=== PATIENT | male | born 1945 | race Caucasian/White ===

== ENCOUNTER 2018-10-08 15:21 | Inpatient (IN) | payer OTHER ==
[~2018-10-08] VITALS: Ht 188 cm; Wt 81.7 kg
[~2018-10-08 15:21] MED LIST: ASPIR 8181 MG; FERROUS GLUCON324 M1 PO; GLIPIZIDE-METF1 EAC2 PO; KAYEXALATE453.6 GM PO; LANTUS 3ML100 UNITS/ SQ; LISINOPRIL10 MG PO; PRAVASTATIN SOD20 MG PO; SULFAMETHOXAZO1 EAC1 PO
[2018-10-08] MEDS ORDERED: HYDROCODONE/APAP 5MG-325MG TAB PO ONE (16:15)
--- NOTE | 2018-10-08 17:26 | Diagnostic Imaging Report ---
Hip complete Indication: Fall, right hip pain ^R HIP Technique: AP and lateral views of right hip obtained. Comparison: None Findings: Fracture of the proximal neck of the right femur without significant displacement of fracture fragments. The femoral head remains articulated with the acetabulum. The acetabulum appears intact. The adjacent pubic rami appear intact. The left hip is intact and normally situated. No diastases the pubic symphysis or sacroiliac joints. There are degenerative changes of the visualized lumbar spine. IMPRESSION: Fracture of the proximal neck of the right femur without dislocation of the femoral head. Signed by: Dr. Pily Navarro MD on 10/08/2018 5:23 PM
[2018-10-08 18:28] LABS: BASOPHILS % 0.3 % (0.0-1.0); EOSINOPHILS # (AUTO) 0.1 (0.0-0.4); EOSINOPHILS % 0.9 % (0.0-6.0); HEMATOCRIT 32.5 % (38.2-49.6); HEMOGLOBIN 10.9 g/dL (14.0-18.0); LYMPHOCYTES # (AUTO) 0.5 (1.0-3.2); LYMPHOCYTES % 4.9 % (18.0-39.1); MEAN CORPUSCULAR HEMOGLOBIN 31.1 pg (28-32); MEAN CORPUSCULAR HGB CONC 33.5 g/dL (31-35); MEAN CORPUSCULAR VOLUME 92.6 fL (81-99); MONOCYTES # (AUTO) 0.9 (0.2-0.8); NEUTROPHILS # (AUTO) 8.8 (2.1-6.9); NEUTROPHILS % 84.4 % (38.7-80.0); PLATELET COUNT 266 x10e3/uL (140-360); RED BLOOD COUNT 3.51 x10e6/uL (4.3-5.7); RED CELL DISTRIBUTION WIDTH 15.3 % (11.7-14.4)
[2018-10-08] MEDS ORDERED: NIFEDIPINE 10 MG CAP PO ONE (18:30)
[2018-10-08] MEDS ORDERED: MORPHINE SULFATE 5 MG/ML VIAL IV ONE (18:30)
[2018-10-08] MEDS ORDERED: MORPHINE SULFATE INJ 4 MG/ML INJ 1ML IV ONE (18:30)
[2018-10-08 18:37] LABS: INR 0.84
[2018-10-08 18:38] LABS: PARTIAL THROMBOPLASTIN TIME 29.2 seconds (23.8-35.5)
[2018-10-08 18:41] LABS: ANION GAP 14.5 mmol/L (8-16); CALCIUM 8.3 mg/dL (8.4-10.2); CREATININE, SERUM 2.03 mg/dL (0.72-1.25); POTASSIUM 5.5 mmol/L (3.5-5.1)
[2018-10-08] MEDS ORDERED: MORPHINE SULFATE 2 MG/ML SYR 1ML IV PRN (18:45)
[2018-10-08] MEDS ORDERED: DEXTROSE 50% SYRINGE 50 ML IV PRN (18:45)
[2018-10-08] MEDS ORDERED: ONDANSETRON HCL INJ 2MG/ML 2ML 2 MG/ML VIAL IV PRN (18:45)
--- NOTE | 2018-10-08 18:52 | NUR ---
DR. TAPIA AND YEVGENIY RN NOTIFIED AND AWARE OF CRITICAL LAB VALUE; GLUCOSE 660.
[2018-10-08] MEDS ORDERED: INSULIN REGULAR, HUMAN 100 UNIT/1 ML 3ML VIAL IV ONE (19:00)
[2018-10-08] MEDS ORDERED: SODIUM CHLORIDE 0.9% 1000ML 1,000 ML IV ONE (19:00)
[2018-10-08] MEDS ORDERED: MORPHINE SULFATE INJ 4 MG/ML INJ 1ML IV PRN (19:00)
--- OUTSIDE RECORDS SUMMARY | 2018-10-08 19:05 | XMS REPORT ---
Author Author [facility] Address Unknown Phone Unavailable Care Team Providers Care Vocational Placement Specialist Name Role Phone Ade TAPIA Unavailable Unavailable Problems This patient has no known problems. Allergies, Adverse Reactions, Alerts This patient has no known allergies or adverse reactions. Medications This patient has no known medications. Results Test Description Test Time Test Comments Text Results Atomic Results Result Comments HIP RIGHT 2-3 VW (+/- PELVIS) 2018-10-08 17:19:00 [place] [address] Patient Name: ROSY WEBB JR, V MR #: [id number] : 1945 Age/Sex: 73/M Req #: [id number] Adm Physician: Ordered by: TEDDY TAPIA MD Report #: [id number] Location: ER Room/Bed: Procedure: [id number] DX/HIP RIGHT 2-3 VW (+/- PELVIS) Exam Date: Exam Time: REPORT STATUS: Signed Hip complete Indication: Fall, right hip pain R HIP Technique: AP and lateral views of right hip obtained. Comparison: None Findings: Fracture of the proximal neck of the right femur without significant displacement of fracture fragments. The femoral head remains articulated with the acetabulum. The acetabulum appears intact. The adjacent pubic rami appear intact. The left hip is intact and normally situated. N o diastases the pubic symphysis or sacroiliac joints. There are degenerative changes of the visualized lumbar spine. IMPRESSION: Fracture of the proximal neck of the right femur without dislocation of the femoral head. Signed by: Dr. Lionel Navarro MD on 10/08/2018 5:23 PM Dictated By: LIONEL NAVARRO MD 22 Transcribed By: AUBREY on 10/08/181722 COPY TO: TEDDY TAPIA MD
--- NOTE | 2018-10-08 19:32 | Diagnostic Imaging Report ---
EXAMINATION: CHEST SINGLE (PORTABLE) COMPARISON: None INDICATION: ^pre op ^[id number] ^1830 DISCUSSION: Frontal view of the chest obtained at 1853 hours. HEART AND MEDIASTINUM: The heart is normal in size. The aorta is tortuous LINES: None. LUNGS: The lungs are well inflated and clear. No pneumonia or pulmonary edema. PLEURA: No pleural effusion or pneumothorax. BONES AND SOFT TISSUES: No focal osseous lesion. The soft tissues are normal. IMPRESSION: No acute cardiopulmonary disease. Signed by: Dr. Pily Navarro MD on 10/08/2018 7:29 PM
--- NOTE | 2018-10-08 19:55 | NUR ---
Report received from Aleksey. Patient will be on Guzman's traction of 5 lbs. Patient will be on ADA diet no need for NPO after midnight. No plans for surgery yet. Plans to have consultation for senior production supervisor tomorrow no orders yet per Paola SHINE.
[2018-10-08] MEDS: LABETALOL HCL 5 MG/ML 20ML VIAL IV PRN (19:57)
[2018-10-08 20:05] VITALS: BP 190/84
--- NOTE | 2018-10-08 20:05 | NUR ---
Received patient from E.R. via stretcher. Patient is alert and responsive. Assisted to bed . Oriented to room. Call light within reached. Guzman's traction, Amando hose and foot pumps applied as ordered.
[2018-10-08] MEDS: INSULIN REGULAR, HUMAN 100 UNIT/1 ML 3ML VIAL SQ SCH (21:39)
[2018-10-08 22:02] VITALS: BP 190/84
--- NOTE | 2018-10-08 22:15 | NUR ---
Blood Pressure improving 170/73 mmhg. Asymptomatic.
[2018-10-08 22:50] VITALS: BP 190/84
[2018-10-09] VITALS (7 sets, daily range): BP systolic 121–190; BP diastolic 61–77
[2018-10-09] MEDS ORDERED: INSULIN GLARGINE 100 UNITS/ML VIAL SQ ONE (00:45)
[2018-10-09] MEDS ORDERED: SODIUM CHLORIDE 0.9% 1000ML 1,000 ML IV ONE (00:45)
[2018-10-09] MEDS ORDERED: ACETAMINOPHEN 325 MG TAB PO PRN (00:45)
--- NOTE | 2018-10-09 00:58 | NUR ---
History and Physical dictated [id number] Patient being optimized for surgery. He may pursue surgery when the glucose, creatinine, and potassium demonstrate better normalization/stability. No high indication for further cardiac specific workup at this time. There is inherent risk of pursuing a cardiac workup in the setting of his CKD and his baseline cardiac risk does not support this workup. His hip surgery would be unnecessarily delayed. Based on his baseline status, he may pursue surgery from a cardiac point of view withOUT a high risk. Routine perioperative care is recommended to minimize complication risks.
--- NOTE | 2018-10-09 01:00 | NUR ---
Called family and s/w . states she will come up to hospital to asst with her . Called MD and received pain meds and order for PRN sitter.
--- NOTE | 2018-10-09 02:03 | History and Physical ---
PRIMARY CARE DOCTOR: Dr. Maverick Parada. [facility] PHYSICIAN: Dr. Boston Gonzales [facility]. CHIEF COMPLAINT: Fall. HISTORY OF PRESENT ILLNESS: Mr. Verduzco is a 73-year-old gentleman with a fall. The patient in usual state of health when he was at the [employer]. The patient states he tripped over a rolled carpet. He landed on his right hip. The patient sustained pain immediately. The pain was at least moderate in intensity. The patient hard time walking, so he came to the emergency room. The patient came to emergency room where imaging was performed that demonstrated a fracture of the proximal neck of the right femur without dislocation of the femoral head. He was admitted for rapid workup and evaluation. The patient has never had any other surgeries in his life. He did not have any cardiac workup in the past. Exercise tolerance he gets is about 6 to 7 blocks assistance. The patient's EKG with normal sinus rhythm at 76 beats per minute, only nonspecific ST and T changes, but was near normal. PAST MEDICAL HISTORY: Hypertension, diabetes, anemia, and hyperlipidemia. MEDICATIONS: Medication list reviewed per the chart record. ALLERGIES: NO KNOWN DRUG ALLERGIES. SOCIAL HISTORY: No alcohol. No drugs. He smoked from 13 to active, two packs per day. 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 FAMILY HISTORY: Noncontributory to this condition. REVIEW OF SYSTEMS: GENERAL: No weight changes. OPHTHALMOLOGIC: No double vision. ENT: No mouth ulcers. ENDOCRINE: No thyroid disease. PULMONARY: No asthma. ALLERGY/IMMUNOLOGY: No chronic allergies. CARDIAC: No heart attack known. GI: No constipation. : No blood in urine. DERMATOLOGIC: No rash. MUSCULOSKELETAL: Mild arthritis. NEUROLOGIC: No seizures. PHYSICAL EXAMINATION: VITAL SIGNS: Afebrile, vital signs noted reviewed per the chart record. Blood pressure 190/84 and 75 heart rate. HEENT: Normocephalic and atraumatic. NECK: Supple. Throat midline. LUNGS: Bilateral air entry, reasonable, mostly clear. CARDIOVASCULAR: S1 and S2. No murmurs, rubs, or gallops. ABDOMEN: Soft and nontender. EXTREMITIES: No clubbing, no cyanosis, no edema. INTEGUMENT: No rash. No purpura. LABORATORY DATA: 133 sodium, 5.5 potassium, 20 bicarbonate, 39 BUN, and creatinine 2.03. MCV is 93, RDW is 15.3. Coagulation time is unremarkable. Chemistry with glucose 660, but it came down to 297. In June 2016, his creatinine was 1.5. Chest x-ray with clear lungs. IMPRESSION AND PLAN: 1. Acute right hip fracture. 2. Hyperkalemia, mild. 3. Hyponatremia, mild. 4. Chronic kidney disease, acute kidney injury. 5. Diabetes, uncontrolled. 6. Hypertension. 7. Hyperlipidemia. 8. Mild anemia. 9. Chronic smoker. Repeat blood work in the morning and distinctly more normalize before he goes for surgery. More consideration would be helpful in the long run. Repeat electrolytes in the morning and ensure stability. Control blood pressure slowly. Treat for hypertensive urgency. Hold metformin in preoperative manner. Thank you very much, Dr. Parada for allowing me the chance to participate in the care of Mr. Verduzco. Do not hesitate to call for questions. MD ORLANDO Dozier/ABBY /[id number] MTDLuis
[2018-10-09] MEDS: LABETALOL HCL 5 MG/ML 20ML VIAL IV PRN (05:03)
[2018-10-09 06:00] LABS: BASOPHILS % 0.4 % (0.0-1.0); EOSINOPHILS # (AUTO) 0.2 (0.0-0.4); HEMATOCRIT 31.8 % (38.2-49.6); HEMOGLOBIN 10.2 g/dL (14.0-18.0); LYMPHOCYTES # (AUTO) 1.3 (1.0-3.2); LYMPHOCYTES % 14.1 % (18.0-39.1); MEAN CORPUSCULAR HEMOGLOBIN 30.1 pg (28-32); MEAN CORPUSCULAR HGB CONC 32.1 g/dL (31-35); MEAN CORPUSCULAR VOLUME 93.8 fL (81-99); MONOCYTES # (AUTO) 1.1 (0.2-0.8); MONOCYTES % 11.7 % (4.4-11.3); NEUTROPHILS # (AUTO) 6.6 (2.1-6.9); NEUTROPHILS % 71.4 % (38.7-80.0); PLATELET COUNT 238 x10e3/uL (140-360); RED BLOOD COUNT 3.39 x10e6/uL (4.3-5.7); RED CELL DISTRIBUTION WIDTH 15.5 % (11.7-14.4)
[2018-10-09 06:12] LABS: ALBUMIN 2.8 g/dL (3.5-5.0); ANION GAP 13.4 mmol/L (8-16); CALCIUM 8.4 mg/dL (8.4-10.2); CREATININE, SERUM 1.52 mg/dL (0.72-1.25); MAGNESIUM 1.8 MG/DL (1.3-2.1); PHOSPHORUS 3.1 MG/DL (2.3-4.7); POTASSIUM 4.4 mmol/L (3.5-5.1)
--- NOTE | 2018-10-09 06:19 | NUR ---
Message left for Dr. Steiner regarding this consultation.
--- NOTE | 2018-10-09 07:00 | NUR ---
BEDSIDE SHIFT REPORT FROM MARIAM SHINE. PT DENIES NEEDS AT THIS TIME.
[2018-10-09] MEDS: INSULIN REGULAR, HUMAN 100 UNIT/1 ML 3ML VIAL SQ SCH ×4 (07:30→21:00)
--- NOTE | 2018-10-09 08:15 | Diagnostic Imaging Report ---
EXAMINATION: CHEST SINGLE (PORTABLE) INDICATION: Chronic kidney disease COMPARISON: None FINDINGS: AP view TUBES and LINES: None. LUNGS: Lungs are well inflated. Lungs are clear. There is mild prominence of the central pulmonary vasculature, consistent with pulmonary venous congestion. PLEURA: No pleural effusion or pneumothorax. HEART AND MEDIASTINUM: The cardiomediastinal silhouette is unremarkable. Aortic arch calcifications. BONES AND SOFT TISSUES: No acute osseous lesion. Soft tissues are unremarkable. UPPER ABDOMEN: No free air under the diaphragm. IMPRESSION: Central pulmonary vascular congestion. Signed by: Aashish Santoro DO on 10/09/2018 8:11 AM
[2018-10-09] MEDS: METOPROLOL TARTRATE 50 MG TAB PO SCH ×2 (08:26→17:58)
[2018-10-09] MEDS: HEPARIN SOD (PORCINE) 5,000 UNIT/ML VIAL SC SCH ×2 (08:27→21:00)
[2018-10-09] MEDS ORDERED: CEFAZOLIN SOD 1 GM VIAL IV ONE (18:30)
--- NOTE | 2018-10-09 19:56 | NUR ---
Received change of shift report from AM nurse. Walking rounds completed.
--- NOTE | 2018-10-09 20:39 | NUR ---
MEDICINE Coverage for Dr Gonzales Date of encounter: 10/09/18 SUBJECTIVE: pain ok RA fio2 creatinine better, k better bp mildly high earlier REVIEW OF SYSTEMS: no bleeding, no rash PHYSICAL EXAMINATION: VITAL SIGNS: vital signs noted reviewed per the chart record. HEENT: Normocephalic and atraumatic. NECK: Supple. Throat midline. LUNGS: Bilateral air entry, clear. CARDIOVASCULAR: S1 and S2. No murmurs, rubs, or gallops. ABDOMEN: Soft and nontender. EXTREMITIES: No clubbing, no cyanosis, no edema. INTEGUMENT: No rash. No purpura. LABORATORY DATA: 4.4 k, 24 hco3, bun 32, cr 1.52. 9.2 wbc, 32 hct, 238 plt. Chest x-ray with possible mild congestion IMPRESSION AND PLAN: 1. Acute right hip fracture. 2. Hyperkalemia, mild. 3. Hyponatremia, mild. 4. Chronic kidney disease, acute kidney injury. 5. Diabetes, uncontrolled. 6. Hypertension. 7. Hyperlipidemia. 8. Mild anemia. 9. Chronic smoker. Repeat AM labs d/c IVF follow glucose Hold blood thinners control bp Hold metformin in preoperative manner. No high indication for further cardiac specific workup at this time. There is inherent risk of pursuing a cardiac workup in the setting of his CKD and his baseline cardiac risk does not support this workup. His hip surgery would be unnecessarily delayed. Based on his baseline status, he may pursue surgery from a cardiac point of view withOUT a high risk. Routine perioperative care is recommended to minimize complication risks. Beta blockers Thank you very much, Dr. Parada for allowing me the chance to participate in the care of Mr. Verduzco. Do not hesitate to call for questions.
[2018-10-09] MEDS ORDERED: AMLODIPINE BESYLATE 5 MG TAB PO NR (20:45)
[2018-10-09] MEDS: INSULIN GLARGINE 100 UNITS/ML VIAL SQ SCH (21:00)
[2018-10-09] MEDS: PRAVASTATIN 20 MG TAB PO SCH (21:00)
[2018-10-09] MEDS ORDERED: INSULIN GLARGINE 100 UNITS/ML VIAL SQ SCH (21:00)
--- NOTE | 2018-10-09 22:00 | NUR ---
Patient confused and attemping to get out of bed. Pt removing bucks traction and at risk of falling. Bed alarm on and SR up x2-3. But patient continue to climb through bed SR. Continue monitor. IV intact Replaced mota traction. Offered patient to void.
[2018-10-10] VITALS: BP 176/73
--- NOTE | 2018-10-10 | NUR ---
Patient near fall. Informed house sup. Shantal Delarosa and charge nurse JUDE. Patient given tylenol.
[2018-10-10] MEDS ORDERED: SODIUM CHLORIDE 0.9% 1000ML 1,000 ML IV SCH ×2 (00:05→13:00)
[2018-10-10] MEDS ORDERED: ACETAMINOPHEN/CODEINE 300MG - 30MG TAB PO PRN (01:00)
--- NOTE | 2018-10-10 02:00 | NUR ---
arrived to hospital. Patient in bed resting quitly at this time. Continue monitor.
[2018-10-10 04:00] VITALS: BP 170/77
--- NOTE | 2018-10-10 04:00 | NUR ---
Patient BP at 170/77. PRN labatolol given. Continue monitor. Recheck BP.
[2018-10-10] MEDS: LABETALOL HCL 5 MG/ML 20ML VIAL IV PRN ×3 (04:47→15:59)
--- NOTE | 2018-10-10 05:58 | NUR ---
Patient continue to rest quitly with at bedside.
[2018-10-10 06:40] LABS: ANION GAP 10.2 mmol/L (8-16); CALCIUM 8.2 mg/dL (8.4-10.2); CREATININE, SERUM 1.42 mg/dL (0.72-1.25); POTASSIUM 4.2 mmol/L (3.5-5.1)
[2018-10-10] MEDS ORDERED: CEFAZOLIN SOD 2 GM/D5W 50ML 50 ML IV ONE (07:00)
--- NOTE | 2018-10-10 07:07 | NUR ---
pt alert resp even and unlabored this time, no s/s of distress noted at this time, pt able to make needs known, pt at bedside, pt call light in reach.
[2018-10-10] MEDS: INSULIN REGULAR, HUMAN 100 UNIT/1 ML 3ML VIAL SQ SCH ×4 (07:30→20:27)
[2018-10-10 08:16] VITALS: BP 198/91
[2018-10-10 08:22] VITALS: BP 198/91
[2018-10-10] MEDS: METOPROLOL TARTRATE 50 MG TAB PO SCH ×2 (09:00→17:26)
[2018-10-10] MEDS ORDERED: AMLODIPINE BESYLATE 5 MG TAB PO SCH (09:00)
[2018-10-10] MEDS ORDERED: CEFAZOLIN SOD 1 GM/NS 50ML 100 ML IV ONE (11:41)
--- NOTE | 2018-10-10 11:46 | NUR ---
MEDICINE Coverage for Dr Gonzales Date of encounter: 10/10/18 SUBJECTIVE: RA fio2 calm some confusion after morphine last night REVIEW OF SYSTEMS: no bleeding, no rash PHYSICAL EXAMINATION: VITAL SIGNS: vital signs noted reviewed per the chart record. HEENT: Normocephalic and atraumatic. NECK: Supple. Throat midline. LUNGS: Bilateral air entry, clear. CARDIOVASCULAR: S1 and S2. No murmurs, rubs, or gallops. ABDOMEN: Soft and nontender. EXTREMITIES: No clubbing, no cyanosis, no edema. INTEGUMENT: No rash. No purpura. LABORATORY DATA: k 4.2, cr 1.42. 9.2 wbc, 32 hct, plt 238 IMPRESSION AND PLAN: 1. Acute right hip fracture. 2. Chronic kidney disease stage III?, acute kidney injury better. 5. Diabetes, uncontrolled. 6. Hypertension. 7. Hyperlipidemia. 8. Mild anemia. 9. Chronic smoker. Light insulin, coverage of glucose Repeat AM labs IVF pre-op Surgery of hip today Hold blood thinners control bp Thank you very much, Dr. Parada for allowing me the chance to participate in the care of Mr. Verduzco. Do not hesitate to call for questions.
[2018-10-10] MEDS ORDERED: ACETAMINOPHEN 1000 MG/100 ML IV PRN (13:00)
[2018-10-10] MEDS ORDERED: NALOXONE HCL INJ 0.4 MG/ML AMP IV PRN (13:00)
[2018-10-10] MEDS ORDERED: FENTANYL CITRATE/PF 100MCG/2 ML INJ ONE ×2 (13:45→19:31)
[2018-10-10] MEDS ORDERED: HYDRALAZINE HCL 20 MG/ML VIAL ONE (13:56)
[2018-10-10] MEDS ORDERED: HYDROMORPHONE 0.2MG/ML-SOD CHL 30ML PCA SYRINGE IV ONE (14:17)
[2018-10-10] MEDS: HYDROMORPHONE 0.2MG/ML-SOD CHL 30ML PCA SYRINGE IV PRN ×3 (14:17→20:13)
--- NOTE | 2018-10-10 14:20 | NUR ---
pt arrived to room resp even and unlabored , pt has Jorgensen to gravity clear yell ow urine inside , pt states pain at 8/10 when asked pt was instructed to pump button on his CONSULTANT NURSE Dilaudid, call light in reach, family members at bedside.
[2018-10-10 15:50] VITALS: BP 183/76
--- NOTE | 2018-10-10 16:25 | Diagnostic Imaging Report ---
Exam: Right hip 2 views Clinical history: Status post right hip pinning Comparison: Right hip series, October 08, 2018 Findings: The patient is status post ORIF of right neck fracture. The fracture fragments are fixated with 3 lag screws inserted through the right greater trochanter. The overall alignment appears anatomical. Soft tissue is unremarkable. Impression: 1. Status post right proximal hip ORIF with postoperative changes. Signed by: Dr. Joseph Larson MD on 10/10/2018 4:22 PM
[2018-10-10] MEDS ORDERED: MAGNESIUM SULFATE 2GM/50ML 50 ML IV ONE (16:30)
[2018-10-10] MEDS: NIFEDIPINE CR 30 MG TAB PO SCH (16:53)
--- NOTE | 2018-10-10 19:00 | NUR ---
Received change of shift report from AM nurse. Walking rounds completed.
[2018-10-10] MEDS ORDERED: MIDAZOLAM HCL 2 MG/2 ML VIAL ONE (19:31)
[2018-10-10 20:00] VITALS: BP 156/69
[2018-10-10] MEDS: CEFAZOLIN SOD 1 GM/NS 50ML 50 ML IV SCH (20:00)
[2018-10-10] MEDS: PRAVASTATIN 20 MG TAB PO SCH (20:27)
[2018-10-10] MEDS: INSULIN GLARGINE 100 UNITS/ML VIAL SQ SCH (20:28)
--- NOTE | 2018-10-10 22:53 | Consultation ---
DATE OF CONSULTATION: 10/09/2018 Consultation Note HISTORY OF PRESENT ILLNESS: Mr. Guur Verduzco is known to our Nephrology Service, 73-year-old gentleman, underlying history of hypertension, type 2 diabetes with diabetic nephropathy, chronic kidney disease stage 3, history of hyperlipidemia, status post ORIF of right hip, renal consult for management of kidney failure. He is currently resting, by bedside. No apparent distress. ALLERGIES: NO APPARENT DRUG ALLERGIES. SOCIAL HISTORY: The patient continues to smoke. Does not drink. , good family support. CURRENT MEDICATIONS: On IV normal saline at 100 mL an hour. He is on hydromorphone, metoprolol 50 mg p.o. b.i.d., insulin q.a.c. and h.s., pravastatin 20 mg at bedtime, Xarelto 10 mg daily, Zofran p.r.n., received a dose of Ancef x3 perioperatively. PHYSICAL EXAMINATION: GENERAL: Awake, alert, oriented, lying supine, in no apparent distress VITAL SIGNS: With a blood pressure of 166/73, pulse rate 56, afebrile. HEAD AND NECK: Cornea clear. Mucosa moist. LUNGS: Relatively clear. Poor gas exchange, lower zones. HEART: S1, S2 audible. ABDOMEN: Otherwise soft, nontender. EXTREMITIES: Lower extremity examination, no edema or traction noted. IMPRESSION AND PLAN: 1. Bleul-ar-yzbibup kidney failure. 2. Underlying hypertension. 3. Type 2 diabetes. 4. End-organ damage. 5. Chronic kidney disease 3. LABORATORY DATA: Lab test shows sodium 136, potassium 4.4, bicarbonate 24, creatinine 1.5 with a magnesium level of 1.8 and phosphorus 3.1. IMPRESSION: Underlying mild hypomagnesemia, we will replace magnesium, titrate blood pressure medications. Heart rate noted. We will resume Lasix tomorrow. Serum creatinine appears at baseline. MD LOULOU Hercules/ABBY /[id number]
[2018-10-11] VITALS (9 sets, daily range): BP systolic 118–184; BP diastolic 53–82
--- NOTE | 2018-10-11 00:59 | NUR ---
Patient in bed becoming slightly confused. Pt removing tele. Encouraged patient to not remove tele. Patient verbalized understanding.
[2018-10-11] MEDS: HYDROMORPHONE 0.2MG/ML-SOD CHL 30ML PCA SYRINGE IV PRN (02:25)
--- NOTE | 2018-10-11 02:39 | NUR ---
Patient resting quitly with no c/o at this time. Continue monitor.
[2018-10-11] MEDS: CEFAZOLIN SOD 1 GM/NS 50ML 50 ML IV SCH ×2 (03:44→11:14)
--- NOTE | 2018-10-11 05:50 | NUR ---
Patient resting quitly with no c/o at this time. Continue monitor.
[2018-10-11 06:14] LABS: BASOPHILS % 0.3 % (0.0-1.0); EOSINOPHILS # (AUTO) 0.1 (0.0-0.4); EOSINOPHILS % 0.7 % (0.0-6.0); HEMATOCRIT 32.2 % (38.2-49.6); HEMOGLOBIN 10.5 g/dL (14.0-18.0); LYMPHOCYTES # (AUTO) 0.9 (1.0-3.2); LYMPHOCYTES % 9.1 % (18.0-39.1); MEAN CORPUSCULAR HEMOGLOBIN 30.6 pg (28-32); MEAN CORPUSCULAR HGB CONC 32.6 g/dL (31-35); MEAN CORPUSCULAR VOLUME 93.9 fL (81-99); MONOCYTES # (AUTO) 1.2 (0.2-0.8); MONOCYTES % 12.7 % (4.4-11.3); NEUTROPHILS # (AUTO) 7.3 (2.1-6.9); NEUTROPHILS % 76.8 % (38.7-80.0); PLATELET COUNT 241 x10e3/uL (140-360); RED BLOOD COUNT 3.43 x10e6/uL (4.3-5.7); RED CELL DISTRIBUTION WIDTH 15.5 % (11.7-14.4)
[2018-10-11 06:35] LABS: ALBUMIN 2.6 g/dL (3.5-5.0); ALBUMIN/GLOBULIN RATIO 0.8 (0.8-2.0); ANION GAP 13.6 mmol/L (8-16); CALCIUM 8.2 mg/dL (8.4-10.2); CREATININE, SERUM 1.59 mg/dL (0.72-1.25); MAGNESIUM 2.3 MG/DL (1.3-2.1); PHOSPHORUS 3.9 MG/DL (2.3-4.7); POTASSIUM 4.6 mmol/L (3.5-5.1)
--- NOTE | 2018-10-11 07:00 | NUR ---
BEDSIDE SHIFT REPORT FROM PRINCE SHINE. PT DENIES NEEDS AT THIS TIME.
[2018-10-11] MEDS: ONDANSETRON HCL INJ 2MG/ML 2ML 2 MG/ML VIAL IV PRN ×2 (07:11→13:58)
[2018-10-11] MEDS: INSULIN REGULAR, HUMAN 100 UNIT/1 ML 3ML VIAL SQ SCH ×4 (07:30→20:45)
--- NOTE | 2018-10-11 07:30 | Diagnostic Imaging Report ---
EXAMINATION: CHEST SINGLE (PORTABLE) INDICATION: Congestive heart failure COMPARISON: Chest radiograph 10/09/2018 FINDINGS: AP view TUBES and LINES: None. LUNGS: Lungs are well inflated. Lungs are clear. There is mild prominence of the central pulmonary vasculature, consistent with pulmonary venous congestion. PLEURA: No pleural effusion or pneumothorax. HEART AND MEDIASTINUM: The cardiomediastinal silhouette is unremarkable. BONES AND SOFT TISSUES: No acute osseous lesion. Soft tissues are unremarkable. UPPER ABDOMEN: No free air under the diaphragm. IMPRESSION: Central pulmonary vascular congestion. Signed by: Aashish Santoro DO on 10/11/2018 7:27 AM
[2018-10-11] MEDS: RIVAROXABAN 10 MG TABLET PO SCH (08:31)
[2018-10-11] MEDS: FUROSEMIDE 40 MG TAB PO SCH (08:31)
[2018-10-11] MEDS: NIFEDIPINE CR 30 MG TAB PO SCH (08:32)
[2018-10-11] MEDS: METOPROLOL TARTRATE 50 MG TAB PO SCH ×2 (08:32→17:09)
--- NOTE | 2018-10-11 12:45 | NUR ---
EDUCATED ABOUT IMM, SIGNED, FILED IN CHART, WITH COPY LEFT WITH FAMILY AT BEDSIDE. GOT CHOICE FOR [facility] AND FAXED CLINICALS. RTF COMPLETED AND PUT WITH PACKET AT NURSES STATIONS.
[2018-10-11] MEDS ORDERED: HYDROCODONE/APAP 10MG-325MG TAB PO PRN (16:45)
[2018-10-11] MEDS ORDERED: HYDROCODONE/APAP 5MG-325MG TAB PO PRN (16:45)
--- NOTE | 2018-10-11 18:32 | NUR ---
GROVES REMOVED AT THIS TIME. PT TOLERATED.
--- NOTE | 2018-10-11 19:10 | NUR ---
report received. patient in stable condition. aaox3, sitting in bed. right hip dressing c/d/i. foot pumps bilaterally, erik hose to left leg. no needs voiced at this time. patient dtv- instructed to use urinal and call once void. bed locked and in lowest position, call light within easy reach. bed alarm on.
[2018-10-11] MEDS: PRAVASTATIN 20 MG TAB PO SCH (20:45)
[2018-10-11] MEDS: INSULIN GLARGINE 100 UNITS/ML VIAL SQ SCH (20:45)
--- NOTE | 2018-10-11 23:23 | NUR ---
MEDICINE Coverage for Dr Gonzales Date of encounter: 10/11/18 SUBJECTIVE: Less confusion today he was having emesis bouts family delivered lots of outside food and smokeless tobacco for the patient RA fio2 REVIEW OF SYSTEMS: no bleeding, no rash PHYSICAL EXAMINATION: VITAL SIGNS: vital signs noted reviewed per the chart record. HEENT: Normocephalic and atraumatic. NECK: Supple. Throat midline. LUNGS: Bilateral air entry, clear. CARDIOVASCULAR: S1 and S2. No murmurs, rubs, or gallops. ABDOMEN: Soft and nontender. EXTREMITIES: No clubbing, no cyanosis, no edema. INTEGUMENT: No rash. No purpura. LABORATORY DATA: hct 32, 9.5 wbc, plt 241 k 4.6, cr 1.59 IMPRESSION AND PLAN: 1. Acute right hip fracture. 2. Chronic kidney disease stage III?, acute kidney injury better. 5. Diabetes, uncontrolled. 6. Hypertension. 7. Hyperlipidemia. 8. Mild anemia. 9. Chronic smoker. d/c SPLITTER OPERATOR d/c parrish after SPLITTER OPERATOR off Light insulin coverage for glycemia follow emesis, supportive care. once functional, decide on disposition DVT ppx - rivaroxaban was started control bp slowly Thank you very much, Dr. Parada for allowing me the chance to participate in the care of Mr. Verduzco. Do not hesitate to call for questions.
[2018-10-12 04:39] VITALS: BP 136/63
[2018-10-12 05:42] LABS: HEMATOCRIT 28.3 % (38.2-49.6); HEMOGLOBIN 9.4 g/dL (14.0-18.0)
--- NOTE | 2018-10-12 06:44 | Diagnostic Imaging Report ---
EXAMINATION: CHEST SINGLE (PORTABLE) INDICATION: Congestive heart failure COMPARISON: Chest radiograph 10/11/2018 FINDINGS: AP view TUBES and LINES: None. LUNGS: Lungs are well inflated. Subtle hazy opacity in the right apex. There is mild prominence of the central pulmonary vasculature, consistent with pulmonary venous congestion. PLEURA: No pleural effusion or pneumothorax. HEART AND MEDIASTINUM: The cardiomediastinal silhouette is unremarkable. BONES AND SOFT TISSUES: No acute osseous lesion. Soft tissues are unremarkable. UPPER ABDOMEN: No free air under the diaphragm. IMPRESSION: Pulmonary vascular congestion. Subtle hazy opacity in the right lung apex may represent trace pleural fluid Signed by: Aashish Santoro DO on 10/12/2018 6:41 AM
--- NOTE | 2018-10-12 07:00 | NUR ---
BEDSIDE SHIFT REPORT FROM WALLPAPERER HELPER RN. PT DENIES NEEDS AT THIS TIME.
[2018-10-12] MEDS: INSULIN REGULAR, HUMAN 100 UNIT/1 ML 3ML VIAL SQ SCH ×4 (07:30→20:13)
[2018-10-12 07:51] VITALS: BP 191/77
[2018-10-12] MEDS: METOPROLOL TARTRATE 50 MG TAB PO SCH ×2 (07:53→16:39)
[2018-10-12] MEDS: FUROSEMIDE 40 MG TAB PO SCH (07:53)
[2018-10-12] MEDS: RIVAROXABAN 10 MG TABLET PO SCH (07:53)
[2018-10-12] MEDS: NIFEDIPINE CR 30 MG TAB PO SCH (07:54)
[2018-10-12 08:00] VITALS: BP 191/77
[2018-10-12 11:51] VITALS: BP 108/49
--- NOTE | 2018-10-12 15:17 | NUR ---
pt refusing this pm due to pain level i9s high from the walk this am... Addendum: 10/12/18 at 1518 by Corey Ross PTA Amended: Links added.
[2018-10-12 15:27] VITALS: BP 164/71
[2018-10-12 19:33] VITALS: BP 159/69
[2018-10-12] MEDS: INSULIN GLARGINE 100 UNITS/ML VIAL SQ SCH (20:14)
[2018-10-12] MEDS: PRAVASTATIN 20 MG TAB PO SCH (20:52)
--- NOTE | 2018-10-12 23:13 | Progress Note ---
DATE: ADMITTING PHYSICIAN: Mariela Gonzales MD. CHIEF COMPLAINT: Right hip pain post surgery. SUBJECTIVE: No complaints. OBJECTIVE: VITAL SIGNS: Temperature 96.7, pulse 62, BP 108/49, respiratory rate is 18 and SpO2 is 99%. MEDICATIONS: See MAR. REVIEW OF SYSTEMS: Normal. ENT: No mouth ulcers. CARDIOLOGY: No chest pains. GI: No constipation. No nausea, vomiting. LUNGS: No shortness of breath or cough. PHYSICAL EXAMINATION: VITAL SIGNS: See above. LABORATORY DATA: Please see labs. ASSESSMENT/PLAN: 1. Acute right hip fracture, status post surgery ORIF. 2. Hypertension. Continue current medications. 3. Diabetes. 4. Chronic kidney disease. 5. Dyslipidemia. PLAN: The patient is taking medications, no acute distress, pain controlled with current medications, participating with PT. Case management has been consulted, pending SNF placement. Dictated by PAOLA Jimenez Mariela Gonzales MD MY/MODL /[id number]
[2018-10-12] MEDS: LABETALOL HCL 5 MG/ML 20ML VIAL IV PRN (23:22)
[2018-10-13] VITALS (7 sets, daily range): BP systolic 142–188; BP diastolic 50–84
[2018-10-13] MEDS: LABETALOL HCL 5 MG/ML 20ML VIAL IV PRN (05:30)
--- NOTE | 2018-10-13 07:00 | NUR ---
BEDSIDE SHIFT REPORT FROM CAR TRACER RN. PT DENIES NEEDS AT THIS TIME.
[2018-10-13] MEDS: RIVAROXABAN 10 MG TABLET PO SCH (07:58)
[2018-10-13] MEDS: INSULIN REGULAR, HUMAN 100 UNIT/1 ML 3ML VIAL SQ SCH ×4 (08:01→20:41)
[2018-10-13] MEDS: FUROSEMIDE 40 MG TAB PO SCH (08:05)
[2018-10-13] MEDS: METOPROLOL TARTRATE 50 MG TAB PO SCH ×2 (08:05→17:06)
[2018-10-13] MEDS: NIFEDIPINE CR 30 MG TAB PO SCH (08:06)
--- NOTE | 2018-10-13 15:15 | Progress Note ---
DATE: CHIEF COMPLAINT: Right hip pain s/p ORIF of Right femur neck. REVIEW OF SYSTEMS: GENERAL: No distress LUNGS: No shortness of breath or cough. CARDIOVASCULAR: No chest pain or palpitations. ABDOMEN: No Nausea/ vomitting or change in bowel habits. EXTREMITIES: Decreased ROM of RLE, uses walker for ambulation. PHYSICAL EXAMINATION: VITAL SIGNS: Temperature 96.6, pulse 57, BP 142/69, respirations 20, and O2 saturations 99%. GENERAL: Awake, alert, and oriented x3. LUNGS: Clear to auscultation. No acute distress noted, CARDIOVASCULAR: Normal rate and rhythm ABDOMEN: Soft, nontender, nondistended. EXTREMITIES: Right extremity pain with range of motion. No edema LABORATORY DATA: Please see lab results. MEDICATIONS: Please see MAR. ASSESSMENT: 1. Uncontrolled hypertension: continue current pt medicatons, iv labetalol as needed. 2. Diabetes type 2: We will check bs ac and hs with a sliding scale coverage. 3. Right femur fracture, status post surgery, pain management and physical therapy. 4. Anemia of chronic disease. We will continue to monitor. PLAN: The patient is pending SNF placement, however, the patient is stating that he would like to go back home with home health for physical therapy. we will reconsult cm for discharge needs. PAOLA Jimenez/ABBY /[id number] KATHLEEN
[2018-10-13] MEDS: PRAVASTATIN 20 MG TAB PO SCH (20:40)
[2018-10-13] MEDS: INSULIN GLARGINE 100 UNITS/ML VIAL SQ SCH (20:41)
[2018-10-14] VITALS (8 sets, daily range): BP systolic 128–191; BP diastolic 59–80
--- NOTE | 2018-10-14 03:33 | NUR ---
CALLED DR. BOB AT THIS TIME. LEFT A VOICEMAIL REGARDING PATIENT'S BP AND HR. AWAITING CALL BACK.
--- NOTE | 2018-10-14 03:42 | NUR ---
SPOKE TO DR. BOB AT THIS TIME. NEW ORDER RCV FOR PRN HYDRALAZINE IV.
[2018-10-14] MEDS ORDERED: HYDRALAZINE HCL 20 MG/ML VIAL IV PRN (03:45)
--- NOTE | 2018-10-14 07:01 | NUR ---
received bedside report from night assistant RN. pt resting in bed, call light within reach, in stable condition. will continue to assess.
[2018-10-14] MEDS: INSULIN REGULAR, HUMAN 100 UNIT/1 ML 3ML VIAL SQ SCH ×2 (07:30→12:05)
[2018-10-14] MEDS: RIVAROXABAN 10 MG TABLET PO SCH (08:20)
[2018-10-14] MEDS: FUROSEMIDE 40 MG TAB PO SCH (08:20)
[2018-10-14] MEDS: NIFEDIPINE CR 30 MG TAB PO SCH (08:20)
[2018-10-14] MEDS: METOPROLOL TARTRATE 50 MG TAB PO SCH (08:23)
--- NOTE | 2018-10-14 09:36 | NUR ---
EDUCATED ABOUT IMM, SIGNED, FILED IN CHART, WITH COPY LEFT WITH FAMILY AT BEDSIDE.
--- NOTE | 2018-10-14 10:20 | NUR ---
CM RECEIVED ORDERS FOR HOME HEALTH SERVICES. HÉCTOR LIMON TO BEDSIDE TO SPEAK WITH PATIENT - PATIENT REQUESTED DC POC DISCUSSION WITH HIS . CM PLACED CALL TO TAMAR/PATIENT'S ([phone]) TO DISCUSS PATIENT CHOICE FOR HH SERVICES. SHE HAS REQUESTED [facility] VIA TELEPHONE. CM FAXED REFERRAL PACKET TO [facility] (F:[phone], O:[phone]).
--- NOTE | 2018-10-14 12:25 | NUR ---
[facility] state have not received clinical information. CM emailed referral packet to [email or web address]. They state they have received packet. However, they need a MD signed order. CM placed call to Dr. Gonzales requesting signature. BETTINA also notified DEREK Jameson/Dr. Gonzales HAND BLOCKER for signature request from . CM awaiting callback from .
--- NOTE | 2018-10-14 12:53 | NUR ---
CM RECEIVED CALL FROM [facility] LIASON STATING PATIENT WILL BE ACCEPTED FOR SERVICES. CM NOTIFIED BEDSIDE NURSE. DR. BOB HH ORDER SIGNED AND SENT TO [employer]. HOME HEALTH DISCHARGE NOTE PATIENT ADDRESS WHERE SERVICE WILL BE RECEIVED: [address] [place] [address] PATIENT CONTACT NUMBER: [phone] NAME OF [facility] COMPANY: [employer] [facility] TELEPHONE/FAX NUMBER OF COMPANY: P; [phone]; F: [phone] SERVICES TO RECEIVE: NURSING EVAL, THERAPIES, INDUSTRIAL DESIGN ENGINEER ANTICIPATED DATE SERVICES WILL BEGIN: 10/15/18 CM REQUESTED PATIENT/FAMILY Please call the company above if you have not received a call to schedule a home visit within 24 hours of discharge.
[2018-10-14] MEDS ORDERED: NIFEDIPINE ER30 M1 PO (13:27)
[2018-10-14] MEDS ORDERED: TYLENOL # 31 EA PO (13:27)
[2018-10-14] MEDS ORDERED: XARELTO10 MG PO (13:32)
[2018-10-14] MEDS ORDERED: ONDANSETRON HCL 4 MG ORAL DISINTEGRATING TAB PO PRN (14:15)
--- NOTE | 2018-10-14 19:46 | Discharge Summary ---
PRIMARY CARE PHYSICIAN: Dr. Maverick Parada at [facility]. FINAL DISCHARGE DIAGNOSES: 1. Status post right femur fracture open reduction and internal fixation. 2. Hypertension. 3. Diabetes type 2. 4. Chronic kidney disease, stage 3. CONSULTANTS: 1. Dr. Lewis Carrillo, Orthopedics. 2. Dr. Mart for CKD. PROCEDURES DURING THE STAY: He had ORIF of the right fracture of femoral neck. HISTORY: Per HPI. HOSPITAL COURSE: The patient was admitted on October 08, 2018, after an accidental fall. Imaging showed that he had right femoral neck fracture. Orthopedics was consulted and he underwent ORIF of the right hip. He was continued on pain management, weightbearing as tolerated to the right lower extremity. Physical therapy was consulted, evaluated the patient, and was working with the patient. Initially, the patient was planning to go to a halfway facility, but he felt like he progressed well and changed his mind and wanted to go home with home health for PT and halfway. During his stay, he had an episode of elevated blood pressures, especially during the night, nifedipine and metoprolol were added to his home medication regimen. At home, he takes lisinopril 40 mg p.o. daily and family feels like his blood pressure has been controlled, do not want any further changes in his medication, and wanted to follow up with Dr. Parada in 1-2 weeks. PHYSICAL EXAMINATION: VITAL SIGNS: blood pressure 128/59, temperature 97.8, pulse 54, respirations 20, oxygen saturation 96% on room air. GENERAL: Alert, awake, and oriented x3. Appears to be in no acute distress. HEENT: No sores in the mouth. LUNGS: Clear to auscultation. CARDIOVASCULAR: Normal sinus rhythm. ABDOMEN: Soft and nontender. NEUROLOGIC: Alert and oriented x3. MUSCULOSKELETAL: Right lower extremity pain with ambulation. LABORATORY DATA: Please see labs. CONDITION AT DISCHARGE: Improved. DISCHARGE MEDICATIONS: see medication reconciliation. FOLLOWUP: 1. With Dr. Maverick Parada in 1-2 weeks. 2. Follow up with Dr. Lewis Carrillo in 7-10 days. PAOLA Jimenez MY/MODL /[id number] MTDD
[2018-10-15] MEDS ORDERED: DEXAMETHASONE SOD PHOS INJ 4 MG/ML VIAL ONE (19:41)
[2018-10-15] MEDS ORDERED: ONDANSETRON HCL INJ 2MG/ML 2ML 2 MG/ML VIAL ONE (19:41)
[2018-10-15] MEDS ORDERED: PROPOFOL IV EMULSION 10 MG/ML 20 ML VIAL ONE (19:41)
[2018-10-15] MEDS ORDERED: SEVOFLURANE INHAL SOLN 250 ML PEN BTL ONE (19:41)
[2018-10-15] MEDS ORDERED: LIDOCAINE HCL 2% LOCAL INJ 5 ML SDV VIAL INJ ONE (19:41)
--- NOTE | 2018-10-17 11:59 | Operative Report ---
DATE OF PROCEDURE: 10/10/2018 SURGEON: Lewis Carrillo MD PREOPERATIVE DIAGNOSIS: Nondisplaced right femoral neck fracture. POSTOPERATIVE DIAGNOSIS: Nondisplaced right femoral neck fracture. OPERATION AND PROCEDURE PERFORMED: The patient underwent a closed reduction and percutaneous pin fixation of the right femoral neck fracture. CHIEF RECORDIST: Lin Wooten. ANESTHESIA: General endotracheal intubation anesthesia. IV FLUIDS: Per the anesthesia record. BRIEF DESCRIPTION OF THE PATIENT'S OPERATIVE PROCEDURE: Mr. Verduzco was taken to the operating room, placed in supine position on the fracture table. Following induction of general anesthesia as well as endotracheal intubation, the patient's right lower extremity was placed in a well-padded longitudinal traction. The left lower extremity was placed in a well-padded lithotomy position. Fluoroscopic evaluation of the right hip joint demonstrated a minimally displaced right femoral neck fracture. The leg was manipulated under anesthesia and this resulted in anatomic realignment of the patient's femoral neck fracture. The patient's thigh and flank were then prepped and draped in standard surgical fashion. The case was created over the lateral aspect of the hip and this incision was carried through the skin only. Blunt dissection was used to deepen the incision to the level of the tensor fascia anand and gluteus henna fascia. This was divided in line with the skin incision. A guide was placed against the lateral aspect of the femur. Three pins from the 7.3 cannulated screw system were advanced from lateral to medial across the neck into the head of the femur. The position of these pins were checked in both the AP and lateral planes. Screws were then advanced across the fracture site. Compression was placed across the fracture. The hip was then visualized again and in the AP and lateral plane and found to have acceptable reduction of the patient's injury with retained hardware. This wound was copiously irrigated and then closed in a multilayer fashion. Sterile dressings were applied. The patient was then awakened and taken to postanesthesia care unit in stable condition. Lin Wooten acted as sales and marketing assistant for this case and was necessary for the prepping and draping the patient as well as retraction of soft tissues and closure of the wounds that allowed this case to be successful. Lewis Carrillo MD EBR/MODTanna /[id number]
== END 2018-10-14 15:24 | disposition home health service (06) | DRG 481 ==
LOC: ER 15:21 → ERHOLD 18:39 → MED/SURG 20:05
PROVIDERS: ADMIT Internal Medicine; ATTEND Internal Medicine
PROC: 0QH834Z Insertion of Internal Fixation Device into Right Femoral Shaft, Percutaneous Approach (ICD-10-PCS; principal; 2018-10-08)
DX: S72.91XA Unspecified fracture of right femur, initial encounter for closed fracture (principal); N17.9 Acute kidney failure, unspecified; E87.1 Hypo-osmolality and hyponatremia; T14.8XXA Other injury of unspecified body region, initial encounter; W18.30XA Fall on same level, unspecified, initial encounter; W19.XXXA Unspecified fall, initial encounter; E87.5 Hyperkalemia; E11.65 Type 2 diabetes mellitus with hyperglycemia; E11.22 Type 2 diabetes mellitus with diabetic chronic kidney disease; D64.9 Anemia, unspecified; I12.9 Hypertensive chronic kidney disease with stage 1 through stage 4 chronic kidney disease, or unspecified chronic kidney disease; N18.3 Chronic kidney disease, stage 3 (moderate)
CPT/HCPCS: 36415; 71045; 76000; 80048; 80053; 82948; 83036; 83735; 84100; 85014; 85018; 85025; 85610; 85730; 86850; 86900; 93005; 96372; 97139; 99284; C1713; J0360; J0690; J1644; J1815; J1817; J2250; J2270; J2405; J3010; J3475; J7030

== ENCOUNTER 2019-05-07 16:44 | Emergency (ER) | payer OTHER ==
[~2019-05-07] VITALS: Ht 193 cm; Wt 81.6 kg
[~2019-05-07 16:44] MED LIST changes: +NIFEDIPINE ER30 M1 PO; +TYLENOL # 31 EA PO; +XARELTO10 MG PO
[2019-05-07] MEDS ORDERED: CLONIDINE HCL 0.1 MG TAB ONE (18:55)
[2019-05-07] MEDS ORDERED: CLONIDINE HCL 0.2 MG TAB PO ONE (19:00)
[2019-05-07 19:43] VITALS: BP 221/88
== END 2019-05-07 19:25 | disposition home or self-care (01) ==
LOC: FSED 16:44
DX: H93.13 Tinnitus, bilateral (principal); H61.21 Impacted cerumen, right ear; J30.1 Allergic rhinitis due to pollen; I10 Essential (primary) hypertension; E11.9 Type 2 diabetes mellitus without complications; E78.5 Hyperlipidemia, unspecified
CPT/HCPCS: 36415; 82948; 99283

== ENCOUNTER 2019-11-10 13:16 | Inpatient (IN) | payer OTHER ==
[~2019-11-10] VITALS: Ht 193 cm; Wt 81.6 kg
[2019-11-10] MEDS ORDERED: ONDANSETRON HCL INJ 2MG/ML 2ML 2 MG/ML VIAL IV STA (13:34)
[2019-11-10] MEDS ORDERED: MORPHINE SULFATE INJ 4 MG/ML INJ 1ML IV STA (13:34)
[2019-11-10] MEDS ORDERED: SODIUM CHLORIDE 0.9% 1000ML 1,000 ML IV STA (13:34)
[2019-11-10 14:17] LABS: BASOPHILS # (AUTO) 0.1 (0.0-0.1); BASOPHILS % 0.9 % (0.0-1.0); EOSINOPHILS # (AUTO) 0.2 (0.0-0.4); EOSINOPHILS % 2.9 % (0.0-6.0); HEMATOCRIT 35.2 % (38.2-49.6); HEMOGLOBIN 11.4 g/dL (14.0-18.0); LYMPHOCYTES # (AUTO) 1.1 (1.0-3.2); LYMPHOCYTES % 15.5 % (18.0-39.1); MEAN CORPUSCULAR HEMOGLOBIN 30.2 pg (28-32); MEAN CORPUSCULAR HGB CONC 32.4 g/dL (31-35); MEAN CORPUSCULAR VOLUME 93.4 fL (81-99); MONOCYTES # (AUTO) 0.5 (0.2-0.8); MONOCYTES % 7.4 % (4.4-11.3); NEUTROPHILS # (AUTO) 5.1 (2.1-6.9); NEUTROPHILS % 72.9 % (38.7-80.0); PLATELET COUNT 227 x10e3/uL (140-360); RED BLOOD COUNT 3.77 x10e6/uL (4.3-5.7); RED CELL DISTRIBUTION WIDTH 13.9 % (11.7-14.4)
[2019-11-10 14:32] LABS: INR 0.93; PROTHROMBIN TIME 12.9 seconds (11.9-14.5)
[2019-11-10 14:33] LABS: PARTIAL THROMBOPLASTIN TIME 31.2 seconds (23.8-35.5)
[2019-11-10 14:39] LABS: ALBUMIN 3.7 g/dL (3.5-5.0); ALBUMIN/GLOBULIN RATIO 1.5 (0.8-2.0); ANION GAP 13.8 mmol/L (8-16); CALCIUM 7.7 mg/dL (8.4-10.2); CREATININE, SERUM 2.49 mg/dL (0.72-1.25)
[2019-11-10 14:44] LABS: POTASSIUM 5.8 mmol/L (3.5-5.1)
[2019-11-10 14:46] LABS: CREATINE KINASE MB 3.4 ng/mL (0-5.0)
--- NOTE | 2019-11-10 14:47 | Diagnostic Imaging Report ---
EXAMINATION: Head and cervical spine CT without contrast. HISTORY: 74-year-old male, post fall, trauma, head and neck pain COMPARISON: None. TECHNIQUE: Multidetector axial images were obtained without contrast from the foramen magnum to the vertex and through the cervical spine. Dose modulation, iterative reconstruction, and/or weight based adjustment of the mA/kV was utilized to reduce the radiation dose to as low as reasonably achievable. HEAD CT FINDINGS: Skull/scalp: No lytic or blastic lesions. No fractures. Parenchyma: Few scattered white matter hypodensities, most likely nonspecific chronic microvascular ischemic changes. No mass, hemorrhage or CT evidence of acute vascular insult. Brain volume: Disproportionate dilatation of the right temporal horn, which may be compensatory to right temporal lobe atrophy, perhaps the sequela from prior insult such as trauma, ischemia or infection versus related to Alzheimer's disease in the appropriate clinical setting. Ventricles: No hydrocephalus or displacement. Arteries: No density suggestive of thrombus. Dural sinuses: No abnormal density. Extra-axial spaces: No abnormal density. Foramen magnum: No mass, Chiari malformation, or basilar invagination. Sella: No obvious mass. Paranasal/mastoid sinuses: Imaged portions unremarkable. CERVICAL SPINE CT FINDINGS: Alignment:Normal alignment and lordosis. Soft tissues: Normal. Vertebrae: Normal height and density. No acute fracture, infection or neoplasm. Degenerative changes: C1-C2: Degenerative changes without stenosis. C2-C3: Uncovertebral and facet arthrosis without stenosis. C3-C4: Disc osteophyte compresses formation, uncovertebral and facet arthrosis. Moderate right foraminal stenosis. Mild canal narrowing. C4-C5: Disc osteophyte complex formation, uncovertebral and facet necrosis on the left. Moderate left neural foraminal stenosis. C5-C6: Uncovertebral arthrosis on the left, mild foraminal narrowing. C6-C7: Uncovertebral and facet arthrosis on the left without canal or foraminal stenosis. C7-T1: Normal IMPRESSION: Head CT: 1. No acute postraumatic intracranial hemorrhage. 2. Mild chronic microvascular ischemic changes. 3. Disproportionate prominence of the right temporal horn from atrophy as described. Cervical spine CT: 1. No acute fractures or dislocations. 2. Chronic degenerative changes as detail above. Note: Acute post traumatic spinal cord, vascular or ligamentous injury cannot adequately be assessed with CT. Signed by: Dr. Caridad Hong M.D. on 11/10/2019 2:44 PM
--- NOTE | 2019-11-10 15:15 | Diagnostic Imaging Report ---
TECHNIQUE: 2-3 views of the left hip. Minimum 2 views of the left femur. 3 views of the left knee INDICATION: ^FALL ^[id number] ^[id number]. COMPARISON: None. FINDINGS: LEFT HIP Acute, intertrochanteric left femoral fracture with mild, 1.1 cm distraction. There are intramedullary nails in the right proximal femur. Moderate degenerative changes at L4-L5. Calcification of the arteries of the left leg. LEFT FEMUR No acute fractures or dislocations. Joint spaces are within normal limits. Soft tissues are grossly unremarkable. LEFT KNEE No acute fractures or dislocations. Joint spaces are within normal limits. Soft tissues are grossly unremarkable. IMPRESSION: Acute, intertrochanteric left femoral fracture. Signed by: Luis F Duncan JR, MD on 11/10/2019 3:11 PM
--- NOTE | 2019-11-10 15:17 | Diagnostic Imaging Report ---
TECHNIQUE: Frontal view of the chest. INDICATION: ^FALL ^[id number] ^[id number]. COMPARISON: None. FINDINGS: LINES/TUBES: None. LUNGS: There is some questionable streaky and patchy opacity in the left base. PLEURA: No pneumothorax or significant pleural effusion. HEART AND MEDIASTINUM: The cardiomediastinal silhouette is within normal limits. SOFT TISSUES AND BONES: Unremarkable. IMPRESSION: There is some questionable streaky and patchy opacity in the left base which could be due to atelectasis but is indeterminate. Consider further evaluation with PA and lateral chest radiographs. Signed by: Luis F Duncan JR, MD on 11/10/2019 3:14 PM
[2019-11-10] MEDS ORDERED: SODIUM CHLORIDE 0.9% 1000ML 1,000 ML ONE (15:49)
--- NOTE | 2019-11-10 15:52 | NUR ---
pt given urinal to void and then will do a bladder scan per md to see if parrish needed.
[2019-11-10] MEDS ORDERED: MORPHINE SULFATE 2 MG/ML SYR 1ML IV PRN (16:00)
[2019-11-10] MEDS ORDERED: SODIUM CHLORIDE 0.9% 1000ML 1,000 ML IV SCH (16:00)
--- NOTE | 2019-11-10 16:02 | Emergency Department Note ---
History of Present Illnes History of Present Illness Chief Complaint: Extremity Trauma/Pain History of Present Illness This is a 74 year old male trip and fall. no loc, did not hit head. pt aaox4. pain to left knee and left hip. +dp. pt states broke right hip in past. leg shorten and rotated outward. 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 Any updates have been documented here. Past Medical History Recent Fever: No Clinical Suspicion of Infectio: No New/Unexplained Change in Ment: No Past Medical History: Hypertension, Diabetes, Hyperlipedemia Other Medical History: ANEMIA HIGH CHOLESTEROL Past Surgical History: Hip Replacement Other Surgery: eye surgery Social History Smoking Cessation: Former smoker Counseling Performed: No Alcohol Use: Social Any Illegal Drug Use: No TB Exposure/Symptoms: No Physically hurt or threatened: No Family History Family history of heart diseas: No Other Last Tetanus: UTD Any Pre-Existing Lines (PICC,: No Review of Systems Review of Systems Constitutional: Reports no symptoms EENTM: Reports no symptoms Cardiovascular: Reports no symptoms Respiratory: Reports no symptoms Gastrointestinal: Reports no symptoms Genitourinary: Reports no symptoms Musculoskeletal: Reports as per HPI Integumentary: Reports no symptoms Neurological: Reports no symptoms Psychological: Reports no symptoms Endocrine: Reports no symptoms Hematological/Lymphatic: Reports no symptoms Physical Exam Related Data Allergies: Coded Allergies: No Known Allergies (Unverified , 07/10/16) Triage Vital Signs Vital Signs Date Time Temp Pulse Resp B/P (MAP) Pulse Ox O2 Delivery O2 Flow Rate FiO2 11/10/19 13:37 98.4 84 16 195/78 100 Room Air Physical Exam CONSTITUTIONAL Constitutional: Present well-developed, Present well-nourished HENT HENT: Present normocephalic, Present atraumatic, Present oropharynx clear/moist, Present nose normal HENT L/R: Present left ext ear normal, Present right ext ear normal EYES Eyes: Reports PERRL, Reports conjunctivae normal NECK Neck: Present ROM normal PULMONARY Pulmonary: Present effort normal, Present breath sounds normal CARDIOVASCULAR Cardiovascular: Present regular rhythm, Present heart sounds normal, Present capillary refill normal, Present normal rate GASTROINTESTINAL Abdominal: Present soft, Present nontender, Present bowel sounds normal GENITOURINARY Genitourinary: Present exam deferred SKIN Skin: Present warm, Present dry MUSCULOSKELETAL Musculoskeletal: Present other (TENDER AT LEFT HIP, PELVIS STABLE, LEFT LEG SHORTENED AND EXT ROTATED) NEUROLOGICAL Neurological: Present alert, Present oriented x 3, Present no gross motor or sensory deficits PSYCHOLOGICAL Psychological: Present mood/affect normal, Present judgement normal Results Laboratory Result Diagram: 11/10/19 1330 11/10/19 1330 Laboratory Laboratory Tests Test 11/10/19 13:30 White Blood Count 6.98 x10e3/uL (4.8-10.8) Red Blood Count 3.77 x10e6/uL (4.3-5.7) Hemoglobin 11.4 g/dL (14.0-18.0) Hematocrit 35.2 % (38.2-49.6) Mean Corpuscular Volume 93.4 fL (81-99) Mean Corpuscular Hemoglobin 30.2 pg (28-32) Mean Corpuscular Hemoglobin Concent 32.4 g/dL (31-35) Red Cell Distribution Width 13.9 % (11.7-14.4) Platelet Count 227 x10e3/uL (140-360) Neutrophils (%) (Auto) 72.9 % (38.7-80.0) Lymphocytes (%) (Auto) 15.5 % (18.0-39.1) Monocytes (%) (Auto) 7.4 % (4.4-11.3) Eosinophils (%) (Auto) 2.9 % (0.0-6.0) Basophils (%) (Auto) 0.9 % (0.0-1.0) Neutrophils # (Auto) 5.1 (2.1-6.9) Lymphocytes # (Auto) 1.1 (1.0-3.2) Monocytes # (Auto) 0.5 (0.2-0.8) Eosinophils # (Auto) 0.2 (0.0-0.4) Basophils # (Auto) 0.1 (0.0-0.1) Absolute Immature Granulocyte (auto 0.03 x10e3/uL (0-0.1) Prothrombin Time 12.9 seconds (11.9-14.5) Prothromb Time International Ratio 0.93 Activated Partial Thromboplast Time 31.2 seconds (23.8-35.5) Sodium Level 135 mmol/L (136-145) Potassium Level 5.8 mmol/L (3.5-5.1) Chloride Level 108 mmol/L (98-107) Carbon Dioxide Level 19 mmol/L (22-29) Anion Gap 13.8 mmol/L (8-16) Blood Urea Nitrogen 44 mg/dL (7-26) Creatinine 2.49 mg/dL (0.72-1.25) Estimat Glomerular Filtration Rate 25 ML/MIN (60-) BUN/Creatinine Ratio 18 (6-25) Glucose Level 232 mg/dL (74-118) Calcium Level 7.7 mg/dL (8.4-10.2) Total Bilirubin 0.4 mg/dL (0.2-1.2) Aspartate Amino Transf (AST/SGOT) 11 IU/L (5-34) Alanine Aminotransferase (ALT/SGPT) 12 IU/L (0-55) Alkaline Phosphatase 107 IU/L (40-150) Creatine Kinase 56 IU/L (30-200) Creatine Kinase MB 3.40 ng/mL (0-5.0) Troponin I 0.014 ng/mL (0-0.300) Total Protein 6.2 g/dL (6.5-8.1) Albumin 3.7 g/dL (3.5-5.0) Globulin 2.5 g/dL (2.3-3.5) Albumin/Globulin Ratio 1.5 (0.8-2.0) Lab results reviewed: Yes Imaging Imaging results reviewed: Yes Procedures 12 Lead ECG Interpretation ECG Interpretation : ECG: ECG 1 Business Law Professor: Interpreted by ED physician Date: Nov 10, 2019 Time: 13:25 Rhythm: sinus rhythm Rate: normal BPM: 73 QRS axis: normal ST segments normal: Yes T waves normal: Yes Clinical Impression: normal ECG Assessment & Plan Medical Decision Making MDM LIKELY LEFT HIP FX S/P FALL, ALSO C/O KNEE/FEMUR PAIN - CBC, CHEM, PT/PTT, ECG, CXR, CT BRAIN/C-SPINE, XRAYS OF HIP/FEMUR/KNEE ON LEFT - EVAL FOR HIP/PELVIS FX, KNEE/FEMUR FX, CEREBRAL BLEED, CERV FX, ANEMIA, RENAL INSUFF, ELECTROLYTE ABNL Reassessment Reassessment ADMIT TO DR BOB, ALSO SPOKE WITH DR ANDRADE WHO FIX RIGHT HIP ~1 YR AGO Assessment & Plan Final Impression: (1) Intertrochanteric fracture of left femur (2) Acute renal insufficiency Depart Disposition: ADMITTED Last Vital Signs Date Time Temp Pulse Resp B/P (MAP) Pulse Ox O2 Delivery O2 Flow Rate FiO2 11/10/19 13:37 98.4 84 16 195/78 100 Room Air Home Meds Active Scripts Nifedipine (NIFEDIPINE ER) 30 Mg Tab.er.24, 30 MG PO DAILY for 30 Days, #30 Prov:HERBERT PÉREZ PEOPLESOFT DEVELOPER 10/14/18 Acetaminophen/Codeine* (TYLENOL # 3*) 1 Ea Tab, 1 EA PO Q6H PRN for MODERATE PAIN (4-6) for 10 Days, #20 TAB Prov:HERBERT PÉREZ [employer]OPLESOFT DEVELOPER 10/14/18 Reported Medications Sodium Polystyrene Sulfonate (KAYEXALATE) 453.6 Gm Powder, PO 07/11/16 Insulin Glargine (LANTUS 3ML PEN) 100 Units/1 Ml Inj, 26 SQ HS 07/11/16 Pravastatin Sodium (PRAVASTATIN SODIUM) 20 Mg Tablet, 1 PO HS 07/11/16 Lisinopril (LISINOPRIL) 10 Mg Tablet, 40 MG PO DAILY, #30 TAB 07/11/16 Glipizide/Metformin Hcl (GLIPIZIDE-METFORMIN 5-500 MG) 1 Each Tablet, PO BIDAC 07/11/16 Aspirin (ASPIR 81) 81 Mg Tablet., DAILY 07/11/16 Medications in the ED Morphine Sulfate 4 mg ONCE STAT IV Last administered on 11/10/19at 14:35; Admin Dose 4 MG; Start 11/10/19 at 13:34; Stop 11/10/19 at 13:46; Status DC Ondansetron HCl 4 mg ONCE STAT IV Last administered on 11/10/19at 14:35; Admin Dose 4 MG; Start 11/10/19 at 13:34; Stop 11/10/19 at 13:47; Status DC Sodium Chloride 1,000 ml @ 0 mls/hr Q0M STAT IV ; Start 11/10/19 at 13:34; Stop 11/10/19 at 13:42; Status DC Sodium Chloride 1,000 ml @ STK-MED ONCE .ROUTE ; Start 11/10/19 at 15:49; Stop 11/10/19 at 15:42; Status DC Ondansetron HCl 4 mg Q4H PRN IV NAUSEA AND VOMITING; Start 11/10/19 at 16:00; Stop 12/10/19 at 15:59; Status UNV Sodium Chloride 1,000 ml @ 100 mls/hr Q10H IV ; Start 11/10/19 at 16:00; Stop 11/11/19 at 11:59; Status UNV Morphine Sulfate 4 mg Q4H PRN IV SEVERE PAIN (7-10); Start 11/10/19 at 16:00; Stop 11/17/19 at 15:59; Status UNV JANAY CARD MD Nov 10, 2019 16:01
[2019-11-10] MEDS ORDERED: HYDROMORPHONE 1MG/1ML INJ IV STA (16:13)
[2019-11-10] MEDS ORDERED: HYDROMORPHONE 1MG/1ML INJ ONE (16:22)
[2019-11-10 16:33] LABS: BILIRUBIN,URINE NEGATIVE (NEGATIVE); CLARITY,URINE HAZY (CLEAR); COLOR,URINE YELLOW (YELLOW); KETONES,URINE TRACE (NEGATIVE); LEUKOCYTE ESTERASE ,URINE NEGATIVE (NEGATIVE); NITRITE,URINE NEGATIVE (NEGATIVE); PROTEIN,URINE DIPSTICK >=300 (NEGATIVE); URINE UROBILINOGEN 0.2 mg/dL (0.2 - 1)
[2019-11-10 16:47] LABS: AMORPHOUS SEDIMENT,URINE MANY (FEW); BACTERIA,URINE MODERATE /HPF; RBC,URINE 0-5 /HPF (0-5)
[2019-11-10 20:00] VITALS: BP 134/110
[2019-11-10] MEDS: MORPHINE SULFATE INJ 4 MG/ML INJ 1ML IV PRN (20:05)
[2019-11-10] MEDS: ONDANSETRON HCL INJ 2MG/ML 2ML 2 MG/ML VIAL IV PRN (20:05)
--- NOTE | 2019-11-10 20:05 | NUR ---
Pt alert, awake, and oriented x 3. Complaints of left hip pain at a level of 8/10. Morphine given as ordered for pain. Home medications verified with pt's , Rony. Thomas's traction and AJ orozco initiated per MD orders. No other needs at this time. Will continue to monitor pt.
[2019-11-10] MEDS ORDERED: SOD POLYSTYRENE SULFONATE SUSP 15 GM/60 ML BTL PO ONE ×2 (20:30→23:00)
[2019-11-10] MEDS ORDERED: HYDRALAZINE HCL 20 MG/ML VIAL IV PRN (20:30)
[2019-11-10 20:52] VITALS: BP 134/110
[2019-11-10] MEDS ORDERED: CRESTOR10 MG PO (20:57)
[2019-11-10] MEDS ORDERED: NOVOLOG100 UNIT/1 SC (20:57)
[2019-11-10] MEDS ORDERED: GLIPIZIDE5 MG PO (20:57)
[2019-11-10] MEDS ORDERED: BASAGLAR K100 UNIT/1 (20:57)
[2019-11-10] MEDS ORDERED: PRAVASTATIN 20 MG TAB PO SCH (21:00)
[2019-11-10] MEDS: INSULIN LISPRO 100 UNIT/1 ML 3ML VIAL SQ SCH (21:44)
--- NOTE | 2019-11-10 22:15 | NUR ---
Pt transferred to surgical unit room 104. Pt alert and awake. Report given to RL Hughes prior to the transfer. Care transferred.
--- NOTE | 2019-11-10 22:46 | NUR ---
Notified Dr. Gonzales of patient critical K+ 6.2. New orders received to give Kayexalate 30g now and redraw BMP at 3am. Medication given to patient po. Will cont to monitor.
--- NOTE | 2019-11-10 23:15 | History and Physical ---
PRIMARY CARE DOCTOR: Dr. Maverick Parada. CHIEF COMPLAINT: Fall. HISTORY OF PRESENT ILLNESS: This is a 74-year-old male, who tripped over a shoe and fell onto his left side. The patient presented with left hip pain. Unfortunately, in the emergency room, the patient was found to have a left hip fracture. The patient was in his usual state of health until he fell. Denies any syncope. No chest pain. No shortness of breath. No nausea or vomiting. Interestingly, around the same time, not sure if the patient suffered a right hip fracture from that mechanical fall. PAST MEDICAL AND SURGICAL HISTORY: 1. Stage 3 chronic kidney disease. 2. Hypertension. 3. Diabetes. 4. Hyperlipidemia. 5. Previous right hip surgery. MEDICATIONS: Please see medication reconciliation form. ALLERGIES: NONE. SOCIAL HISTORY: Still smoking since age 13. FAMILY HISTORY: High blood pressure. REVIEW OF SYSTEMS: A 10-point review of systems obtained, nothing else is significant other than what is stated in HPI. PHYSICAL EXAMINATION: VITAL SIGNS: Temperature 98.4, pulse 72, respiratory rate 16, and blood pressure 116/84. GENERAL: No acute distress. SKIN: No rash. HEENT: Anicteric. Oropharynx is clear. LUNGS: Clear. HEART: Regular rate and rhythm. Normal S1 and S2. GI: Abdomen is soft and nondistended. MUSCULOSKELETAL: Decreased range of motion of the left hip. NEUROLOGIC: Alert and oriented x3. Cranial nerves 2 through 12 grossly intact. PSYCHIATRIC: No hallucination. LABORATORY DATA: White count 7, hemoglobin 11, and platelet count 227. Potassium 5.8, creatinine 2.5, and sugar 233. ASSESSMENT AND PLAN: 1. Left hip fracture. Orthopedics has been consulted. He will likely need another open reduction and internal fixation. For now, IV morphine p.r.n. for pain control. 2. Mild hyperkalemia. We will give a dose of Kayexalate. We will repeat his potassium later tonight. 3. Diabetes with hyperglycemia. We will monitor. We will start him on a sliding scale for now. 4. Stage 3 chronic kidney disease, potentially a mild component of acute renal failure. We will start gentle IV hydration and then, we will repeat his creatinine. 5. Possible abnormal chest x-ray. We will repeat. 6. Hypertension crisis, likely partially due to pain from the fracture. We will use IV hydralazine as needed. Also, restart his home nifedipine. 7. Gastrointestinal and deep venous thrombosis prophylaxis. No chemical deep venous thrombosis prophylaxis due to likely of surgery. MD JOSEP Bernard/ABBY /[id number] cc: [facility]
[2019-11-11] VITALS (8 sets, daily range): BP systolic 112–188; BP diastolic 48–104
[2019-11-11] MEDS ORDERED: SODIUM CHLORIDE 0.45% 1,000 ML IV SCH
[2019-11-11 03:27] LABS: ANION GAP 14.6 mmol/L (8-16); CALCIUM 7.6 mg/dL (8.4-10.2); CREATININE, SERUM 2.44 mg/dL (0.72-1.25); POTASSIUM 5.6 mmol/L (3.5-5.1)
[2019-11-11 05:05] LABS: BASOPHILS % 0.5 % (0.0-1.0); EOSINOPHILS # (AUTO) 0.1 (0.0-0.4); EOSINOPHILS % 1.5 % (0.0-6.0); HEMATOCRIT 30.3 % (38.2-49.6); HEMOGLOBIN 9.9 g/dL (14.0-18.0); LYMPHOCYTES # (AUTO) 0.7 (1.0-3.2); LYMPHOCYTES % 9.3 % (18.0-39.1); MEAN CORPUSCULAR HEMOGLOBIN 31.3 pg (28-32); MEAN CORPUSCULAR HGB CONC 32.7 g/dL (31-35); MEAN CORPUSCULAR VOLUME 95.9 fL (81-99); MONOCYTES % 13.2 % (4.4-11.3); NEUTROPHILS # (AUTO) 5.9 (2.1-6.9); NEUTROPHILS % 75.1 % (38.7-80.0); PLATELET COUNT 170 x10e3/uL (140-360); RED BLOOD COUNT 3.16 x10e6/uL (4.3-5.7); RED CELL DISTRIBUTION WIDTH 13.9 % (11.7-14.4)
[2019-11-11 05:22] LABS: ALBUMIN 3.3 g/dL (3.5-5.0); ALBUMIN/GLOBULIN RATIO 1.6 (0.8-2.0); ANION GAP 15.3 mmol/L (8-16); CALCIUM 7.5 mg/dL (8.4-10.2); CREATININE, SERUM 2.36 mg/dL (0.72-1.25); POTASSIUM 5.3 mmol/L (3.5-5.1)
[2019-11-11] MEDS: ONDANSETRON HCL INJ 2MG/ML 2ML 2 MG/ML VIAL IV PRN (05:46)
[2019-11-11] MEDS: MORPHINE SULFATE INJ 4 MG/ML INJ 1ML IV PRN ×3 (05:46→20:16)
[2019-11-11] MEDS: INSULIN LISPRO 100 UNIT/1 ML 3ML VIAL SQ SCH ×4 (07:30→20:17)
[2019-11-11] MEDS ORDERED: SODIUM BICARBONATE 8.4% 75 ML in SODIUM CHLORIDE 0.45% 1,000 ML IV ONE (07:45)
[2019-11-11] MEDS ORDERED: DEXTROSE 50% SYRINGE 50 ML IV ONE ×2 (08:22→15:29)
[2019-11-11] MEDS ORDERED: INSULIN REGULAR, HUMAN 100 UNIT/1 ML 3ML VIAL SQ ONE (08:30)
[2019-11-11] MEDS ORDERED: NIFEDIPINE CR 30 MG TAB PO SCH (09:00)
--- NOTE | 2019-11-11 09:30 | Diagnostic Imaging Report ---
EXAM: Renal Ultrasound INDICATION: Acute renal failure. ^arf ^[id number] ^[id number] COMPARISON: None TECHNIQUE: Transverse and longitudinal images of the kidneys and bladder were obtained. FINDINGS: Right Kidney: Length: 10.7 x 5.1 x 4.8 cm Appearance: Normal echogenicity. Collecting system: No hydronephrosis Stones: None Cyst/Mass: None Left Kidney: Length: 9.8 x 5.1 x 5.2 cm Appearance: Normal echogenicity. Collecting system: No hydronephrosis Stones: None Cyst/Mass: None Bladder: Jorgensen catheter IMPRESSION: Normal renal ultrasound exam. Signed by: Dr. Sundar Plascencia M.D. on 11/11/2019 9:27 AM
--- NOTE | 2019-11-11 09:41 | Diagnostic Imaging Report ---
EXAMINATION: CHEST SINGLE (PORTABLE) INDICATION: Abnormal prior chest x-ray COMPARISON: Chest radiograph 11/10/2019 FINDINGS: LINES/TUBES:EKG leads overlie the chest. LUNGS:The lungs are well-inflated. Left lower lung subsegmental atelectasis. No focal consolidation or airspace edema. PLEURA:No pleural effusion or pneumothorax. MEDIASTINUM:The cardiomediastinal silhouette appears unchanged in size and shape. BONES/SOFT TISSUES:No acute osseous injury. ABDOMEN:No free air under the diaphragm. IMPRESSION: Left lower lung subsegmental atelectasis. No focal pneumonia or pulmonary edema. Signed by: Ashlee Lewis MD on 11/11/2019 9:37 AM
[2019-11-11] MEDS ORDERED: RIVAROXABAN 10 MG TABLET PO ONE (10:00)
[2019-11-11] MEDS: SODIUM BICARBONATE 650 MG TAB PO SCH ×2 (11:06→16:47)
[2019-11-11] MEDS: ERGOCALCIFEROL 50,000 UNIT CAP PO SCH (11:06)
[2019-11-11] MEDS: CEFTRIAXONE SOD 1 GM/NS 50 ML 50 ML IV SCH (11:06)
--- NOTE | 2019-11-11 13:39 | Consultation ---
DATE OF CONSULTATION: 11/11/2019 REQUESTING PHYSICIAN: Dr. Gonzales. REASON FOR CONSULTATION: Acute kidney injury. Thank you for allowing us to participate in Mr. Verduzco's care. HISTORY OF PRESENT ILLNESS: This is a 74-year-old male came with left intertrochanteric fracture. Baseline creatinine around 1.5 _. He has a history of diabetes, which in the past has been difficult to control. Also maintained on lisinopril appropriately, however, when he came here it was found that his serum creatinine was up to 2.5. 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 He did have some moderate bacteria and a urine culture is pending. He is awaiting surgery for his left hip. His potassium is coming down. PAST MEDICAL HISTORY: 1. CKD stage 3. 2. 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 3. Chronic BRENDAN inhibitor use, which was appropriate in the situation. 4. Not clear if he has any benign prostatic hyperplasia. FAMILY HISTORY: Hypertension. SOCIAL HISTORY: History of smoking. REVIEW OF SYSTEMS: CONSTITUTIONAL: No fever or chills. : He denies any trouble urinating or nocturia. CARDIAC: Denying angina or syncope. MUSCULOSKELETAL: Left hip pain. NEUROLOGIC: Denying headaches or seizures. Rest of review is negative. PHYSICAL EXAMINATION: GENERAL: Lying in bed, in no distress. VITAL SIGNS: Temperature is 98.4, pulse is 95, breath sounds regular, blood pressure 121/69. HEENT: Grossly atraumatic. NECK: Unable to see any distended neck veins. CHEST: Clear. Bilateral breath sounds equal. CARDIAC: Normal heart tones, it sounds regular at this time. EXTREMITIES: No definite edema. ABDOMEN: Benign. I am unable to feel the bladder. : Jorgensen catheter in place. LABORATORY DATA: Labs are reviewed above. UA showing proteinuria and few ketones. Sugars were 232 at admission, creatinine is down to 2.36, BUN is 43, serum CO2 of 17, potassium of 5.3, calcium is somewhat low at 7.5, albumin is 3.3 which is not unreasonable. ASSESSMENT: 1. Acute kidney injury partly from hemodynamics. His hemoglobin is actually down 9.9 suggesting that he may have been hemoconcentrated earlier with some blood loss from the fracture, although that needs to be confirmed, decreased volume status which is now improving on IV fluids, side effects of BRENDAN inhibitors, which do tend to drop the GFR more so than normal particularly in this situation where he may have been angiotensin dependent. consider atn, no clear cut obstruction on u/s 2. Metabolic acidosis as noted above. 3. Hyperkalemia from decreased renal tubular flow as well as BRENDAN inhibitor use. 4. Hypertension, which is now more reasonable although earlier had been quite high. 5. Proteinuria from chronic diabetic end-organ damage. PLAN: 1. Change IV fluids to half NS with bicarbonate. 2. Give one dose of insulin dextrose IV. 3. Avoid succinylcholine and other preparations during anesthesia, which might cause hyperkalemia. 4. Avoid NSAIDs. 5. Keep Jorgensen in place. 6. Recheck potassium. 7. Add sodium bicarbonate 1300mg b.i.d. 8. Agree with stopping his lisinopril for the time being. 9. We will follow along with you. MD AMRITA ElizondoK/JOSUEL /[id number]
[2019-11-11] MEDS ORDERED: DEXTROSE 50% SYRINGE 50 ML IV STA (15:29)
--- NOTE | 2019-11-11 15:29 | NUR ---
Notified Dr. Gonzales of patient confusion and low blood sugar level of 39. Dr. Gonzales ordered one amp of Dextrose 50%. Patient blood sugar at 189. Patient arousable. Will closely monitor and recheck blood sugar level.
[2019-11-11] MEDS: TAMSULOSIN HCL 0.4 MG CAP PO SCH (21:00)
[2019-11-11] MEDS: CRESTOR 10MG PO SCH (21:00)
--- NOTE | 2019-11-11 22:07 | Progress Note ---
DATE: 11/11/2019 SUBJECTIVE: Left hip pain. OBJECTIVE: VITAL SIGNS: Temperature 98.4, pulse 81, respiratory rate 20, and blood pressure 118/48. GENERAL: No acute distress. SKIN: No rash. LUNGS: Clear. HEART: Regular and rhythm. Normal S1 and S2. GI: Abdomen is soft and nondistended. NEUROLOGIC: Alert and oriented x3. PSYCHIATRIC: No hallucination. LABORATORY DATA: White count 7.8, hemoglobin 10, and platelet count 170. Potassium 5.3, repeat is 4.5, and creatinine is 2.36. COVID-19 is negative. ASSESSMENT AND PLAN: 1. Left hip fracture. I have discussed this case with Dr. Carrillo, Orthopedic. Given bacteria and the urine and hyperkalemia, we will plan for surgery on Sunday. 2. Mild hyperkalemia, resolved. 3. Stage 3 chronic kidney disease. Plan per Nephrology. 4. Diabetes. We will continue sliding scale. 5. Bacteriuria. We will start IV Rocephin and wait for urine culture. 6. Hypertension. Blood pressure is better. We will continue IV hydralazine as needed. 7. Gastrointestinal and deep venous thrombosis prophylaxis, Xarelto x2 doses per Orthopedic. Rebeccaching MD JOSEP Osman/ABBY /[id number]
[2019-11-12] VITALS (9 sets, daily range): BP systolic 115–152; BP diastolic 52–88
[2019-11-12 04:55] LABS: BASOPHILS % 0.2 % (0.0-1.0); EOSINOPHILS # (AUTO) 0.1 (0.0-0.4); EOSINOPHILS % 1.1 % (0.0-6.0); HEMATOCRIT 29.3 % (38.2-49.6); HEMOGLOBIN 9.3 g/dL (14.0-18.0); LYMPHOCYTES # (AUTO) 0.7 (1.0-3.2); LYMPHOCYTES % 6.8 % (18.0-39.1); MEAN CORPUSCULAR HGB CONC 31.7 g/dL (31-35); MEAN CORPUSCULAR VOLUME 94.5 fL (81-99); MONOCYTES # (AUTO) 1.2 (0.2-0.8); MONOCYTES % 12.8 % (4.4-11.3); NEUTROPHILS # (AUTO) 7.5 (2.1-6.9); NEUTROPHILS % 78.5 % (38.7-80.0); PLATELET COUNT 163 x10e3/uL (140-360)
[2019-11-12 05:29] LABS: ANION GAP 13.8 mmol/L (8-16); CALCIUM 7.4 mg/dL (8.4-10.2); CREATININE, SERUM 2.72 mg/dL (0.72-1.25); MAGNESIUM 1.9 MG/DL (1.3-2.1); PHOSPHORUS 3.8 MG/DL (2.3-4.7); POTASSIUM 4.8 mmol/L (3.5-5.1)
[2019-11-12 05:30] LABS: FERRITIN 101.99 ng/mL (21.81-274.66)
[2019-11-12] MEDS: INSULIN LISPRO 100 UNIT/1 ML 3ML VIAL SQ SCH ×4 (07:30→21:00)
--- NOTE | 2019-11-12 07:45 | NUR ---
patient endorsed to next shift for continuity of care. patient had intermittent confusions, patient removed iv, and was placed back, patient reoriented to his environment and he is stable at this time
[2019-11-12] MEDS: CEFTRIAXONE SOD 1 GM/NS 50 ML 50 ML IV SCH (09:27)
[2019-11-12] MEDS: SODIUM BICARBONATE 650 MG TAB PO SCH ×2 (09:57→17:10)
[2019-11-12] MEDS ORDERED: RIVAROXABAN 10 MG TABLET PO ONE (10:00)
[2019-11-12] MEDS: IRON SUCROSE 100 MG in SODIUM CHLORIDE 0.9% 100 ML 100 ML IV SCH (12:32)
[2019-11-12] MEDS ORDERED: SODIUM CHLORIDE 0.9% 250ML 250 ML ONE (15:22)
--- NOTE | 2019-11-12 15:22 | NUR ---
Nutrition Screen Note RD Recommendation for Physician: -Continue ADA diet -If PO intake is <50% of meals offer Glucerna nutrition supplement Plan of Care: RD following, monitoring for tolerance and adequacy Nutrition reason for involvement: Nutrition Risk Trigger Primary Diagnose(s): acute renal insufficiency, intertrochanteric fracture of left femur PMH: Stage 3 chronic kidney disease, Hypertension, Diabetes, Hyperlipidemia, Previous right hip surgery. Ht: 76 in Wt: 180 lb BMI: 21.9 kg/m2 IBW:[address] Assessment: (11/11) Chart reviewed. Labs and meds reviewed. Pt is a 74 year old male admitted with acute renal insufficiency and intertrochanteric fracture of left femur. Attempted to call pt over the phone, but pt did not answer. Per nursing note this morning, pt has intermittent confusion. There are no reports of decreased appetite prior to admission, but pt reported unsure weight loss. Pt was previously NPO and was started on an ADA diet this morning. Per weight history, pt weighed 180-192 lbs in 2018 and currently weighs 180 lbs; therefore, no significant weight loss appears evident. Will continue to monitor Current Diet: 1800 ADA Malnutrition Evaluation (11/12/19) The patient does not meet criteria for a specified degree of malnutrition at this time. Will re-evaluate at follow-up as appropriate. Diet Education Needs Assessment: RD is available for diet education as needed Nutrition Care Level: low Signed: Stephanie Mendes, RD, LD
--- NOTE | 2019-11-12 19:24 | Progress Note ---
DATE: 11/12/2019 SUBJECTIVE: Still with left hip pain. OBJECTIVE: GENERAL: Temperature 98.7, pulse 88, respiratory rate 18, and blood pressure 143/88. GENERAL: No acute distress. SKIN: No rash. LUNGS: Clear. HEART: Regular rate and rhythm. Normal S1 and S2. GI: Abdomen is soft and nondistended. NEUROLOGIC: Alert and oriented x3. PSYCHIATRIC: No hallucination. LABORATORY DATA: White count 9.5, hemoglobin 9.3, and platelet count 163. Creatinine is 2.72. Iron saturation is 9%. ASSESSMENT AND PLAN: 1. Left hip fracture. Plan for open reduction and internal fixation tomorrow. 2. Acute kidney injury on top of stage 3 chronic kidney disease. Plan per Nephrology. 3. Hyponatremia, resolved. 4. Iron deficiency anemia. We will start iron infusion. 5. Diabetes. We will continue sliding scale. 6. Urine culture negative bacteriuria. We will continue IV Rocephin. 7. Hypertension. We will continue IV hydralazine as needed. 8. Gastrointestinal and deep venous thrombosis prophylaxis. The patient received 2 doses of Xarelto. Currently, no more chemical deep venous thrombosis prophylaxis in preparation for surgery tomorrow. We will continue to monitor his hemoglobin. MD JOSEP Bernard/ABBY /[id number]
[2019-11-12] MEDS ORDERED: TEMAZEPAM 7.5 MG CAP PO ONE (21:50)
[2019-11-12] MEDS: TAMSULOSIN HCL 0.4 MG CAP PO SCH (21:52)
[2019-11-12] MEDS: CRESTOR 10MG PO SCH (21:52)
[2019-11-13] VITALS (8 sets, daily range): BP systolic 148–186; BP diastolic 57–70
[2019-11-13] MEDS: SODIUM CHLORIDE 0.45% 1,000 ML IV SCH ×2 (02:12→11:20)
[2019-11-13 05:11] LABS: BASOPHILS % 0.5 % (0.0-1.0); EOSINOPHILS # (AUTO) 0.2 (0.0-0.4); HEMATOCRIT 27.5 % (38.2-49.6); HEMOGLOBIN 8.8 g/dL (14.0-18.0); LYMPHOCYTES # (AUTO) 0.6 (1.0-3.2); MEAN CORPUSCULAR HEMOGLOBIN 30.7 pg (28-32); MEAN CORPUSCULAR VOLUME 95.8 fL (81-99); MONOCYTES % 12.3 % (4.4-11.3); NEUTROPHILS # (AUTO) 6.1 (2.1-6.9); NEUTROPHILS % 76.7 % (38.7-80.0); PLATELET COUNT 154 x10e3/uL (140-360); RED BLOOD COUNT 2.87 x10e6/uL (4.3-5.7); RED CELL DISTRIBUTION WIDTH 13.4 % (11.7-14.4)
[2019-11-13 05:37] LABS: ANION GAP 17.5 mmol/L (8-16); CALCIUM 7.4 mg/dL (8.4-10.2); CREATININE, SERUM 2.67 mg/dL (0.72-1.25); POTASSIUM 4.5 mmol/L (3.5-5.1)
--- NOTE | 2019-11-13 07:21 | NUR ---
patient endorsed to next shift for continuity of care.
[2019-11-13] MEDS: INSULIN LISPRO 100 UNIT/1 ML 3ML VIAL SQ SCH ×4 (07:30→21:00)
[2019-11-13] MEDS: SODIUM BICARBONATE 650 MG TAB PO SCH ×2 (07:56→17:25)
[2019-11-13] MEDS ORDERED: CEFAZOLIN SOD 1 GM VIAL IV SCH (09:00)
[2019-11-13] MEDS: CEFTRIAXONE SOD 1 GM/NS 50 ML 50 ML IV SCH (09:09)
[2019-11-13] MEDS: IRON SUCROSE 100 MG in SODIUM CHLORIDE 0.9% 100 ML 100 ML IV SCH (11:20)
[2019-11-13] MEDS ORDERED: NALOXONE HCL INJ 0.4 MG/ML AMP IV PRN (13:30)
[2019-11-13] MEDS ORDERED: HYDROMORPHONE 0.2MG/ML-SOD CHL 30ML PCA SYRINGE IV PRN (13:30)
[2019-11-13] MEDS ORDERED: ACETAMINOPHEN 1000 MG/100 ML IV PRN (13:30)
[2019-11-13] MEDS ORDERED: ONDANSETRON HCL INJ 2MG/ML 2ML 2 MG/ML VIAL IV PRN (13:30)
[2019-11-13] MEDS ORDERED: MIDAZOLAM HCL 2 MG/2 ML VIAL ONE (13:38)
[2019-11-13] MEDS ORDERED: FENTANYL CITRATE/PF 100MCG/2 ML INJ ONE (13:38)
[2019-11-13] MEDS ORDERED: HYDROMORPHONE 0.2MG/ML-SOD CHL 30ML PCA SYRINGE IV ONE (14:09)
--- NOTE | 2019-11-13 14:30 | Diagnostic Imaging Report ---
Left hip, 2 views INDICATION: ^POST OP ^Y Comparison: 11/10/2019. Discussion: Postoperative changes from open reduction and internal fixation of the left femoral neck and proximal femoral shaft are noted with a short intramedullary femoral fixation lucas and a femoral neck fixation partially threaded screw. Transverse fixation screw is identified within the proximal third of the femoral shaft. Hardware appears to be in proper alignment and intact. There are stable postsurgical changes of the right femoral neck with 3 partially threaded fixation screws. Pubic symphysis is not widened. Sacrum is obscured by overlying bowel gas. IMPRESSION: Postoperative changes from left hip open reduction and internal fixation. There appears to be anatomic alignment without evidence of hardware malfunction. Signed by: Abbe Montiel MD on 11/13/2019 2:27 PM
[2019-11-13] MEDS: SODIUM CHLORIDE 0.9% 1000ML 1,000 ML IV SCH (14:57)
[2019-11-13] MEDS: CEFAZOLIN SOD 1 GM/NS 50ML 50 ML IV SCH ×2 (15:19→22:00)
[2019-11-13] MEDS ORDERED: EPHEDRINE SULFATE INJ 50 MG/ML VIAL ONE (17:48)
[2019-11-13] MEDS ORDERED: LIDOCAINE HCL 2% LOCAL INJ 5 ML SDV VIAL INJ ONE (17:48)
[2019-11-13] MEDS ORDERED: ONDANSETRON HCL INJ 2MG/ML 2ML 2 MG/ML VIAL ONE (17:48)
[2019-11-13] MEDS ORDERED: SEVOFLURANE INHAL SOLN 250 ML PEN BTL ONE (17:48)
[2019-11-13] MEDS ORDERED: PROPOFOL IV EMULSION 10 MG/ML 20 ML VIAL ONE (17:48)
[2019-11-13] MEDS ORDERED: DEXAMETHASONE SOD PHOS INJ 4 MG/ML VIAL ONE (17:48)
--- NOTE | 2019-11-13 20:03 | Progress Note ---
DATE: 11/13/2019 SUBJECTIVE: Seen in the recovery room. No hip pain. OBJECTIVE: VITAL SIGNS: Temperature 97.7, pulse 84, respiratory rate 16, and blood pressure 159/57. GENERAL: No acute distress. SKIN: No rash. LUNGS: Clear. HEART: Regular rate and rhythm. Normal S1, S2. GI: Abdomen is soft, nondistended. NEUROLOGIC: Alert and oriented x3. PSYCHIATRIC: No hallucination. LABORATORY DATA: White count 8, hemoglobin 8.8, and platelet count 154. Creatinine 2.67. ASSESSMENT AND PLAN: 1. Left hip fracture. Postoperative day #0, open reduction and internal fixation. We will monitor his hemoglobin. We will start physical therapy evaluation in the morning. 2. Mild acute kidney injury on top of stage 2 chronic kidney disease. Plan per Nephrology. 3. Hyponatremia, resolved. 4. Iron deficiency. We will continue iron infusion. 5. Diabetes. We will continue sliding scale. 6. Hypertension. He will likely need an oral agent. We will discuss with Nephrology. For now, continue IV hydralazine as needed. 7. Gastrointestinal and deep venous thrombosis prophylaxis. Chemical deep venous thrombosis prophylaxis per orthopedics. Yiching MD JOSEP Osman/ABBY /[id number]
[2019-11-13] MEDS: TAMSULOSIN HCL 0.4 MG CAP PO SCH (20:42)
[2019-11-13] MEDS: CRESTOR 10MG PO SCH (20:42)
[2019-11-14] VITALS (8 sets, daily range): BP systolic 131–197; BP diastolic 51–76
[2019-11-14] MEDS: SODIUM CHLORIDE 0.9% 1000ML 1,000 ML IV SCH ×2 (03:21→16:21)
[2019-11-14 05:07] LABS: HEMATOCRIT 24.7 % (38.2-49.6); HEMOGLOBIN 8.2 g/dL (14.0-18.0)
[2019-11-14] MEDS: CEFAZOLIN SOD 1 GM/NS 50ML 50 ML IV SCH (05:55)
[2019-11-14] MEDS: INSULIN LISPRO 100 UNIT/1 ML 3ML VIAL SQ SCH ×4 (09:00→21:00)
[2019-11-14] MEDS: RIVAROXABAN 10 MG TABLET PO SCH (10:00)
[2019-11-14] MEDS: SODIUM BICARBONATE 650 MG TAB PO SCH ×2 (10:00→16:21)
[2019-11-14] MEDS: NIFEDIPINE CR 30 MG TAB PO SCH (10:05)
[2019-11-14] MEDS: CEFTRIAXONE SOD 1 GM/NS 50 ML 50 ML IV SCH (10:07)
--- NOTE | 2019-11-14 14:31 | NUR ---
ORDERS FOR SNF TANIYAAL SPOKE WITH PT AND REGARDING CHOICE ANTHONY [facility]BBER SHIRASUMA IS NOT IN NETWORK WITH [facility] SECOND CHOICE IS [facility] SHARON DONNELLY SPOKE WITH PAOLA AT [facility] WHO STATES THEY CANNOT ACCEPT ANYMORE ADMISSIONS DUE TO A COVID BREAKOUT IN THEIR FACILITY PER ADMINISTRATION EXPLAINED TO PT AND AND THEY CHOSE RAKEL SHIRASUMA TASHA DUNBAR CALLED AND SPOKE WITH [facility] [phone]; CLINICALS FAXED TO [phone], CONFIRMATION REC'D CONFIRMED THAT SHE REC'D CLINICALS WILL TRANSFER WHEN AUTH REC'D
[2019-11-14] MEDS: IRON SUCROSE 100 MG in SODIUM CHLORIDE 0.9% 100 ML 100 ML IV SCH (14:44)
[2019-11-14] MEDS: CRESTOR 10MG PO SCH (21:25)
[2019-11-14] MEDS: TAMSULOSIN HCL 0.4 MG CAP PO SCH (21:25)
--- NOTE | 2019-11-14 22:31 | Progress Note ---
DATE: 11/14/2019 SUBJECTIVE: Able to ambulate to the hallway earlier with the physical therapist. Denies any dizziness nor lightheadedness. OBJECTIVE: VITAL SIGNS: Temperature 98.0, pulse 81, respiratory rate 20, blood pressure 144/51. GENERAL: No acute distress. SKIN: No rash. LUNGS: Clear. HEART: Regular rate and rhythm. Normal S1 and S2. GI: Abdomen is soft, nondistended. NEUROLOGIC: Alert and oriented x3. PSYCHIATRIC: No hallucinations. LABORATORY DATA: Hemoglobin 8.2. ASSESSMENT AND PLAN: 1. Left hip fracture, postop day #1 open reduction and internal fixation. We will continue to monitor his hemoglobin, which dropped a little bit. We will continue physical therapy. We will also discontinue his Dilaudid DEVELOPMENT INTERN pump. 2. Mild acute kidney injury on top of stage 2 chronic kidney disease per Nephrology. 3. Iron-deficiency anemia. We will continue iron infusion. 4. Uncontrolled hypertension. We will start nifedipine. 5. Diabetes. We will continue sliding scale. 6. Gastrointestinal/deep venous thrombosis prophylaxis, Xarelto. MD JOSEP Bernard/ABBY /[id number]
[2019-11-15] VITALS (8 sets, daily range): BP systolic 141–166; BP diastolic 56–81
[2019-11-15 05:55] LABS: BASOPHILS % 0.3 % (0.0-1.0); EOSINOPHILS # (AUTO) 0.2 (0.0-0.4); EOSINOPHILS % 3.3 % (0.0-6.0); HEMATOCRIT 23.7 % (38.2-49.6); HEMOGLOBIN 7.6 g/dL (14.0-18.0); LYMPHOCYTES # (AUTO) 0.6 (1.0-3.2); LYMPHOCYTES % 9.2 % (18.0-39.1); MEAN CORPUSCULAR HEMOGLOBIN 29.7 pg (28-32); MEAN CORPUSCULAR HGB CONC 32.1 g/dL (31-35); MEAN CORPUSCULAR VOLUME 92.6 fL (81-99); MONOCYTES # (AUTO) 0.7 (0.2-0.8); MONOCYTES % 10.6 % (4.4-11.3); NEUTROPHILS # (AUTO) 4.8 (2.1-6.9); PLATELET COUNT 195 x10e3/uL (140-360); RED BLOOD COUNT 2.56 x10e6/uL (4.3-5.7); RED CELL DISTRIBUTION WIDTH 13.4 % (11.7-14.4)
[2019-11-15] MEDS: SODIUM CHLORIDE 0.9% 1000ML 1,000 ML IV SCH (06:06)
[2019-11-15 06:20] LABS: ANION GAP 16.1 mmol/L (8-16); CALCIUM 7.4 mg/dL (8.4-10.2); CREATININE, SERUM 2.46 mg/dL (0.72-1.25); POTASSIUM 4.1 mmol/L (3.5-5.1)
[2019-11-15] MEDS: NIFEDIPINE CR 30 MG TAB PO SCH ×2 (08:31→20:48)
[2019-11-15] MEDS: SODIUM BICARBONATE 650 MG TAB PO SCH ×3 (08:32→20:48)
[2019-11-15] MEDS: RIVAROXABAN 10 MG TABLET PO SCH (08:32)
[2019-11-15] MEDS: CEFTRIAXONE SOD 1 GM/NS 50 ML 50 ML IV SCH (08:35)
[2019-11-15] MEDS: INSULIN LISPRO 100 UNIT/1 ML 3ML VIAL SQ SCH ×4 (10:33→20:49)
[2019-11-15] MEDS ORDERED: SODIUM CHLORIDE 0.9% 250ML 250 ML IV ONE (11:15)
[2019-11-15] MEDS ORDERED: HYDROCODONE/APAP 5MG-325MG TAB PO PRN (11:15)
--- NOTE | 2019-11-15 12:23 | Progress Note ---
DATE: 11/15/2019 SUBJECTIVE: Still in some pain, trying to move. He was sitting up earlier. No swelling on the right, some edema on the left where he had his left hip fracture. PHYSICAL EXAMINATION: GENERAL: Sitting up, appears to be in some pain. VITAL SIGNS: Blood pressure 163/65, pulse 89, temperature 98.3. CHEST: Clear. EXTREMITIES: Trace edema on the left, none on the right. LABORATORY DATA: Hemoglobin is 7.6. Iron stores were low. He has gotten IV iron. K is 4.1, serum CO2 19, creatinine 2.4 with it has been stable. BUN of 60. Last phosphorus was 3.8, vitamin D levels are pending. Calcium is 7.4. ASSESSMENT: 1. Acute kidney injury, question tubular necrosis. 2. Metabolic acidosis. 3. Underlying chronic kidney disease, stage 3. Presumed diabetic end-organ damage. 4. Initial hyperkalemia is better. 5. Hypertension. PLAN: 1. Increase sodium bicarbonate to 1300 mg t.i.d., add beta-sarah at low dose. 2. Discontinue IV fluids. 3. A.m. labs. We will follow along. MD ASHLEY Elizondo/JOSUEL /[id number]
--- NOTE | 2019-11-15 19:20 | NUR ---
PATIENT'S BP NOTED TO BE 202/150, PATIENT COMPLAINED OF PAIN TO UPPER ARM DURING BP READ. MOVED TO FOREARM, BP NOTED TO BE 190/82. WAITED A FEW MINUTES TO RETAKE, BP ABOUT THE SAME. PATIENT COMPLAINING OF MILD ITCHING WHICH STARTED AN HOUR AGO, AROUND THE SAME TIME THE BLOOD STARTED. STOPPED BLOOD TRANSFUSION AND CALLED MD BOB IMMEDIATELY. INFORMED OF ELEVATED BP AND ITCHING. MD BOB STATED THAT BECAUSE HE ALREADY HAD ONE UNIT OF BLOOD, AND HIS HGB WAS 7.6, IT WAS OKAY TO STOP THE SECOND UNIT. STATED HE DID NOT BELIEVE IT WAS A TRANSFUSION REACTION, AND TO JUST STOP TRANSFUSION AT THIS TIME. MONITOR BP AND ITCHING. RECHECK HGB AND HCT IN AM. CHANGE BP MEDS TO BID. INFORM MD ANDRADE OF STOPPING SECOND UNIT, D/T HIM BEING THE ORDERING MD. 100ML OF BLOOD FROM SECOND UNIT GIVEN. WILL CONTINUE TO MONITOR.
--- NOTE | 2019-11-15 19:50 | NUR ---
SPOKE TO MD ANDRADE TO INFORM HIM OF STOPPING SECOND UNIT. STATED OKAY.
--- NOTE | 2019-11-15 20:20 | NUR ---
PATIENT'S VITAL SIGNS STABLE AT THIS TIME. BP 159/68. PATIENT REPORTS THE ITCHING STOPPED. WILL CONTINUE TO MONITOR.
[2019-11-15] MEDS: CRESTOR 10MG PO SCH (20:48)
[2019-11-15] MEDS: TAMSULOSIN HCL 0.4 MG CAP PO SCH (20:48)
--- NOTE | 2019-11-15 21:56 | Progress Note ---
DATE: 11/15/2019 SUBJECTIVE: Left leg pain. OBJECTIVE: VITAL SIGNS: Temperature 98.0, pulse 89, respiratory rate 20, and blood pressure 166/65. GENERAL: No acute distress. SKIN: No rash. LUNGS: Clear. HEART: Regular rate and rhythm. Normal S1 and S2. GI: Abdomen soft and nondistended. NEUROLOGIC: Alert and oriented x3. PSYCHIATRIC: No hallucination. MUSCULOSKELETAL: Decreased range of motion of the left hip. LABORATORY DATA: White count 6.3, hemoglobin 7.6, and platelet count 195. Creatinine 2.46. ASSESSMENT AND PLAN: 1. Left hip fracture. Postop day #2 ORIF with acute blood loss anemia. The patient will get transfusion per Dr. Carrillo, Orthopedic. We will continue physical therapy. 2. Mild CRISTINE, a little better on top of stage 3 chronic kidney disease. We will increase bicarb pills and DC IV fluids per Nephrology. 3. Iron deficiency anemia. We will continue iron infusion. 4. Uncontrolled hypertension. We will increase nifedipine, low-dose beta-sarah has been added as well. 5. Diabetes. We will continue sliding scale. 6. Gastrointestinal and deep vein thrombosis prophylaxis. We will continue Xarelto. Rebeccaching MD JOSEP Osman/ABBY /[id number]
[2019-11-16] VITALS (8 sets, daily range): BP systolic 139–169; BP diastolic 56–73
[2019-11-16] MEDS: HYDROCODONE/APAP 5MG-325MG TAB PO PRN ×4 (05:05→17:50)
[2019-11-16 05:55] LABS: HEMATOCRIT 26.2 % (38.2-49.6); HEMOGLOBIN 8.6 g/dL (14.0-18.0)
[2019-11-16 06:27] LABS: ANION GAP 16.2 mmol/L (8-16); CALCIUM 7.4 mg/dL (8.4-10.2); CREATININE, SERUM 2.32 mg/dL (0.72-1.25); POTASSIUM 4.2 mmol/L (3.5-5.1)
[2019-11-16] MEDS: INSULIN LISPRO 100 UNIT/1 ML 3ML VIAL SQ SCH ×4 (07:30→21:14)
[2019-11-16] MEDS: SODIUM BICARBONATE 650 MG TAB PO SCH ×3 (09:29→21:14)
[2019-11-16] MEDS: RIVAROXABAN 10 MG TABLET PO SCH (09:29)
[2019-11-16] MEDS: CEFTRIAXONE SOD 1 GM/NS 50 ML 50 ML IV SCH (09:30)
[2019-11-16] MEDS: NIFEDIPINE CR 30 MG TAB PO SCH ×2 (09:30→17:49)
[2019-11-16] MEDS: CARVEDILOL 3.125 MG TAB PO SCH ×2 (12:00→17:49)
--- OUTSIDE RECORDS SUMMARY | 2019-11-16 14:47 | XMS REPORT | Continuity of Care Document ---
Author Author [facility] t Organization [facility] Address [address] [place] [address] Phone Unavailable Care Team Providers Care Doctor Of Nurse Anesthesia Name Role Phone CLAUDY MCCALL PCP Unavailable Sachi BOB Attphys Unavailable TEChloe Attphys Unavailable Sachi BOB YITAY Admphys Unavailable TEChloe QUINONEZ Admphys Unavailable Payers Payer Name Policy Type Policy Number Effective Date Expiration Date Jeanine Morrissey [id number] 2018 00:00:00 [facility] Problems Condition Name Condition Details Condition Category Status Onset Date Resolution Date Last Treatment Date Treating Clinician Comments Source Acute posterior epistaxis Acute posterior epistaxis Problem Active [facility] Anemia Anemia Problem Active [facility] Fracture of neck of right femur Fracture of femoral neck, right Pro blem Active [facility] Hyperkalemia Hyperkalemia Problem Active [facility] Hypertension Hypertension Problem Active [facility] Poorly controlled diabetes mellitus Poorly controlled diabetes m ellitus Problem Active [facility] Renal insufficiency Renal insufficiency Problem Active [facility] Allergies, Adverse Reactions, Alerts This patient has no known allergies or adverse reactions. Medications Ordered Medication Name Filled Medication Name Start Date Stop Da te Current Medication? Ordering Clinician Indication Dosage Frequency Signature (SIG) Comments Components Source Acetaminophen/Codeine Phosphate (Tylenol # 3*) 1 Ea Ta b Acetaminophen/Codeine Phosphate (Tylenol # 3*) 1 Ea Tab 2018-10-14 00:00:00 Yes Fermín Garrison [employer]ing [employer] 1 Every 6 Hours as needed for Moderate Pain (4-6) [facility] Nifedipine (Nifedipine Er) 30 Mg Tab.er.24 Nifedipine (Nifedipine Er) 30 Mg Tab.er.24 2018-10-14 00:00:00 Yes Gisell Garrison [employer]ing [employer] 30 Da angel [facility] Aspirin (Aspir 81) 81 Mg Tablet. Aspirin (Aspir 81) 81 Mg Tablet. Yes Daily [facility] Glipizide/Metformin Hcl (Glipizide-Metformin 5-500 Mg) 1 Each Tablet Glipizide/Metformin Hcl (Glipizide-Metformin 5-500 Mg) 1 Each Tablet Yes Twice Daily Before Meals [facility] Insulin Glargine (Lantus 3ML Pen) 100 Units/1 Ml Inj I nsulin Glargine (Lantus 3ML Pen) 100 Units/1 Ml Inj Yes 26 Bedtime [facility] Lisinopril 10 Mg Tablet Lisinopril 10 Mg Tablet Yes 40 Daily [facility] Pravastatin Sodium 20 Mg Tablet Pravastatin Sodium 20 Mg Tablet Yes 1 Bedtime [facility] Sodium Polystyrene Sulfonate (Kayexalate) 453.6 Gm Pow nathalia Sodium Polystyrene Sulfonate (Kayexalate) 453.6 Gm Powder Yes [facility] Ferrous Gluconate 324 Mg Tablet, Oral Ferrous Gluconate 32 4 Mg Tablet, Oral 2018-10-08 00:00:00 No Twice Daily With Chloe mataed [facility] Sulfamethoxazole/Trimethoprim (Sulfameth oxazole-Tmp Ds Tablet) 1 Each Tablet, Oral Sulfamethoxazole/Trimethoprim (Sulfameth oxazole-Tmp Ds Tablet) 1 Each Tablet, Oral 2016-07-11 00:00:00 No Twice A D sarai [facility] Procedures Procedure Date / Time Performed Performing Clinician [facility] e INSERTION OF INT FIX INTO R FEMUR SHAFT, PERC APPROACH 10-08 00:00:00 KARYN ANDRADE [facility] Encounters Start Date/Time End Date/Time Encounter Type Admission Type Attendi [facility] Facility Care Department Encounter ID Source 2019-05-07 16:44:00 2019-05-07 19:25:00 Departed Emergency Room [facility] [id number] [facility] 2018-10-08 18:39:00 2018-10-14 15:24:00 Discharged Inpatient 1 AVTAR TIWARI [facility] [id number] [facility] Results Test Description Test Time Test Comments Results Result Comments Source HIP LEFT 2-3 VW (+/- PELVIS) 2019-11-13 14:25:00 [place] [address] Patient Name: ROSY WEBB JR, V MR #: [id number] : 1945 Age/Sex: 74/M Req #: [id number] Adm Physician: TRUDY BOB MD Ordered by: KARYN ANDRADE MD Report #: [id number] Location: MED/SURG Room/Bed: [facility] Procedure: [id number] DX/HIP LEFT 2-3 VW (+/- PELVIS) Exam Date: Exam Time: REPORT STATUS: Signed Left hip, 2 views INDICATION: POST OP Y Comparison: 11/10/2019. Discussion: Postoperative changes from open reduction and internal fixation of the left femoral neck and proximal femoral shaft are noted with a short intramedullary femoral fixation lucas and a femoral neck fixation partially threaded screw. Transverse fixation screw is identified within the proximal third of the femoral shaft. Hardware appears to be in proper alignment and intact. There are stable postsurgical changes of the right femoral neck with 3 partially threaded fixation screws. Pubic symphysis is not widened. Sacrum is obscured by overlying bowel gas. IMPRESSION: Postoperative changes from left hip open reduction and internal fixation. There appears to be anatomic alignment without evidence of hardware malfunction. Signed by: Loi Montiel MD on 11/13/2019 2:27 PM Dictated By: LOI MONTIEL MD 26 Transcribed By: AUBREY on 11/13/191426 COPY TO: KARYN ANDRADE MD CHEST SINGLE (PORTABLE) 2019-11-11 09:36:00 [place] [address] Patient Name: ROSY WEBB JR, V MR #: [id number] : 1945 Age/Sex: 74/M Req #: [id number] Adm Physician: TRUDY BOB MD Ordered by: TRUDY BOB MD Report #: [id number] Location: MED/SURG Room/Bed: [facility] Procedure: [id number] DX/CHEST SINGLE (PORTABLE) Exam Date: 11/11/19 Exam Time: 0525 REPORT STATUS: Signed EXAMINATION: CHEST SINGLE (PORTABLE) INDICATION: Abnormal prior chest x-ray COMPARISON: Chest radiograph 11/10/2019 FINDINGS: LINES/TUBES:EKG leads overlie the chest. LUNGS:The lungs are well-inflated. Left lower lung subsegmental atelectasis. No focal consolidation or airspace edema. PLEURA:No pleural effusion or pneumothorax. MEDIASTINUM:The cardiomediastinal silhouette appears unchanged in size and shape. BONES/SOFT TISSUES:No acute osseous injury. ABDOMEN:No free air under the diaphragm. IMPRESSION: Left lower lung subsegmental atelectasis. No focal pneumonia or pulmonary edema. Signed by: Belle Tucker MD on 11/11/2019 9:37 AM Dictated By: BELLE TUCKER MD 6 Transcribed By: AUBREY on 11/11/19936 COPY TO: TRUDY BOB MD RENAL RETROPERITONEAL COMP 2019-11-11 09:25:00 [place] [id number] [place] [address] Patient Name: ROSY WEBB JR, V MR #: [id number] : 1945 Age/Sex: 74/M Req #: [id number] Adm Physician: TRUDY BOB MD Ordered by: BARBER BENJAMIN MD Report #: [id number] Location: MED/SURG Room/Bed: [facility] Procedure: [id number] US/US RENAL RETROPERITONEAL COMP Exam Date: 11/11/19 Exam Time: 830 REPORT STATUS: Signed EXAM: Renal Ultrasound INDICATION: Acute renal failure. arf [id number] COMPARISON: None TECHNIQUE: Transverse and longitudinal images of the kidneys and bladder were obtained. FINDINGS: Right Kidney: Length: 10.7 x 5.1 x 4.8 cm Appearance: Normal echogenicity. Collecting system: No hydronephrosis Stones: None Cyst/Mass: None Left Kidney: Length: 9.8 x 5.1 x 5.2 cm Appearance: Normal echogenicity. Collecting system: No hydronephrosis Stones: None Cyst/Mass: None Bladder: Jorgensen catheter IMPRESSION: Normal renal ultrasound exam. Signed by: Dr. Smiley Plascencia M.D. on 11/11/2019 9:27 AM Dictated By: SMILEY PLASCENCIA MD, MD 6 Transcribed By: AUBREY on 11/11/19926 COPY TO: BARBER BENJAMIN MD [facility] (PORTABLE) 2019-11-10 15:12:00 [place] [address] Patient Name: ROSY WEBB JR, V MR #: [id number] : 1945 Age/Sex: 74/M Req #: [id number] Adm Physician: Ordered by: JANAY CARD MD Report #: [id number] Location: ER Room/Bed: Procedure: [id number] DX/CHEST SINGLE (PORTABLE) Exam Date: 11/10/19 Exam Time: 1441 REPORT STATUS: Signed TECHNIQUE: Frontal view of the chest. INDICATION: [id number]. COMPARISON: None. FINDINGS: LINES/TUBES: None. LUNGS: There is some questionable streaky and patchy opacity in the left base. PLEURA: No pneumothorax or significant pleural effusion. HEART AND MEDIASTINUM: The cardiomediastinal silhouette is within normal limits. SOFT TISSUES AND BONES: Unremarkable. IMPRESSION: There is some questionable streaky and patchy opacity in the left base which could be due to atelectasis but is indeterminate. Consider further evaluation with PA and lateral chest radiographs. Signed by: Luis F Duncan JR, MD on 11/10/2019 3:14 PM Dictated By: LUIS F DUNCAN MD 13 Transcribed By: AUBREY on 11/10/191513 COPY TO: JANAY ACRD MD FEMUR 2 VIEWS MINIMUM LEFT 2019-11-10 15:04:00 [place] [address] Patient Name: ROSY WEBB JR, V MR #: [id number] : 1945 Age/Sex: 74/M Req #: [id number] Adm Physician: Ordered by: JANAY CARD MD Report #: [id number] Location: ER Room/Bed: Procedure: [id number] DX/FEMUR 2 VIEWS MINIMUM LEFT Exam Date: Exam Time: REPORT STATUS: Signed TECHNIQUE: 2-3 views of the left hip. Minimum 2 views of the left femur. 3 views of the left knee INDICATION: FALL 20191110. COMPARISON: None. FINDINGS: LEFT HIP Acute, intertrochanteric left femoral fracture with mild, 1.1 cm distraction. There are intramedullary nails in the right proximal femur. Moderate degenerative changes at L4-L5. Calcification of the arteries of the left leg. LEFT FEMUR No acute fractures or dislocations. Joint spaces are within normal limits. Soft tissues are grossly unremarkable. LEFT KNEE No acute fractures or dislocations. Joint spaces are within normal limits. Soft tissues are grossly unremarkable. IMPRESSION: Acute, intertrochanteric left femoral fracture. Signed by: Luis F Duncan JR, MD on 11/10/2019 3:11 PM Dictated By: LUIS F DUNCAN MD 10 Transcribed By: AUBREY on 11/10/191510 COPY TO: JANAY CARD MD HIP LEFT 2-3 VW (+/- PELVIS) 2019-11-10 15:04:00 [place] [address] Patient Name: ROSY WEBB JR, V MR #: [id number] : 1945 Age/Sex: 74/M Req #: [id number] Adm Physician: Ordered by: JANAY CARD MD Report #: [id number] Location: ER Room/Bed: Procedure: DX/HIP LEFT 2-3 VW (+/- PELVIS) Exam Date: Exam Time: REPORT STATUS: Signed TECHNIQUE: 2-3 views of the left hip. Minimum 2 views of the left femur. 3 views of the left knee INDICATION: FALL 20191110. COMPARISON: None. FINDINGS: LEFT HIP Acute, intertrochanteric left femoral fracture with mild, 1.1 cm distraction. There are intramedullary nails in the right proximal femur. Moderate degenerative changes at L4-L5. Calcification of the arteries of the left leg. LEFT FEMUR No acute fractures or dislocations. Joint spaces are within normal limits. Soft tissues are grossly unremarkable. LEFT KNEE No acute fractures or dislocations. Joint spaces are within normal limits. Soft tissues are grossly unremarkable. IMPRESSION: Acute, intertrochanteric left femoral fracture. Signed by: Luis F Duncan JR, MD on 11/10/2019 3:11 PM Dictated By: LUIS F DUNCAN MD 10 Transcribed By: AUBREY on 11/10/191510 COPY TO: JANAY CARD MD KNEE LEFT THREE VIEWS 2019-11-10 15:04:00 [place] [address] Patient Name: ROSY WEBB JR, V MR #: [id number] : 1945 Age/Sex: 74/M Req #: [id number] Adm Physician: Ordered by: JANAY CARD MD Report #: [id number] Location: ER Room/Bed: Procedure: DX/KNEE LEFT THREE VIEWS Exam Date: 11/10/19 Exam Time: 1442 REPORT STATUS: Signed TECHNIQUE: 2-3 views of the left hip. Minimum 2 views of the left femur. 3 views of the left knee INDICATION: FALL 20191110. COMPARISON: None. FINDINGS: LEFT HIP Acute, intertrochanteric left femoral fracture with mild, 1.1 cm distraction. There are intramedullary nails in the right proximal femur. Moderate degenerative changes at L4-L5. Calcification of the arteries of the left leg. LEFT FEMUR No acute fractures or dislocations. Joint spaces are within normal limits. Soft tissues are grossly unremarkable. LEFT KNEE No acute fractures or dislocations. Joint spaces are within normal limits. Soft tissues are grossly unremarkable. IMPRESSION: Acute, intertrochanteric left femoral fracture. Signed by: Luis F Duncan JR, MD on 11/10/2019 3:11 PM Dictated By: LUIS F DUNCAN MD 10 Transcribed By: AUBREY on 11/10/191510 COPY TO: JANAY CARD MD CT CERVICAL SPINE WO 2019-11-10 14:35:00 [place] [address] Patient Name: ROSY WEBB JR, V MR #: [id number] : 1945 Age/Sex: 74/M Req #: [id number] Adm Physician: Ordered by: JANAY CARD MD Report #: [id number] Location: ER Room/Bed: Procedure: CT/CT CERVICAL SPINE WO Exam Date: 11/10/19 Exam Time: 1410 REPORT STATUS: Signed EXAMINATION: Head and cervical spine CT without contrast. HISTORY: 74-year-old male, post fall, trauma, head and neck pain COMPARISON: None. TECHNIQUE: Multidetector axial images were obtained without contrast from the foramen magnum to the vertex and through the cervical spine. Dose modulation, iterative reconstruction, and/or weight based adjustment of the mA/kV was utilized to reduce the radiation dose to as low as reasonably achievable. HEAD CT FINDINGS: Skull/scalp: No lytic or blastic lesions. No fractures. Parenchyma: Few scattered white matter hypodensities, most likely nonspecific chronic microvascular ischemic changes. No mass, hemorrhage or CT evidence of acute vascular insult. Brain volume: Disproportionate dilatation of the right temporal horn, which may be compensatory to right temporal lobe atrophy, perhaps the sequela from prior insult such as trauma, ischemia or infection versus related to Alzheimer's disease in the appropriate clinical setting. Ventricles: No hydrocephalus or displacement. Arteries: No density suggestive of thrombus. Dural sinuses: No abnormal density. Extra-axial spaces: No abnormal density. Foramen magnum: No mass, Chiari ma lformation, or basilar invagination. Sella: No obvious mass. Paranasal/mastoid sinuses: Imaged portions unremarkable. CERVICAL SPINE CT FINDINGS: Alignment:Normal alignment and lordosis. Soft tissues: Normal. Vertebrae: Normal height and density. No acute fracture, infection or neoplasm. Degenerative changes: C1-C2: Degenerative changes without stenosis. C2-C3: Uncovertebral and facet arthrosis without stenosis. C3-C4: Disc osteophyte compresses formation, uncovertebral and facet arthrosis. Moderate right foraminal stenosis. Mild canal narrowing. C4-C5: Disc osteophyte complex formation, uncovertebral and facet necrosis on the left. Moderate left neural foraminal stenosis. C5-C6: Uncovertebral arthrosis on the left, mild foraminal narrowing. C6-C7: Uncovertebral and facet arthrosis on the left without canal or foraminal stenosis. C7-T1: Normal IMPRESSION: Head CT: 1. No acute postraumatic intracranial hemorrhage. 2. Mild chronic microvascular ischemic changes. 3. Disproportionate prominence of the right temporal horn from atrophy as described. Cervical spine CT: 1. No acute fractures or dislocations. 2. Chronic degenerative changes as detail above. Note: Acute post traumatic spinal cord, vascular or ligamentous injury cannot adequately be assessed with CT. Signed by: Dr. Christal Hong M.D. on 11/10/2019 2:44 PM Dictated By: CHRISTAL HONG MD 43 Transcribed By: AUBREY on 11/10/191443 COPY TO: JANAY CARD MD CT BRAIN WO 2019-11-10 14:35:00 [place] [address] Patient Name: ROSY WEBB JR, V MR #: [id number] : 1945 Age/Sex: 74/M Req #: [id number] Adm Physician: Ordered by: JANAY CARD MD Report #: [id number] Location: ER Room/Bed: Procedure: [id number] CT/CT BRAIN WO Exam Date: 11/10/19 Exam Time: 1410 REPORT STATUS: Signed EXAMINATION: Head and cervical spine CT without contrast. HISTORY: 74-year-old male, post fall, trauma, head and neck pain COMPARISON: None. TECHNIQUE: Multidetector axial images were obtained without contrast from the foramen magnum to the vertex and through the cervical spine. Dose modulation, iterative reconstruction, and/or weight based adjustment of the mA/kV was utilized to reduce the radiation dose to as low as reasonably achievable. HEAD CT FINDINGS: Skull/scalp: No lytic or blastic lesions. No fractures. Parenchyma: Few scattered white matter hypodensities, most likely nonspecific chronic microvascular ischemic changes. No mass, hemorrhage or CT evidence of acute vascular insult. Brain volume: Disproportionate dilatation of the right temporal horn, which may be compensatory to right temporal lobe atrophy, perhaps the sequela from prior insult such as trauma, ischemia or infection versus related to Alzheimer's disease in the appropriate clinical setting. Ventricles: No hydrocephalus or displacement. Arteries: No density suggestive of thrombus. Dural sinuses: No abnormal density. Extra-axial spaces: No abnormal density. Foramen magnum: No mass, Chiari malformation, or basilar invagination. Sella: No obvious mass. Paranasal/mastoid sinuses: Imaged portions unremarkable. CERVICAL SPINE CT FINDINGS: Alignment:Normal alignment and lordosis. Soft tissues: Normal. Vertebrae: Normal height and density. No acute fracture, infection or neoplasm. Degenerative changes: C1-C2: Degenerative changes without stenosis. C2-C3: Uncovertebral and facet arthrosis without stenosis. C3-C4: Disc osteophyte compresses formation, uncovertebral and facet arthrosis. Moderate right foraminal stenosis. Mild canal narrowing. C4-C5: Disc osteophyte complex formation, uncovertebral and facet necrosis on the left. Moderate left neural foraminal stenosis. C5-C6: Uncovertebral arthrosis on the left, mild foraminal narrowing. C6-C7: Uncovertebral and facet arthrosis on the left without canal or foraminal stenosis. C7-T1: Normal IMPRESSION: Head CT: 1. No acute postraumatic intracranial hemorrhage. 2. Mild chronic microvascular ischemic changes. 3. Disproportionate prominence of the right temporal horn from atrophy as described. Cervical spine CT: 1. No acute fractures or dislocations. 2. Chronic degenerative changes as detail above. Note: Acute post traumatic spinal cord, vascular or ligamentous injury cannot adequately be assessed with CT. Signed by: Dr. Christal Hong M.D. on 11/10/2019 2:44 PM Dictated By: CHRISTAL HONG MD 1444 Transcribed By: AUBREY on 11/10/19 1444 COPY TO: JANAY CARD MD Bedside Glucose 2019-05-07 19:13:00 Test Item Bedside Glucose (test code = 73204-4) 319 70-120 H Meter ID: [id number] [facility] 2018-10-13 19:37:00* Test Item Value Reference Range Interpretation Comments Bedside Glucose (test code = 34309-3) 172 70-120 H Meter ID: [id number] [facility] SINGLE (PORTABLE)2018-10-12 06:39:00 [place] [address] Patient Name: ROSY WEBB JR, V MR #: [id number] : 1945 Age/Sex: 73/M Req #: [id number] Adm Physician: AVTAR TIWARI MD, ABIM Ordered by: AVTAR TIWARI MD Report #: [id number] Location: MED/SURG Room/Bed: [facility] Procedure: [id number] DX/CHEST SINGLE (PORTABLE) Exam Date: 10/12/18 Exam Time: 524 REPORT STATUS: Signed EXAMINATION: CHEST SINGLE (PORTABLE) INDICATION: Congestive heart failure COMPARISON: Chest radiograph 10/11/2018 FINDINGS: AP view TUBES and LINES: None. LUNGS: Lungs are well inflated. Subtle hazy opacity in the right apex. There is mild prominence of the central pulmonary vasculature, consistent with pulmonary venous congestion. P LEURA: No pleural effusion or pneumothorax. HEART AND MEDIASTINUM: The ca rdiomediastinal silhouette is unremarkable. BONES AND SOFT TISSUES: No acute osseous lesion. Soft tissues are unremarkable. UPPER ABDOMEN: No free air under the diaphragm. IMPRESSION: Pulmonary vascular mer estion. Subtle hazy opacity in the right lung apex may represent trace pleural fluid Signed by: Aashish Salinas DO on 10/12/2018 6:41 AM Dictated By: AASHISH SALINAS DO 0 COPY TO: BE TIWARI MD, ABIM [id number] 05:47:00* Test Item Value Reference Range Interpretation Comments Hemoglobin (test code = 84591-5) 9.4 14.0-18.0 [facility] 05:47:00* Test Item Value Reference Range Interpretation Comments Hematocrit (test code = 4544-3) 28.3 38.2-49.6 L [facility]2019-08-24 05:47:00* Test Item Value Reference Range Interpretation Comments Hemoglobin (test code = 13953-5) 9.4 14.0-18.0 L [facility]2019-08-24 05:47:00* Test Item Value Reference Range Interpretation Comments Hematocrit (test code = 4544-3) 28.3 38.2-49.6 [facility]2018-10-11 07:26:00 [place] [address] Patient Name: ROSY WEBB JR, V MR #: [id number] : 1945 Age/Sex: 73/M Req #: [id number] Adm Physician: AVTAR TIWARI MD, [facility] Ordered by: AVTAR TIWARI MD Report #: [id number] Location: MED/SURG Room/Bed: [facility] Procedure: [id number] DX/CHEST SINGLE (PORTABLE) Exam Date: 10/11/18 Exam Time: 0540 REPORT STATUS: Signed EXAMINATION: CHEST SINGLE (PORTABLE) INDICATION: Congestive heart failure COMPARISON: Chest radiograph 10/09/2018 FINDI NGS: AP view TUBES and LINES: None. LUNGS: Lungs are well inflat ed. Lungs are clear. There is mild prominence of the central pulmonary vascul ature, consistent with pulmonary venous congestion. PLEURA: No pleural eff usion or pneumothorax. HEART AND MEDIASTINUM: The cardiomediastinal silhou ette is unremarkable. BONES AND SOFT TISSUES: No acute osseous lesion. Soft tissues are unremarkable. UPPER ABDOMEN: No free air under the yola phragm. IMPRESSION: Central pulmonary vascular congestion. Signed by: aAshish Salinas DO on 10/11/2018 7:27 AM Dictated By: AASHISH SALINAS DO 6 Tr anscribed By: AUBREY on 10/11/18726 COPY TO: AVTAR TIWARI MD, ABIM White Blood [id number] 06:51:00* Test Item Value Reference Range Interpretation Comments White Blood Count (test code = 6690-2) 9.46 4.8-10.8 [facility] [id number] 06:51:00* Test Item Value Reference Range Interpretation Comments Red Blood Count (test code = 789-8) 3.43 4.3-5.7 L [facility] Corpuscular [id number] 06:51:00* Test Item Value Reference Range Interpretation Comments Mean Corpuscular Volume (test code = 787-2) 93.9 81-99 [facility] Corpuscular Bpvfqhwyhv3836-69-49 06:51:00* Test Item Value Reference Range Interpretation Comments Mean Corpuscular Hemoglobin (test code = 785-6) 30.6 28-32 [facility] Hemoglobin Concent 2018-10-11 06:51:00* Test Item Value Reference Range Interpretation Comments Mean Corpuscular Hemoglobin Concent (test code = 786-4) 32.6 31-35 [facility] Distribution [id number] 06:51:00* Test Item Value Reference Range Interpretation Comments Red Cell Distribution Width (test code = 20199-1) 15.5 11.7 -14.4 H [facility]Platelet [id number] 06:51:00* Test Item Value Reference Range Interpretation Comments Platelet Count (test code = 777-3) 241 140-360 [facility] (%) (Auto)2018-10-11 06:51:00 * Test Item Value Reference Range Interpretation Comments Neutrophils (%) (Auto) (test code = 60864-9) 76.8 38.7-80.0 [facility]ymph[facility] (%) (Auto)2018-10-11 06:51:00 * Test Item Value Reference Range Interpretation Comments Lymphocytes (%) (Auto) (test code = 736-9) 9.1 18.0-39.1 L [facility] (%) (Auto)2018-10-11 06:51:00* Test Item Value Reference Range Interpretation Comments Monocytes (%) (Auto) (test code = 5905-5) 12.7 4.4-11.3 [facility] (%) (Auto)2018-10-11 06:51:00 * Test Item Value Reference Range Interpretation Comments Eosinophils (%) (Auto) (test code = 713-8) 0.7 0.0-6.0 [facility] (%) (Auto)2018-10-11 06:51:00* Test Item Value Reference Range Interpretation Comments Basophils (%) (Auto) (test code = 706-2) 0.3 0.0-1.0 [facility] %2018-10-11 06:51:00* Test Item Value Reference Range Interpretation Comments IM GRANULOCYTES % (test code = IM GRANULOCYTES %) 0.4 0.0- 1.0 [facility]ils # (Auto)2018-10-11 06:51:00* Test Item Value Reference Range Interpretation Comments Neutrophils # (Auto) (test code = 751-8) 7.3 2.1-6.9 H [facility]Lymphocytes # (Auto)2018-10-11 06:51:00* Test Item Value Reference Range Interpretation Comments Lymphocytes # (Auto) (test code = 16554-9) 0.9 1.0-3.2 L [facility]ocytes # (Auto)2018-10-11 06:51:00* Test Item Value Reference Range Interpretation Comments Monocytes # (Auto) (test code = 742-7) 1.2 0.2-0.8 [facility] # (Auto)2018-10-11 06:51:00* Test Item Value Reference Range Interpretation Comments Eosinophils # (Auto) (test code = 711-2) 0.1 0.0-0.4 [facility] # (Auto)2018-10-11 06:51:00* Test Item Value Reference Range Interpretation Comments Basophils # (Auto) (test code = 704-7) 0.0 0.0-0.1 [facility] AllenAbsolute Immature Granulocyte (auto 2018-10-11 06:51:00* Test Item Value Reference Range Interpretation Comments Absolute Immature Granulocyte (auto (emile t code = Absolute Immature Granulocyte (auto) 0.04 0-0.1 [facility] AllenWhite Blood Alptj5267-70-97 06:51:00* Test Item Value Reference Range Interpretation Comments White Blood Count (test code = 6690-2) 9.46 4.8-10.8 [facility] AllenRed Blood Agupa0842-13-55 06:51:00* Test Item Value Reference Range Interpretation Comments Red Blood Count (test code = 789-8) 3.43 4.3-5.7 L [facility] AllenMean Corpuscular Kgkvpf8176-24-98 06:51:00* Test Item Value Reference Range Interpretation Comments Mean Corpuscular Volume (test code = 787-2) 93.9 81-99 [facility] AllenMean Corpuscular Izlrizbzyn6713-84-69 06:51:00* Test Item Value Reference Range Interpretation Comments Mean Corpuscular Hemoglobin (test code = 785-6) 30.6 28-32 [facility] AllenMean Corpuscular Hemoglobin Concent 2018-10-11 06:51:00* Test Item Value Reference Range Interpretation Comments Mean Corpuscular Hemoglobin Concent (test code = 786-4) 32.6 31-35 [facility] AllenRed Cell Distribution Xgyul5059-78-00 06:51:00* Test Item Value Reference Range Interpretation Comments Red Cell Distribution Width (test code = 36311-2) 15.5 11.7 -14.4 H [facility] AllenPlatelet Tyhwy2046-14-91 06:51:00* Test Item Value Reference Range Interpretation Comments Platelet Count (test code = 777-3) 241 140-360 [facility] AllenNeutrophils (%) (Auto)2018-10-11 06:51:00 * Test Item Value Reference Range Interpretation Comments Neutrophils (%) (Auto) (test code = 83194-7) 76.8 38.7-80.0 [facility] AllenLymphocytes (%) (Auto)2018-10-11 06:51:00 * Test Item Value Reference Range Interpretation Comments Lymphocytes (%) (Auto) (test code = 736-9) 9.1 18.0-39.1 L [facility]Monocytes (%) (Auto)2018-10-11 06:51:00* Test Item Value Reference Range Interpretation Comments Monocytes (%) (Auto) (test code = 5905-5) 12.7 4.4-11.3 [facility]Eosinophils (%) (Auto)2018-10-11 06:51:00 * Test Item Value Reference Range Interpretation Comments Eosinophils (%) (Auto) (test code = 713-8) 0.7 0.0-6.0 [facility]Basophils (%) (Auto)2018-10-11 06:51:00* Test Item Value Reference Range Interpretation Comments Basophils (%) (Auto) (test code = 706-2) 0.3 0.0-1.0 [facility] AllenIM GRANULOCYTES %2018-10-11 06:51:00* Test Item Value Reference Range Interpretation Comments IM GRANULOCYTES % (test code = IM GRANULOCYTES %) 0.4 0.0- 1.0 [facility]Neutrophils # (Auto)2018-10-11 06:51:00* Test Item Value Reference Range Interpretation Comments Neutrophils # (Auto) (test code = 751-8) 7.3 2.1-6.9 [facility] AllenLymphocytes # (Auto)2018-10-11 06:51:00* Test Item Value Reference Range Interpretation Comments Lymphocytes # (Auto) (test code = 98874-6) 0.9 1.0-3.2 L [facility] AllenMonocytes # (Auto)2018-10-11 06:51:00* Test Item Value Reference Range Interpretation Comments Monocytes # (Auto) (test code = 742-7) 1.2 0.2-0.8 [facility]Eosinophils # (Auto)2018-10-11 06:51:00* Test Item Value Reference Range Interpretation Comments Eosinophils # (Auto) (test code = 711-2) 0.1 0.0-0.4 [facility]Basophils # (Auto)2018-10-11 06:51:00* Test Item Value Reference Range Interpretation Comments Basophils # (Auto) (test code = 704-7) 0.0 0.0-0.1 [facility] AllenAbsolute Immature Granulocyte (auto 2018-10-11 06:51:00* Test Item Value Reference Range Interpretation Comments Absolute Immature Granulocyte (auto (emile t code = Absolute Immature Granulocyte (auto) 0.04 0-0.1 [facility] Yhdfl3851-45-92 06:35:00* Test Item Value Reference Range Interpretation Comments Sodium Level (test code = 2951-2) 137 136-145 [facility]Potassium Hckvo5198-98-04 06:35:00* Test Item Value Reference Range Interpretation Comments Potassium Level (test code = 2823-3) 4.6 3.5-5.1 [facility] AllenChloride Pulqw0634-69-43 06:35:00* Test Item Value Reference Range Interpretation Comments Chloride Level (test code = 2075-0) 105 98-107 [facility] AllenCarbon Dioxide Qgune3574-62-72 06:35:00* Test Item Value Reference Range Interpretation Comments Carbon Dioxide Level (test code = 2028-9) 23 22-29 [facility] AllenAnion Sbe5703-48-02 06:35:00* Test Item Value Reference Range Interpretation Comments Anion Gap (test code = 26666-6) 13.6 8-16 [facility] AllenBlood Urea Cdprrqib5934-33-94 06:35:00* Test Item Value Reference Range Interpretation Comments Blood Urea Nitrogen (test code = 3094-0) 36 7-26 [facility] AllenCreatinine2019-08-23 06:35:00* Test Item Value Reference Range Interpretation Comments Creatinine (test code = 2160-0) 1.59 0.72-1.25 [facility] AllenBUN/Creatinine Xzmqk3136-81-21 06:35:00* Test Item Value Reference Range Interpretation Comments BUN/Creatinine Ratio (test code = 3097-3) 23 6- [facility] AllenEstimat Glomerular Filtration Rate 2018-10-11 06:35:00* Test Item Value Reference Range Interpretation Comments Estimat Glomerular Filtration Rate (test code = 158567653) 43 >60 L Ranges were taken from the National Kidney Disease Education Program and the [facility] literature.Reference ranges:60 or greater: Ajghfm17-12 ( for 3 consecutive months): Chronic kidney disease 15 or less: Kidney failureTexas Health AllenGlucose Gczmq5111-95-56 06:35:00* Test Item Value Reference Range Interpretation Comments Glucose Level (test code = KSL2469) 243 74-118 [facility] AllenCalcium Spedl5153-73-35 06:35:00* Test Item Value Reference Range Interpretation Comments Calcium Level (test code = 73167-7) 8.2 8.4-10.2 L [facility] AllenPhosphorus Zwrue7653-90-02 06:35:00* Test Item Value Reference Range Interpretation Comments Phosphorus Level (test code = TFG4439) 3.9 2.3-4.7 [facility] AllenMagnesium Ugrtf8126-20-43 06:35:00* Test Item Value Reference Range Interpretation Comments Magnesium Level (test code = 40877-0) 2.3 1.3-2.1 H [facility] AllenTotal Blizdqmgv9174-26-61 06:35:00* Test Item Value Reference Range Interpretation Comments Total Bilirubin (test code = 1975-2) 0.3 0.2-1.2 [facility] AllenAspartate Amino Transf (AST/SGOT) 2018-10-11 06:35:00* Test Item Value Reference Range Interpretation Comments Aspartate Amino Transf (AST/SGOT) (test code = Aspartate Amino Transf (AST/SGOT)) 11 5-34 [facility] AllenAlanine Aminotransferase (ALT/SGPT) 2018-10-11 06:35:00* Test Item Value Reference Range Interpretation Comments Alanine Aminotransferase (ALT/SGPT) (test code = 1742-6) 7 0-55 [facility] AllenTotal Yutxmwz2095-34-73 06:35:00* Test Item Value Reference Range Interpretation Comments Total Protein (test code = 2885-2) 5.7 6.5-8.1 L [facility] AllenAlbumin2019-08-23 06:35:00* Test Item Value Reference Range Interpretation Comments Albumin (test code = 1751-7) 2.6 3.5-5.0 L [facility] AllenGlobulin2019-08-23 06:35:00* Test Item Value Reference Range Interpretation Comments Globulin (test code = 35051-4) 3.1 2.3-3.5 [facility] AllenAlbumin/Globulin Fiydy0659-07-12 06:35:00 * Test Item Value Reference Range Interpretation Comments Albumin/Globulin Ratio (test code = 1759-0) 0.8 0.8-2.0 [facility] AllenAlkaline Nfvkysjpsrj2541-09-69 06:35:00* Test Item Value Reference Range Interpretation Comments Alkaline Phosphatase (test code = 6768-6) 104 40-150 [facility] Csroc5953-12-69 06:35:00* Test Item Value Reference Range Interpretation Comments Sodium Level (test code = 2951-2) 137 136-145 [facility] AllenPotassium Iaxit2586-62-26 06:35:00* Test Item Value Reference Range Interpretation Comments Potassium Level (test code = 2823-3) 4.6 3.5-5.1 [facility] AllenChloride Wpiqt3225-99-13 06:35:00* Test Item Value Reference Range Interpretation Comments Chloride Level (test code = 2075-0) 105 98-107 [facility] AllenCarbon Dioxide Onycb3649-53-33 06:35:00* Test Item Value Reference Range Interpretation Comments Carbon Dioxide Level (test code = 2028-9) 23 22-29 [facility] AllenAnion Qam4197-34-93 06:35:00* Test Item Value Reference Range Interpretation Comments Anion Gap (test code = 23565-6) 13.6 8-16 [facility] AllenBlood Urea Yojrhona3464-32-08 06:35:00* Test Item Value Reference Range Interpretation Comments Blood Urea Nitrogen (test code = 3094-0) 36 7-26 H [facility] AllenCreatinine2019-08-23 06:35:00* Test Item Value Reference Range Interpretation Comments Creatinine (test code = 2160-0) 1.59 0.72-1.25 H [facility] AllenBUN/Creatinine Inejl7475-36-47 06:35:00* Test Item Value Reference Range Interpretation Comments BUN/Creatinine Ratio (test code = 3097-3) 23 6-25 [facility] AllenEstimat Glomerular Filtration Rate 2018-10-11 06:35:00* Test Item Value Reference Range Interpretation Comments Estimat Glomerular Filtration Rate (test code = 622337265) 43 >60 L Ranges were taken from the National Kidney Disease Education Program and the [facility] literature.Reference ranges:60 or greater: Nzddew31-92 ( for 3 consecutive months): Chronic kidney disease 15 or less: Kidney failureTexas Health AllenGlucose Ivlyh0437-66-67 06:35:00* Test Item Value Reference Range Interpretation Comments Glucose Level (test code = CHU9671) 243 74-118 H [facility] AllenCalcium Kgavu7629-43-45 06:35:00* Test Item Value Reference Range Interpretation Comments Calcium Level (test code = 57775-8) 8.2 8.4-10.2 L [facility] AllenPhosphorus Ongrg1651-52-40 06:35:00* Test Item Value Reference Range Interpretation Comments Phosphorus Level (test code = PJQ4625) 3.9 2.3-4.7 [facility] AllenMagnesium Pwcow8531-63-65 06:35:00* Test Item Value Reference Range Interpretation Comments Magnesium Level (test code = 30017-2) 2.3 1.3-2.1 H [facility] AllenTotal Mhngowiur4728-71-57 06:35:00* Test Item Value Reference Range Interpretation Comments Total Bilirubin (test code = 1975-2) 0.3 0.2-1.2 [facility] AllenAspartate Amino Transf (AST/SGOT) 2018-10-11 06:35:00* Test Item Value Reference Range Interpretation Comments Aspartate Amino Transf (AST/SGOT) (test code = Aspartate Amino Transf (AST/SGOT)) 11 5-34 [facility] AllenAlanine Aminotransferase (ALT/SGPT) 2018-10-11 06:35:00* Test Item Value Reference Range Interpretation Comments Alanine Aminotransferase (ALT/SGPT) (test code = 1742-6) 7 0-55 [facility] AllenTotal Ftnfoqu4849-70-42 06:35:00* Test Item Value Reference Range Interpretation Comments Total Protein (test code = 2885-2) 5.7 6.5-8.1 L [facility] AllenAlbumin2019-08-23 06:35:00* Test Item Value Reference Range Interpretation Comments Albumin (test code = 1751-7) 2.6 3.5-5.0 L [facility] AllenGlobulin2019-08-23 06:35:00* Test Item Value Reference Range Interpretation Comments Globulin (test code = 37050-7) 3.1 2.3-3.5 [facility] AllenAlbumin/Globulin Svort2868-22-44 06:35:00 * Test Item Value Reference Range Interpretation Comments Albumin/Globulin Ratio (test code = 1759-0) 0.8 0.8-2.0 [facility] AllenAlkaline Yewnsjawtfg0956-09-65 06:35:00* Test Item Value Reference Range Interpretation Comments Alkaline Phosphatase (test code = 6768-6) 104 40-150 [facility] AllenHIP RIGHT 2-3 VW (+/- PELVIS)2018-10-10 16:20:00 [facility] [address] [address] Patient Name: ROSY WEBB JR, V MR #: [id number] : 1945 Age/Sex: 73/M Req #: [id number] Adm Physician: AVTAR TIWARI MD, [facility] Ordered by: KARYN ANDRADE MD Report #: [id number] Location: MED/SURG Room/Bed: [facility] Procedure: [id number] DX/HIP RIGHT 2-3 VW (+/- PELVIS) Exam Date: Exam Time: REPORT STATUS: Signed Exam: Right hip 2 views Clinical history: Status post right hip pinning Comparison: Right hip series, October 08, 2018 Findings: The patient is status post ORIF of right neck fracture. The fracture fragments are fixated with 3 lag screws inserted through the right greater trochanter. The overall alignment appears anatomical. Soft tissue is unremarkable. Impression: 1. Status post right proximal hip ORIF with postoperative changes. Signed by: Dr. Joseph Larson MD on 10/10/2018 4:22 PM Dictated By: BRIAN LARSON MD 1622 Transcribed By : AUBREY on 10/10/18 1622 COPY TO: KARYN ANDRADE MD CHEST SINGLE (PORTABLE)2018-10-09 08:10:00 [address] [address] Patient Name: ROSY WEBB JR, V MR #: [id number] : 1945 Age/Sex: 73/M Req #: [id number] Adm Physician: AVTAR TIWARI MD, [facility] Ordered by: AVTAR TIWARI MD Report #: [id number] Location: MED/SURG Room/Bed: [facility] Procedure: [id number] DX/CHEST SINGLE (PORTABLE) Exam Date: 10/09/18 Exam Time: 0515 REPORT STATUS: Signed EXAMINATION: CHEST SINGLE (PORTABLE) INDICATION: Chronic ki dney disease COMPARISON: None FINDINGS: AP view TU BES and LINES: None. LUNGS: Lungs are well inflated. Lungs are clear. Th ere is mild prominence of the central pulmonary vasculature, consistent with p ulmonary venous congestion. PLEURA: No pleural effusion or pneumothorax. HEART AND MEDIASTINUM: The cardiomediastinal silhouette is unremarkable. Aortic arch calcifications. BONES AND SOFT TISSUES: No acute osseous l esion. Soft tissues are unremarkable. UPPER ABDOMEN: No free air under t he diaphragm. IMPRESSION: Central pulmonary vascular congestion. Signed by: Aashish Salinas DO on 10/09/2018 8:11 AM Dictated By: Naomi SALINAS DO 08 11 Transcribed By: AUBREY on 10/09/18 0811 COPY TO: AVTAR TIWARI MD , ABIM Hemoglobin A1c Dilrwxi2594-64-38 06:15:00* Test Item Value Reference Range Interpretation Comments Hemoglobin A1c Percent (test code = Hemoglobin A1c Percent) 10.8 4.0-7.0 [facility] AllenHemoglobin A1c Frrhocx0170-40-04 06:15:00 * Test Item Value Reference Range Interpretation Comments Hemoglobin A1c Percent (test code = Hemoglobin A1c Percent) 10.8 4.0-7.0 H [facility] AllenCHEST SINGLE (PORTABLE)2018-10-08 19:28:00 [facility] [address] [address] Patient Name: ROSY WEBB JR, V MR #: [id number] : 1945 Age/Sex: 73/M Req #: [id number] Adm Physician: CLARA YA MD Ordered by: ZAYDA MELGAR [employer] Report #: [id number] Location: [facility] Room/Bed: [address] [address] Procedure: [id number] DX/CHEST SINGLE (PORTABLE) Exam Date: 10/08/18 Exsachi Time: 1829 REPORT STATUS: Signed EXAMINATION: CHEST SINGLE (PORTABLE) COMPARISON: None INDICATI ON: pre op [id number] DISCUSSION: Frontal view of the est obtained at 1853 hours. HEART AND MEDIASTINUM: The heart is normal in size. The aorta is tortuous LINES: None. LUNGS: The lungs are well inflated and clear. No pneumonia or pulmonary edema. PLEURA: No pleural e ffusion or pneumothorax. BONES AND SOFT TISSUES: No focal osseous lesion. The soft tissues are normal. IMPRESSION: No acute cardiopulmonary dis ease. Signed by: Dr. Pily Land MD on 10/08/2018 7:29 PM Dict ated By: PILY LAND MD 28 Transcribed By: AUBREY on 10/08/181928 COPY TO: ZAYDA MELGAR [employer] Prothrombin Axvs2544-22-85 18:39:00* Test Item Value Reference Range Interpretation Comments Prothrombin Time (test code = 5902-2) 12.0 11.9-14.5 [facility] AllenProthromb Time International Ratio 2018-10-08 18:39:00* Test Item Value Reference Range Interpretation Comments Prothromb Time International Ratio (test code = 6301-6) 0.84 Oral Anticoagulant Therapy INR Values:1. Low Intensity Therapy 1.5 - 2.02 . Moderate Intensity Therapy 2.0 - 3.03. High Intensity Therapy(1) 2.5 - 3. 54. High Intensity Therapy(2) 3.0 - 4.05. Panic Value INR > 5.0 [facility] AllenActivated Partial Thromboplast Time 2018-10-08 18:39:00* Test Item Value Reference Range Interpretation Comments Activated Partial Thromboplast Time (test code = 24291-8) 29.2 23.8-35.5 [facility] AllenProthrombin Tjoi9149-56-32 18:39:00* Test Item Value Reference Range Interpretation Comments Prothrombin Time (test code = 5902-2) 12.0 11.9-14.5 [facility] AllenProthromb Time International Ratio 2018-10-08 18:39:00* Test Item Value Reference Range Interpretation Comments Prothromb Time International Ratio (test code = 6301-6) 0.84 Oral Anticoagulant Therapy INR Values:1. Low Intensity Therapy 1.5 - 2.02 . Moderate Intensity Therapy 2.0 - 3.03. High Intensity Therapy(1) 2.5 - 3. 54. High Intensity Therapy(2) 3.0 - 4.05. Panic Value INR > 5.0 [facility] AllenActivated Partial Thromboplast Time 2018-10-08 18:39:00* Test Item Value Reference Range Interpretation Comments Activated Partial Thromboplast Time (test code = 44976-6) 29.2 23.8-35.5 [facility] AllenHIP RIGHT 2-3 VW (+/- PELVIS)2018-10-08 17:19:00 [place] [address] Patient Name: ROSY WEBB JR, V MR #: [id number] : 1945 Age/Sex: 73/M Req #: [id number] Adm Physician: Ordered by: TEDDY TAPIA MD Report #: [id number] Location: ER Room/Bed: Procedure: 69 DX/HIP RIGHT 2-3 VW (+/- PELVIS) Exam Date: Exam Time: REPORT STATUS: Signed Hip complete Indication: Fall, right hip pain R HIP Technique: AP and lateral views of right hip obtained. Comparison: None Findings: Fracture of the proximal neck of the right femur without significant displace ment of fracture fragments. The femoral head remains articulated with the acet abulum. The acetabulum appears intact. The adjacent pubic rami appear intact. The left hip is intact and normally situated. No diastases the pubic symphy sis or sacroiliac joints. There are degenerative changes of the visualized lum bar spine. IMPRESSION: Fracture of the proximal neck of the right femur without dislocation of the femoral head. Signed by: Dr. Pily adorno MD on 10/08/2018 5:23 PM Dictated By: PILY LAND MD Electronica y Signed By: PILY LAND MD on 10/08/181722 Transcribed By: AUBREY on 10/08/181722 COPY TO: TEDDY TAPIA MD
--- OUTSIDE RECORDS SUMMARY | 2019-11-16 14:52 | XMS REPORT | Continuity of Care Document ---
Author Author [facility] t Organization [facility] Address [address] [place] [address] Phone Unavailable Care Team Providers Care Phys Assistant Name Role Phone CLAUDY MCCALL PCP Unavailable Sachi BOB Attphys Unavailable TEChloe Attphys Unavailable Sachi BOB YITAY Admphys Unavailable TEChloe QUINONEZ Admphys Unavailable Payers Payer Name Policy Type Policy Number Effective Date Expiration Date Jeanine Morrissey [id number] 2018 00:00:00 [facility] Problems Condition Name Condition Details Condition Category Status Onset Date Resolution Date Last Treatment Date Treating Clinician Comments Source Acute posterior epistaxis Acute posterior epistaxis Problem Active [facility] Anemia Anemia Problem Active [facility] Fracture of neck of right femur Fracture of femoral neck, right Pro blem Active [facility] Hyperkalemia Hyperkalemia Problem Active [facility] Hypertension Hypertension Problem Active [facility] Poorly controlled diabetes mellitus Poorly controlled diabetes m ellitus Problem Active [facility] Renal insufficiency Renal insufficiency Problem Active [facility] Allergies, Adverse Reactions, Alerts This patient has no known allergies or adverse reactions. Medications Ordered Medication Name Filled Medication Name Start Date Stop Da te Current Medication? Ordering Clinician Indication Dosage Frequency Signature (SIG) Comments Components Source Acetaminophen/Codeine Phosphate (Tylenol # 3*) 1 Ea Ta b Acetaminophen/Codeine Phosphate (Tylenol # 3*) 1 Ea Tab 2018-10-14 00:00:00 Yes Fermín Garrison Collection Agent 1 Every 6 Hours as needed for Moderate Pain (4-6) [facility] Nifedipine (Nifedipine Er) 30 Mg Tab.er.24 Nifedipine (Nifedipine Er) 30 Mg Tab.er.24 2018-10-14 00:00:00 Yes Gisell Garrison Collection Agent 30 Da angel [facility] Aspirin (Aspir 81) 81 Mg Tablet. Aspirin (Aspir 81) 81 Mg Tablet. Yes Daily [facility] Glipizide/Metformin Hcl (Glipizide-Metformin 5-500 Mg) 1 Each Tablet Glipizide/Metformin Hcl (Glipizide-Metformin 5-500 Mg) 1 Each Tablet Yes Twice Daily Before Meals [facility] Insulin Glargine (Lantus 3ML Pen) 100 Units/1 Ml Inj I nsulin Glargine (Lantus 3ML Pen) 100 Units/1 Ml Inj Yes 26 Bedtime [facility] Lisinopril 10 Mg Tablet Lisinopril 10 Mg Tablet Yes 40 Daily [facility] Pravastatin Sodium 20 Mg Tablet Pravastatin Sodium 20 Mg Tablet Yes 1 Bedtime [facility] Sodium Polystyrene Sulfonate (Kayexalate) 453.6 Gm Pow nathalia Sodium Polystyrene Sulfonate (Kayexalate) 453.6 Gm Powder Yes [facility] Ferrous Gluconate 324 Mg Tablet, Oral Ferrous Gluconate 32 4 Mg Tablet, Oral 2018-10-08 00:00:00 No Twice Daily With Chloe mataed [facility] Sulfamethoxazole/Trimethoprim (Sulfameth oxazole-Tmp Ds Tablet) 1 Each Tablet, Oral Sulfamethoxazole/Trimethoprim (Sulfameth oxazole-Tmp Ds Tablet) 1 Each Tablet, Oral 2016-07-11 00:00:00 No Twice A D sarai [facility] Procedures Procedure Date / Time Performed Performing Clinician [facility] e INSERTION OF INT FIX INTO R FEMUR SHAFT, PERC APPROACH 10-08 00:00:00 KARYN ANDRADE [facility] Encounters Start Date/Time End Date/Time Encounter Type Admission Type Attendi [facility] Facility Care Department Encounter ID Source 2019-05-07 16:44:00 2019-05-07 19:25:00 Departed Emergency Room [facility] [id number] [facility] 2018-10-08 18:39:00 2018-10-14 15:24:00 Discharged Inpatient 1 AVTAR TIWARI [facility] [id number] [facility] Results Test Description Test Time Test Comments Results Result Comments Source HIP LEFT 2-3 VW (+/- PELVIS) 2019-11-13 14:25:00 [place] [address] Patient Name: ROSY WEBB JR, V MR #: [id number] : 1945 Age/Sex: 74/M Req #: [id number] Adm Physician: TRUDY BOB MD Ordered by: KARYN ANDRADE MD Report #: [id number] Location: MED/SURG Room/Bed: [facility] Procedure: [id number] DX/HIP LEFT 2-3 VW (+/- PELVIS) Exam [...] ANDRADE MD CHEST SINGLE (PORTABLE) 2019-11-11 09:36:00 [place] [address] Patient Name: ROSY WEBB JR, V MR #: [id number] : 1945 Age/Sex: 74/M Req #: [id number] Adm Physician: TRUDY BOB MD Ordered by: TRUDY BOB MD Report #: [id number] Location: MED/SURG Room/Bed: [facility] Procedure: [id number] DX/CHEST SINGLE (PORTABLE) Exam Date: 11/11/19 Exam [...] BOB MD RENAL RETROPERITONEAL COMP 2019-11-11 09:25:00 [place] [id number] [place] [address] Patient Name: ROSY WEBB JR, V MR #: [id number] : 1945 Age/Sex: 74/M Req #: [id number] Adm Physician: TRUDY BOB MD Ordered by: BARBER BENJAMIN MD Report #: [id number] Location: MED/SURG Room/Bed: [facility] Procedure: [id number] US/US RENAL RETROPERITONEAL COMP Exam Date: 11/11/19 [...] on 11/11/19926 COPY TO: BARBER BENJAMIN MD [facility] (PORTABLE) 2019-11-10 15:12:00 [place] [address] Patient Name: ROSY WEBB JR, V MR #: [id number] : 1945 Age/Sex: 74/M Req #: [id number] Adm Physician: Ordered by: JANAY CARD MD Report #: [id number] Location: ER Room/Bed: Procedure: [id number] DX/CHEST SINGLE (PORTABLE) Exam Date: 11/10/19 Exam [...] By: AUBREY on 11/10/191513 COPY TO: JANAY CARD MD FEMUR 2 VIEWS MINIMUM LEFT 2019-11-10 15:04:00 [place] [address] Patient Name: ROSY WEBB JR, V MR #: [id number] : 1945 Age/Sex: 74/M Req #: [id number] Adm Physician: Ordered by: JANAY CARD MD Report #: [id number] Location: ER Room/Bed: Procedure: [id number] DX/FEMUR 2 VIEWS MINIMUM LEFT Exam Date: [...] LEFT 2-3 VW (+/- PELVIS) 2019-11-10 15:04:00 [place] [address] Patient Name: ROSY WEBB JR, V MR #: [id number] : 1945 Age/Sex: 74/M Req #: [id number] Adm Physician: Ordered by: JANAY CARD MD Report #: [id number] Location: ER Room/Bed: Procedure: DX/HIP LEFT 2-3 [...] MD KNEE LEFT THREE VIEWS 2019-11-10 15:04:00 [place] [address] Patient Name: ROSY WEBB JR, V MR #: [id number] : 1945 Age/Sex: 74/M Req #: [id number] Adm Physician: Ordered by: JANAY CARD MD Report #: [id number] Location: ER Room/Bed: Procedure: DX/KNEE LEFT THREE [...] LUIS F DUNCAN MD 10 Transcribed By: ABUREY on 11/10/191510 COPY TO: JANAY CARD MD CT CERVICAL SPINE WO 2019-11-10 14:35:00 [place] [address] Patient Name: ROSY WEBB JR, V MR #: [id number] : 1945 Age/Sex: 74/M Req #: [id number] Adm Physician: Ordered by: JANAY CARD MD Report #: [id number] Location: ER Room/Bed: Procedure: CT/CT CERVICAL SPINE [...] CARD MD CT BRAIN WO 2019-11-10 14:35:00 [place] [address] Patient Name: ROSY WEBB JR, V MR #: [id number] : 1945 Age/Sex: 74/M Req #: [id number] Adm Physician: Ordered by: JANAY CARD MD Report #: [id number] Location: ER Room/Bed: Procedure: [id number] CT/CT BRAIN WO Exam Date: 11/10/19 Exam [...] Test Item Bedside Glucose (test code = 47097-8) 319 70-120 H Meter ID: [id number] [facility] 2018-10-13 19:37:00* Test Item Value Reference Range Interpretation Comments Bedside Glucose (test code = 17901-4) 172 70-120 H Meter ID: [id number] [facility] SINGLE (PORTABLE)2018-10-12 06:39:00 [place] [address] Patient Name: ROSY WEBB JR, V MR #: [id number] : 1945 Age/Sex: 73/M Req #: [id number] Adm Physician: AVTAR TIWARI MD, ABIM Ordered by: AVTAR TIWARI MD Report #: [id number] Location: MED/SURG Room/Bed: [facility] Procedure: [id number] DX/CHEST SINGLE (PORTABLE) Exam Date: 10/12/18 Exam [...] 0 COPY TO: BE TIWARI MD, ABIM Amqgnweqbz1469-58-53 05:47:00* Test Item Value Reference Range Interpretation Comments Hemoglobin (test code = 25486-9) 9.4 14.0-18.0 L [facility] CenterHematocrit2019-08-24 05:47:00* Test Item Value Reference Range Interpretation Comments Hematocrit (test code = 4544-3) 28.3 38.2-49.6 L [facility] CenterHemoglobin2019-08-24 05:47:00* Test Item Value Reference Range Interpretation Comments Hemoglobin (test code = 96870-2) 9.4 14.0-18.0 L [facility] CenterHematocrit2019-08-24 05:47:00* Test Item Value Reference Range Interpretation Comments Hematocrit (test code = 4544-3) 28.3 38.2-49.6 L [facility] CenterCHE[facility] SINGLE ([facility]ABLE)2018-10-11 07:26:00 [place] [address] Patient Name: ROSY WEBB JR, V MR #: [id number] : 1945 Age/Sex: 73/M Req #: [id number] Adm Physician: AVTAR TIWARI MD, [facility] Ordered by: AVTAR TIWARI MD Report #: [id number] Location: MED/SURG Room/Bed: [facility] Procedure: [id number] DX/CHEST SINGLE (PORTABLE) Exam Date: 10/11/18 Exam [...] congestion. Signed by: Aashish Salinas DO on 10/11/2018 7:27 AM Dictated By: AASHISH SALINAS DO 6 Tr anscribed By: AUBREY on 10/11/18726 COPY TO: AVTAR TIWARI MD, ABIM White Blood Sviol2487-77-71 06:51:00* Test Item Value Reference Range Interpretation Comments White Blood Count (test code = 6690-2) 9.46 4.8-10.8 [facility] CenterRed Blood Mzhdc7493-83-96 06:51:00* Test Item Value Reference Range Interpretation Comments Red Blood Count (test code = 789-8) 3.43 4.3-5.7 L [facility] CenterMean Corpuscular Blehzr2316-90-45 06:51:00* Test Item Value Reference Range Interpretation Comments Mean Corpuscular Volume (test code = 787-2) 93.9 81-99 [facility] CenterMean Corpuscular Pahsaswnyb0904-15-93 06:51:00* Test Item Value Reference Range Interpretation Comments Mean Corpuscular Hemoglobin (test code = 785-6) 30.6 28-32 [facility] CenterMean Corpuscular Hemoglobin Concent 2018-10-11 06:51:00* Test Item Value Reference Range Interpretation Comments Mean Corpuscular Hemoglobin Concent (test code = 786-4) 32.6 31-35 [facility] CenterRed Cell Distribution Ztvht5434-09-23 06:51:00* Test Item Value Reference Range Interpretation Comments Red Cell Distribution Width (test code = 11435-3) 15.5 11.7 -14.4 H [facility] CenterPlatelet Tshcu9751-58-73 06:51:00* Test Item Value Reference Range Interpretation Comments Platelet Count (test code = 777-3) 241 140-360 [facility] CenterNeutrophils (%) (Auto)2018-10-11 06:51:00 * Test Item Value Reference Range Interpretation Comments Neutrophils (%) (Auto) (test code = 10985-3) 76.8 38.7-80.0 [facility] CenterLymphocytes (%) (Auto)2018-10-11 06:51:00 * Test Item Value Reference Range Interpretation Comments Lymphocytes (%) (Auto) (test code = 736-9) 9.1 18.0-39.1 L [facility] CenterMonocytes (%) (Auto)2018-10-11 06:51:00* Test Item Value Reference Range Interpretation Comments Monocytes (%) (Auto) (test code = 5905-5) 12.7 4.4-11.3 H [facility] CenterEosinophils (%) (Auto)2018-10-11 06:51:00 * Test Item Value Reference Range Interpretation Comments Eosinophils (%) (Auto) (test code = 713-8) 0.7 0.0-6.0 [facility] CenterBasophils (%) (Auto)2018-10-11 06:51:00* Test Item Value Reference Range Interpretation Comments Basophils (%) (Auto) (test code = 706-2) 0.3 0.0-1.0 [facility] CenterIM GRANULOCYTES %2018-10-11 06:51:00* Test Item Value Reference Range Interpretation Comments IM GRANULOCYTES % (test code = IM GRANULOCYTES %) 0.4 0.0- 1.0 [facility] CenterNeutrophils # (Auto)2018-10-11 06:51:00* Test Item Value Reference Range Interpretation Comments Neutrophils # (Auto) (test code = 751-8) 7.3 2.1-6.9 H [facility] CenterLymphocytes # (Auto)2018-10-11 06:51:00* Test Item Value Reference Range Interpretation Comments Lymphocytes # (Auto) (test code = 53244-2) 0.9 1.0-3.2 L [facility] CenterMonocytes # (Auto)2018-10-11 06:51:00* Test Item Value Reference Range Interpretation Comments Monocytes # (Auto) (test code = 742-7) 1.2 0.2-0.8 H [facility] CenterEosinophils # (Auto)2018-10-11 06:51:00* Test Item Value Reference Range Interpretation Comments Eosinophils # (Auto) (test code = 711-2) 0.1 0.0-0.4 [facility] CenterBasophils # (Auto)2018-10-11 06:51:00* Test Item Value Reference Range Interpretation Comments Basophils # (Auto) (test code = 704-7) 0.0 0.0-0.1 [facility] CenterAbsolute Immature Granulocyte (auto 2018-10-11 06:51:00* Test Item Value Reference Range Interpretation Comments Absolute Immature Granulocyte (auto (emile t code = Absolute Immature Granulocyte (auto) 0.04 0-0.1 [facility] CenterWhite Blood Tsdrh2794-63-34 06:51:00* Test Item Value Reference Range Interpretation Comments White Blood Count (test code = 6690-2) 9.46 4.8-10.8 [facility] CenterRed Blood Zedsz0986-21-15 06:51:00* Test Item Value Reference Range Interpretation Comments Red Blood Count (test code = 789-8) 3.43 4.3-5.7 L [facility] CenterMean Corpuscular Mpltch0006-57-32 06:51:00* Test Item Value Reference Range Interpretation Comments Mean Corpuscular Volume (test code = 787-2) 93.9 81-99 [facility] CenterMean Corpuscular Vokojsizhm6674-67-70 06:51:00* Test Item Value Reference Range Interpretation Comments Mean Corpuscular Hemoglobin (test code = 785-6) 30.6 28-32 [facility] CenterMean Corpuscular Hemoglobin Concent 2018-10-11 06:51:00* Test Item Value Reference Range Interpretation Comments Mean Corpuscular Hemoglobin Concent (test code = 786-4) 32.6 31-35 [facility] CenterRed Cell Distribution Extrv4035-80-81 06:51:00* Test Item Value Reference Range Interpretation Comments Red Cell Distribution Width (test code = 69184-2) 15.5 11.7 -14.4 H [facility] CenterPlatelet Yetrv4863-71-79 06:51:00* Test Item Value Reference Range Interpretation Comments Platelet Count (test code = 777-3) 241 140-360 [facility] CenterNeutrophils (%) (Auto)2018-10-11 06:51:00 * Test Item Value Reference Range Interpretation Comments Neutrophils (%) (Auto) (test code = 68181-8) 76.8 38.7-80.0 [facility] CenterLymphocytes (%) (Auto)2018-10-11 06:51:00 * Test Item Value Reference Range Interpretation Comments Lymphocytes (%) (Auto) (test code = 736-9) 9.1 18.0-39.1 L [facility] CenterMonocytes (%) (Auto)2018-10-11 06:51:00* Test Item Value Reference Range Interpretation Comments Monocytes (%) (Auto) (test code = 5905-5) 12.7 4.4-11.3 H [facility] CenterEosinophils (%) (Auto)2018-10-11 06:51:00 * Test Item Value Reference Range Interpretation Comments Eosinophils (%) (Auto) (test code = 713-8) 0.7 0.0-6.0 [facility] CenterBasophils (%) (Auto)2018-10-11 06:51:00* Test Item Value Reference Range Interpretation Comments Basophils (%) (Auto) (test code = 706-2) 0.3 0.0-1.0 [facility] CenterIM GRANULOCYTES %2018-10-11 06:51:00* Test Item Value Reference Range Interpretation Comments IM GRANULOCYTES % (test code = IM GRANULOCYTES %) 0.4 0.0- 1.0 [facility] CenterNeutrophils # (Auto)2018-10-11 06:51:00* Test Item Value Reference Range Interpretation Comments Neutrophils # (Auto) (test code = 751-8) 7.3 2.1-6.9 H [facility] CenterLymphocytes # (Auto)2018-10-11 06:51:00* Test Item Value Reference Range Interpretation Comments Lymphocytes # (Auto) (test code = 53998-8) 0.9 1.0-3.2 L [facility] CenterMonocytes # (Auto)2018-10-11 06:51:00* Test Item Value Reference Range Interpretation Comments Monocytes # (Auto) (test code = 742-7) 1.2 0.2-0.8 H [facility] CenterEosinophils # (Auto)2018-10-11 06:51:00* Test Item Value Reference Range Interpretation Comments Eosinophils # (Auto) (test code = 711-2) 0.1 0.0-0.4 [facility] CenterBasophils # (Auto)2018-10-11 06:51:00* Test Item Value Reference Range Interpretation Comments Basophils # (Auto) (test code = 704-7) 0.0 0.0-0.1 [facility] CenterAbsolute Immature Granulocyte (auto 2018-10-11 06:51:00* Test Item Value Reference Range Interpretation Comments Absolute Immature Granulocyte (auto (emile t code = Absolute Immature Granulocyte (auto) 0.04 0-0.1 [facility] Campusodium Pumeq3797-24-49 06:35:00* Test Item Value Reference Range Interpretation Comments Sodium Level (test code = 2951-2) 137 136-145 [facility] CenterPotassium Luslr0266-01-32 06:35:00* Test Item Value Reference Range Interpretation Comments Potassium Level (test code = 2823-3) 4.6 3.5-5.1 [facility] CenterChloride Nxicw7392-45-53 06:35:00* Test Item Value Reference Range Interpretation Comments Chloride Level (test code = 2075-0) 105 98-107 [facility] CenterCarbon Dioxide Qlgfn4277-74-45 06:35:00* Test Item Value Reference Range Interpretation Comments Carbon Dioxide Level (test code = 2028-9) 23 22-29 [facility] CenterAnion Uod8037-97-07 06:35:00* Test Item Value Reference Range Interpretation Comments Anion Gap (test code = 33947-2) 13.6 8-16 [facility] CenterBlood Urea Jswjukan1732-12-71 06:35:00* Test Item Value Reference Range Interpretation Comments Blood Urea Nitrogen (test code = 3094-0) 36 7-26 H [facility] CenterCreatinine2019-08-23 06:35:00* Test Item Value Reference Range Interpretation Comments Creatinine (test code = 2160-0) 1.59 0.72-1.25 H [facility] CenterBUN/Creatinine Cevfx7883-76-73 06:35:00* Test Item Value Reference Range Interpretation Comments BUN/Creatinine Ratio (test code = 3097-3) 23 6- [facility] CenterEstimat Glomerular Filtration Rate 2018-10-11 06:35:00* Test Item Value Reference Range Interpretation Comments Estimat Glomerular Filtration Rate (test code = 309986340) 43 >60 L Ranges were taken from the National Kidney Disease Education Program and the [employer] community healthal [employer] literature.Reference ranges:60 or greater: Uuyqxz26-83 ( for 3 consecutive months): Chronic kidney disease 15 or less: Kidney failurePalestine Regional Medical CenterGlucose Sffiq2683-11-52 06:35:00* Test Item Value Reference Range Interpretation Comments Glucose Level (test code = FDG3008) 243 74-118 H [facility] CenterCalcium Rpcvl2741-01-48 06:35:00* Test Item Value Reference Range Interpretation Comments Calcium Level (test code = 46924-7) 8.2 8.4-10.2 L [facility] CenterPhosphorus Obdiw0911-34-75 06:35:00* Test Item Value Reference Range Interpretation Comments Phosphorus Level (test code = HMZ7361) 3.9 2.3-4.7 [facility] CenterMagnesium Izsxw4192-74-67 06:35:00* Test Item Value Reference Range Interpretation Comments Magnesium Level (test code = 57935-5) 2.3 1.3-2.1 H [facility] CenterTotal Epmpdzzyf9440-11-48 06:35:00* Test Item Value Reference Range Interpretation Comments Total Bilirubin (test code = 1975-2) 0.3 0.2-1.2 [facility] CenterAspartate Amino Transf (AST/SGOT) 2018-10-11 06:35:00* Test Item Value Reference Range Interpretation Comments Aspartate Amino Transf (AST/SGOT) (test code = Aspartate Amino Transf (AST/SGOT)) 11 5-34 [facility] CenterAlanine Aminotransferase (ALT/SGPT) 2018-10-11 06:35:00* Test Item Value Reference Range Interpretation Comments Alanine Aminotransferase (ALT/SGPT) (test code = 1742-6) 7 0-55 [facility] CenterTotal Mmmslot7445-80-59 06:35:00* Test Item Value Reference Range Interpretation Comments Total Protein (test code = 2885-2) 5.7 6.5-8.1 L [facility] CenterAlbumin2019-08-23 06:35:00* Test Item Value Reference Range Interpretation Comments Albumin (test code = 1751-7) 2.6 3.5-5.0 L [facility] CenterGlobulin2019-08-23 06:35:00* Test Item Value Reference Range Interpretation Comments Globulin (test code = 47597-7) 3.1 2.3-3.5 [facility] CenterAlbumin/Globulin Cugvb1724-61-16 06:35:00 * Test Item Value Reference Range Interpretation Comments Albumin/Globulin Ratio (test code = 1759-0) 0.8 0.8-2.0 [facility] CenterAlkaline Qviutzhyhml6057-20-53 06:35:00* Test Item Value Reference Range Interpretation Comments Alkaline Phosphatase (test code = 6768-6) 104 40-150 [facility]odium Blked4091-20-38 06:35:00* Test Item Value Reference Range Interpretation Comments Sodium Level (test code = 2951-2) 137 136-145 [facility] CenterPotassium Btwih9347-36-51 06:35:00* Test Item Value Reference Range Interpretation Comments Potassium Level (test code = 2823-3) 4.6 3.5-5.1 [facility] CenterChloride Igxln9121-61-72 06:35:00* Test Item Value Reference Range Interpretation Comments Chloride Level (test code = 2075-0) 105 98-107 [facility] CenterCarbon Dioxide Umggm0172-87-54 06:35:00* Test Item Value Reference Range Interpretation Comments Carbon Dioxide Level (test code = 2028-9) 23 22-29 [facility] CenterAnion Inw4506-52-71 06:35:00* Test Item Value Reference Range Interpretation Comments Anion Gap (test code = 98887-6) 13.6 8-16 [facility] CenterBlood Urea Rzfkiitt3435-76-13 06:35:00* Test Item Value Reference Range Interpretation Comments Blood Urea Nitrogen (test code = 3094-0) 36 7-26 H [facility] CenterCreatinine2019-08-23 06:35:00* Test Item Value Reference Range Interpretation Comments Creatinine (test code = 2160-0) 1.59 0.72-1.25 H [facility] CenterBUN/Creatinine Erwap7798-48-12 06:35:00* Test Item Value Reference Range Interpretation Comments BUN/Creatinine Ratio (test code = 3097-3) 23 6-25 [facility] CenterEstimat Glomerular Filtration Rate 2018-10-11 06:35:00* Test Item Value Reference Range Interpretation Comments Estimat Glomerular Filtration Rate (test code = 701643336) 43 >60 L Ranges were taken from the National Kidney Disease Education Program and the [employer] community healthal Kid[employer] Foundation literature.Reference ranges:60 or greater: Bpuqdu01-81 ( for 3 consecutive months): Chronic kidney disease 15 or less: Kidney failurePalestine Regional Medical CenterGlucose Avgtg7374-45-02 06:35:00* Test Item Value Reference Range Interpretation Comments Glucose Level (test code = OVR0532) 243 74-118 H [facility] CenterCalcium Gbbyl6537-43-59 06:35:00* Test Item Value Reference Range Interpretation Comments Calcium Level (test code = 43717-1) 8.2 8.4-10.2 L [facility] CenterPhosphorus Fyrmo7011-32-06 06:35:00* Test Item Value Reference Range Interpretation Comments Phosphorus Level (test code = BEV5909) 3.9 2.3-4.7 [facility] CenterMagnesium Nrxsw1143-11-72 06:35:00* Test Item Value Reference Range Interpretation Comments Magnesium Level (test code = 52604-1) 2.3 1.3-2.1 H [facility] CenterTotal Rhyqalcpy4629-42-24 06:35:00* Test Item Value Reference Range Interpretation Comments Total Bilirubin (test code = 1975-2) 0.3 0.2-1.2 [facility] CenterAspartate Amino Transf (AST/SGOT) 2018-10-11 06:35:00* Test Item Value Reference Range Interpretation Comments Aspartate Amino Transf (AST/SGOT) (test code = Aspartate Amino Transf (AST/SGOT)) 11 5-34 [facility] CenterAlanine Aminotransferase (ALT/SGPT) 2018-10-11 06:35:00* Test Item Value Reference Range Interpretation Comments Alanine Aminotransferase (ALT/SGPT) (test code = 1742-6) 7 0-55 [facility] CenterTotal Jcveydm6194-29-33 06:35:00* Test Item Value Reference Range Interpretation Comments Total Protein (test code = 2885-2) 5.7 6.5-8.1 L [facility] CenterAlbumin2019-08-23 06:35:00* Test Item Value Reference Range Interpretation Comments Albumin (test code = 1751-7) 2.6 3.5-5.0 L [facility] CenterGlobulin2019-08-23 06:35:00* Test Item Value Reference Range Interpretation Comments Globulin (test code = 87992-6) 3.1 2.3-3.5 [facility]obulin [id number] 06:35:00 * Test Item Value Reference Range Interpretation Comments Albumin/Globulin Ratio (test code = 1759-0) 0.8 0.8-2.0 [facility] CenterAlkaline Vkzacnndxrl7813-74-00 06:35:00* Test Item Value Reference Range Interpretation Comments Alkaline Phosphatase (test code = 6768-6) 104 40-150 [facility] CenterHIP RIGHT 2-3 VW (+/- PELVIS)2018-10-10 16:20:00 [facility] [address] [address] Patient Name: ROSY WEBB JR, V MR #: [id number] : 1945 Age/Sex: 73/M Req #: [id number] Adm Physician: AVTAR TIWARI MD, [facility] Ordered by: KARYN ANDRADE MD Report #: [id number] Location: MED/SURG Room/Bed: [facility] Procedure: [id number] DX/HIP RIGHT 2-3 VW (+/- PELVIS) Exam [...] ORIF with postoperative changes. Signed by: Dr. Jsoeph Larson MD on 10/10/2018 4:22 PM Dictated By: BRIAN LARSON MD 1622 Transcribed By : AUBREY on 10/10/18 1622 COPY TO: KARYN ANDRADE MD CHEST SINGLE (PORTABLE)2018-10-09 08:10:00 [address] [address] Patient Name: ROSY WEBB JR, V MR #: [id number] : 1945 Age/Sex: 73/M Req #: [id number] Adm Physician: AVTAR TIWARI MD, ABIM Ordered by: AVTAR TIWARI MD Report #: [id number] Location: MED/SURG Room/Bed: [facility] Procedure: [id number] DX/CHEST SINGLE (PORTABLE) Exam Date: 10/09/18 Exam [...] Central pulmonary vascular congestion. Signed by: Aashish Salnias DO on 10/09/2018 8:11 AM Dictated By: Naomi SALINAS DO 08 11 Transcribed By: AUBREY on 10/09/18 0811 COPY TO: AVTAR TIWARI MD , ABIM Hemoglobin A1c [id number] 06:15:00* Test Item Value Reference Range Interpretation Comments Hemoglobin A1c Percent (test code = Hemoglobin A1c Percent) 10.8 4.0-7.0 H [facility] CenterHemoglobin A1c [id number] 06:15:00 * Test Item Value Reference Range Interpretation Comments Hemoglobin A1c Percent (test code = Hemoglobin A1c Percent) 10.8 4.0-7.0 H [facility] CenterCHE[facility]LE ([facility]ABLE)2018-10-08 19:28:00 [facility] [address] [address] Patient Name: ROSY WEBB JR, V MR #: [id number] : 1945 Age/Sex: 73/M Req #: [id number] Adm Physician: CLARA YA MD Ordered by: ZAYDA MELGAR 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 TECHNICIAN Report #: [id number] Location: [facility] Room/Bed: [address] [address] Procedure: [id number] DX/CHEST SINGLE (PORTABLE) Exam [...] AUBREY on 10/08/181928 COPY TO: ZAYDA MELGAR VASCULAR TECHNICIAN Prothrombin [id number] 18:39:00* Test Item Value Reference Range Interpretation Comments Prothrombin Time (test code = 5902-2) 12.0 11.9-14.5 [facility] CenterProthromb Time International Ratio 2018-10-08 18:39:00* Test Item Value Reference Range Interpretation Comments Prothromb Time International Ratio (test code = 6301-6) 0.84 Oral Anticoagulant Therapy INR Values:1. Low Intensity Therapy 1.5 - 2.02 . Moderate Intensity Therapy 2.0 - 3.03. High Intensity Therapy(1) 2.5 - 3. 54. High Intensity Therapy(2) 3.0 - 4.05. Panic Value INR > 5.0 [facility] CenterActivated Partial Thromboplast Time 2018-10-08 18:39:00* Test Item Value Reference Range Interpretation Comments Activated Partial Thromboplast Time (test code = 40686-6) 29.2 23.8-35.5 [facility] CenterProthrombin [id number] 18:39:00* Test Item Value Reference Range Interpretation Comments Prothrombin Time (test code = 5902-2) 12.0 11.9-14.5 [facility] CenterProthromb Time International Ratio 2018-10-08 18:39:00* Test Item Value Reference Range Interpretation Comments Prothromb Time International Ratio (test code = 6301-6) 0.84 Oral Anticoagulant Therapy INR Values:1. Low Intensity Therapy 1.5 - 2.02 . Moderate Intensity Therapy 2.0 - 3.03. High Intensity Therapy(1) 2.5 - 3. 54. High Intensity Therapy(2) 3.0 - 4.05. Panic Value INR > 5.0 [facility] CenterActivated Partial Thromboplast Time 2018-10-08 18:39:00* Test Item Value Reference Range Interpretation Comments Activated Partial Thromboplast Time (test code = 17966-5) 29.2 23.8-35.5 [facility] CenterHIP RIGHT 2-3 VW (+/- PELVIS)2018-10-08 17:19:00 [address] [address] Patient Name: ROSY WEBB JR, V MR #: [id number] : 1945 Age/Sex: 73/M Req #: [id number] Adm Physician: Ordered by: TEDDY TAPIA MD Report #: [id number] Location: ER Room/Bed: Procedure: 69 DX/HIP RIGHT [...]
--- NOTE | 2019-11-16 19:00 | NUR ---
RECEIVED PATIENT IN BEDSIDE SHIFT REPORT. PATIENT RESTING IN BED AT THIS TIME. NO PAIN REPORTED. NO S&S OF DISTRESS NOTED. BED LOCKED IN LOWEST POSITION, SIDE RAILS UPX2, CALL LIGHT IN REACH.
--- NOTE | 2019-11-16 19:09 | NUR ---
Report given to oncoming nurse of patient's status. Resting in bed. no s/s of acute distress noted. Side rails upx2, call light within reach.
[2019-11-16] MEDS: TAMSULOSIN HCL 0.4 MG CAP PO SCH (21:14)
[2019-11-16] MEDS: CRESTOR 10MG PO SCH (21:14)
--- NOTE | 2019-11-16 23:29 | Progress Note ---
DATE: 11/16/2019 SUBJECTIVE: Left hip pain after physical therapy. OBJECTIVE: VITAL SIGNS: Temperature 97.9, pulse 73, respiratory rate 16, blood pressure 158/67. GENERAL: No acute distress. SKIN: No rash. LUNGS: Clear. HEART: Regular rate and rhythm. Normal S1 and S2. GI: Abdomen is soft, nondistended. NEUROLOGIC: Alert and oriented x3. PSYCHIATRIC: No hallucination. LABORATORY DATA: Hemoglobin 8.6, creatinine 2.3. ASSESSMENT AND PLAN: 1. Left hip fracture, postop day #3 open reduction and internal fixation with acute blood loss anemia. The patient's hemoglobin responded appropriately to 1 unit of packed red blood cells. We will continue physical therapy and pain control. 2. Stage 3 chronic kidney disease, stable. Nephrology is following. 3. Iron deficiency anemia. Iron infusion. 4. Hypertension, a little better. We will continue carvedilol and nifedipine. 5. Diabetes. Continue sliding scale. 6. Gastrointestinal and deep venous thrombosis prophylaxis. Continue Xarelto. 7. Disposition to long term facility for skilled physical therapy. MD JOSEP Bernard/ABBY /[id number]
[2019-11-17] VITALS (8 sets, daily range): BP systolic 149–168; BP diastolic 63–88
[2019-11-17] MEDS: HYDROCODONE/APAP 5MG-325MG TAB PO PRN ×2 (04:35→11:45)
--- NOTE | 2019-11-17 04:41 | NUR ---
SMALL AMOUNT OF SEROSANGUINEOUS DRAINAGE NOTED TO PROXIMAL END OF DRESSING. CIRCLED AT THIS TIME.
--- NOTE | 2019-11-17 07:00 | NUR ---
BEDSIDE SHIFT REPORT RECEIVED FROM RL FUENTES. PT DENIES FURTHER NEEDS AT THIS TIME.
[2019-11-17] MEDS: INSULIN LISPRO 100 UNIT/1 ML 3ML VIAL SQ SCH ×4 (07:30→21:18)
[2019-11-17] MEDS: RIVAROXABAN 10 MG TABLET PO SCH (08:16)
[2019-11-17] MEDS: CARVEDILOL 3.125 MG TAB PO SCH ×2 (08:16→16:55)
[2019-11-17] MEDS: NIFEDIPINE CR 30 MG TAB PO SCH ×2 (08:19→16:55)
[2019-11-17] MEDS: SODIUM BICARBONATE 650 MG TAB PO SCH ×3 (08:19→21:06)
--- NOTE | 2019-11-17 08:42 | NUR ---
COMPLETED PASRR, COVID FORM, RTF AND WAS ABLE TO FAX UPDATES TO FACILITY. CONTACTED KARMA AT FACILITY, STATUS IS STILL PENDING.
[2019-11-17] MEDS: CEFTRIAXONE SOD 1 GM/NS 50 ML 50 ML IV SCH (10:17)
--- NOTE | 2019-11-17 19:04 | NUR ---
Received the pt in report.aox3.no resp.distress.bed locked and in lowest position.phone and call light within reach.instructed to call for assistance as needed.
[2019-11-17] MEDS: TAMSULOSIN HCL 0.4 MG CAP PO SCH (21:06)
[2019-11-17] MEDS: CRESTOR 10MG PO SCH (21:06)
--- NOTE | 2019-11-17 22:30 | Progress Note ---
DATE: 11/17/2019 SUBJECTIVE: Left hip pain. OBJECTIVE: VITAL SIGNS: Temperature 98.3, pulse 69, respiratory rate 18, blood pressure 149/64. GENERAL: No acute distress. SKIN: No rash. LUNGS: Clear. HEART: Regular rate and rhythm. Normal S1 and S2. GI: Abdomen is soft and nondistended. NEUROLOGIC: Alert and oriented x3. PSYCHIATRIC: No hallucination. LABORATORY DATA: No new labs. ASSESSMENT/PLAN: 1. Left hip fracture, postop day #4, open reduction and internal fixation. The patient had acute blood loss anemia, status post 1 unit of packed red blood cells transfusion. We will continue physical therapy and pain control. 2. Stage 3 chronic kidney disease, stable. 3. Iron deficiency anemia, status post iron infusion. 4. Hypertension and diabetes are stable. 5. Gastrointestinal and deep venous thrombosis prophylaxis. Xarelto. 6. Disposition. Still waiting for [facility] facility placement. MD JOSEP Bernard/ABBY /[id number]
[2019-11-18] VITALS: BP 153/66
[2019-11-18 04:00] VITALS: BP 167/69
--- NOTE | 2019-11-18 05:46 | NUR ---
Dressing changed after administering pain medication norco 5 mg po.pt tolerated well.rested well during night.
--- NOTE | 2019-11-18 07:00 | NUR ---
BEDSIDE SHIFT REPORT RECEIVED FROM RL FUENTES. PT DENIES FURTHER NEEDS AT THIS TIME.
[2019-11-18] MEDS: INSULIN LISPRO 100 UNIT/1 ML 3ML VIAL SQ SCH ×2 (07:30→11:30)
[2019-11-18 08:00] VITALS: BP 154/64
[2019-11-18] MEDS: NIFEDIPINE CR 30 MG TAB PO SCH (08:21)
[2019-11-18] MEDS: RIVAROXABAN 10 MG TABLET PO SCH (08:21)
[2019-11-18] MEDS: CARVEDILOL 3.125 MG TAB PO SCH (08:21)
[2019-11-18] MEDS: SODIUM BICARBONATE 650 MG TAB PO SCH (08:22)
[2019-11-18] MEDS: ERGOCALCIFEROL 50,000 UNIT CAP PO SCH (08:23)
[2019-11-18] MEDS: CEFTRIAXONE SOD 1 GM/NS 50 ML 50 ML IV SCH (09:20)
[2019-11-18 09:32] VITALS: BP 154/64
[2019-11-18] MEDS: HYDROCODONE/APAP 5MG-325MG TAB PO PRN (09:45)
--- NOTE | 2019-11-18 10:53 | NUR ---
[facility] FACILITY DISCHARGE INFORMATION PATIENT HAS BEEN ACCEPTED TO: NAME: RAKEL DURAND JACKSON ADDRESS:[id number] [facility] ACCEPTING MD: FAYE ROOM: [address] NURSE CALL REPORT TO: [phone] IMM SIGNED AND OBTAINED (if applicable): IMM THE FOLLOWING DOCUMENTS MUST ACCOMPANY PATIENT FOR TRANSFER: COPIED CHART: PACKET
[2019-11-18 12:13] VITALS: BP 156/64
--- NOTE | 2019-11-18 15:40 | NUR ---
[facility] HERE TO TRANSPORT PT TO SNF. PT'S DENIES FURTHER NEEDS.
[2019-11-18] MEDS ORDERED: CARVEDILOL 3.125 MG TAB PO SCH (17:00)
--- NOTE | 2019-11-18 22:38 | Discharge Summary ---
PRIMARY CARE DOCTOR: Dr. Maverick Parada FINAL DIAGNOSIS: Left hip fracture. SECONDARY DIAGNOSES: 1. Diabetes. 2. Stage 3 chronic kidney disease. 3. Hypertension. CONSULTANTS: 1. Dr. Knapp, Nephrology. 2. Dr. Lewis Carrillo, Orthopedic surgeon. PROCEDURES/STUDIES PERFORMED: 1. ORIF. 2. 1 unit of packed red blood cell transfusion. 3. Renal ultrasound was unremarkable. Head CT and C-spine CT did not show any acute disease. HISTORY: Per dictated H and P. HOSPITAL COURSE: The patient underwent uneventful ORIF. After the surgery, he did have acute blood loss anemia, required 1 unit of packed red blood cells, which brought his hemoglobin from 7.6 to 8.6. The patient's stage 3 kidney disease remains stable. He may have a little bit of mild CRISTINE on top of that. His creatinine slowly got better back down to his baseline with a little bit of IV fluid. The patient is on Xarelto for DVT prophylaxis. The patient was seen and examined today. I have updated his primary care doctor and also the accepting correction doctor. He will be going to [facility] for skilled physical therapy. It took 31 minutes total to discharge this patient. CONDITION ON DISCHARGE: Improved. DISCHARGE MEDICATIONS: Please see medication reconciliation form. MD JOSEP Bernard/ABBY /[id number] MTDD
--- NOTE | 2019-11-19 01:03 | Operative Report ---
DATE OF PROCEDURE: 11/13/2019 SURGEON: Lewis Carrillo MD PREOPERATIVE DIAGNOSIS: Left two-part intertrochanteric hip fracture. POSTOPERATIVE DIAGNOSIS: Left two-part intertrochanteric hip fracture. OPERATION AND PROCEDURE PERFORMED: 1. The patient underwent a closed reduction of the left intertrochanteric femur fracture. 2. Placement of a left short gamma nail. TRANSIT BUS DRIVER: There was no assistant auditor. ANESTHESIA: General endotracheal intubation anesthesia. IV FLUIDS: Per the anesthesia record. BRIEF DESCRIPTION OF THE PATIENT'S OPERATIVE PROCEDURE: Mr. Verduzco was taken to the operating room and placed in a supine position on the operating room table. Following induction of general anesthesia as well as endotracheal intubation, the patient's left lower extremity was placed in a well-padded longitudinal traction and the right lower extremity was placed in a well-padded lithotomy position. Fluoroscopic evaluation of the left hip demonstrated a displaced two-part intertrochanteric hip fracture. The leg was manipulated under anesthesia and an acceptable reduction was achieved. The patient's thigh and flank were then prepped and draped in standard surgical fashion. The case was begun by creating trochanter. This incision was carried through the skin only. Blunt dissection was used to deepen the incision and the tensor fascia anand and gluteus henna fascia were then incised in line with the skin incision. A cannulated awl was placed on the tip of the trochanter and visualized using fluoroscopy. The awl was then advanced within the proximal femur. A guidewire was then passed within the medullary canal of femur. A one-step reamer was then used to create a channel for the implant. The implant was chosen and inserted without difficulty. A second incision was created on the lateral aspect of the femur. This incision was again carried through the skin only. Blunt dissection was deepened to the level of the tensor fascia anand, which was then divided in line with the skin incision. The lateral aspect of the femur was exposed. The guide for the compression screw was advanced against the lateral aspect of the femur and a guide pin was advanced from lateral to medial through the neck into the head of the femur. The position of the guide pin was checked fluoroscopically and found to be in an appropriate position. Measurements were taken and a reamer was used to create a channel for the implant. The compression screw was then inserted across the fracture site. Compression was then placed across the fracture site and the compression screw was then locked to allow for further compression, but to prevent rotation. The nail was then locked distally with a single screw. All wounds were copiously irrigated. The wounds were then closed in a multilayer fashion. Sterile dressings were applied and the patient was then awakened and taken to the postanesthesia care unit in stable condition. MD LILLIE Richards/ABBY /[id number]
== END 2019-11-18 15:45 | DRG 481 ==
LOC: ER 13:55 → ERHOLD 15:47 → MED/SURG3 18:01 → MED/SURG 22:17
PROVIDERS: ADMIT Internal Medicine; ATTEND Internal Medicine
PROC: 0QS706Z Reposition Left Upper Femur with Intramedullary Internal Fixation Device, Open Approach (ICD-10-PCS; principal; 2019-11-13 12:00)
PROC: 30233N1 Transfusion of Nonautologous Red Blood Cells into Peripheral Vein, Percutaneous Approach (ICD-10-PCS; 2019-11-15)
DX: S72.142A Displaced intertrochanteric fracture of left femur, initial encounter for closed fracture (principal); E87.1 Hypo-osmolality and hyponatremia; N17.9 Acute kidney failure, unspecified; I16.9 Hypertensive crisis, unspecified; E87.2 Acidosis; D62 Acute posthemorrhagic anemia; I13.10 Hypertensive heart and chronic kidney disease without heart failure, with stage 1 through stage 4 chronic kidney disease, or unspecified chronic kidney disease; N18.3 Chronic kidney disease, stage 3 (moderate); E11.22 Type 2 diabetes mellitus with diabetic chronic kidney disease; E78.5 Hyperlipidemia, unspecified; W01.0XXA Fall on same level from slipping, tripping and stumbling without subsequent striking against object, initial encounter; E11.65 Type 2 diabetes mellitus with hyperglycemia; N40.0 Benign prostatic hyperplasia without lower urinary tract symptoms; D50.9 Iron deficiency anemia, unspecified; Z11.59 Encounter for screening for other viral diseases; Z79.4 Long term (current) use of insulin
CPT/HCPCS: 36415; 51700; 70450; 71045; 72125; 76000; 76770; 80048; 80053; 81001; 81015; 82306; 82550; 82553; 82728; 82948; 83540; 83735; 83970; 84100; 84132; 84466; 84484; 85014; 85018; 85025; 85610; 85730; 86850; 86900; 86920; 87086; 93005; 96361; 97139; 99284; C1713; J0360; J0690; J0696; J1100; J1170; J1756; J1817; J2001; J2250; J2270; J2405; J3010; J7030; J7050; J7799; P9016; U0002

== ENCOUNTER 2020-02-27 12:13 | Inpatient (IN) | payer OTHER ==
[~2020-02-27] VITALS: Ht 188 cm; Wt 74.8 kg
[~2020-02-27 12:13] MED LIST changes: +BASAGLAR K100 UNIT/1; +CRESTOR10 MG PO; +GLIPIZIDE5 MG PO; +NOVOLOG100 UNIT/1 SC
[2020-02-27] MEDS ORDERED: ASPIRIN 81 MG CHEW TAB PO ONE ×2 (12:30→13:30)
[2020-02-27 12:37] LABS: HEMATOCRIT 32.3 % (38.2-49.6); HEMOGLOBIN 10.3 g/dL (14.0-18.0); LYMPHOCYTES # (AUTO) 0.2 (1.0-3.2); LYMPHOCYTES % 5.7 % (18.0-39.1); MEAN CORPUSCULAR HEMOGLOBIN 29.1 pg (28-32); MEAN CORPUSCULAR HGB CONC 31.9 g/dL (31-35); MEAN CORPUSCULAR VOLUME 91.2 fL (81-99); MONOCYTES # (AUTO) 0.4 (0.2-0.8); MONOCYTES % 8.4 % (4.4-11.3); NEUTROPHILS # (AUTO) 3.6 (2.1-6.9); NEUTROPHILS % 85.4 % (38.7-80.0); PLATELET COUNT 225 x10e3/uL (140-360); RED BLOOD COUNT 3.54 x10e6/uL (4.3-5.7)
[2020-02-27 12:59] LABS: ALBUMIN 2.3 g/dL (3.5-5.0); ALBUMIN/GLOBULIN RATIO 0.6 (0.8-2.0); ANION GAP 14.7 mmol/L (8-16); CALCIUM 7.5 mg/dL (8.4-10.2); CREATININE, SERUM 2.24 mg/dL (0.72-1.25); POTASSIUM 4.7 mmol/L (3.5-5.1)
[2020-02-27 13:05] LABS: CREATINE KINASE MB 6.9 ng/mL (0-5.0)
[2020-02-27] MEDS ORDERED: SODIUM CHLORIDE 0.9% 1000ML 1,000 ML IV SCH (13:30)
[2020-02-27 14:39] LABS: CREATINE KINASE MB 6.6 ng/mL (0-5.0)
[2020-02-27] MEDS ORDERED: HEPARIN 25,000 UNIT 1,000 UNIT in DEXTROSE 5% 250ML 250 ML IV SCH (17:00)
[2020-02-27] MEDS ORDERED: CLOPIDOGREL BISULFATE 75 MG TAB PO ONE (17:00)
[2020-02-27 17:13] LABS: CLARITY,URINE SL CLOUDY (CLEAR); COLOR,URINE YELLOW (YELLOW); LEUKOCYTE ESTERASE ,URINE NEGATIVE (NEGATIVE); NITRITE,URINE NEGATIVE (NEGATIVE); PROTEIN,URINE DIPSTICK >=300 (NEGATIVE)
[2020-02-27 17:14] LABS: KETONES,URINE NEGATIVE (NEGATIVE); URINE UROBILINOGEN 0.2 mg/dL (0.2 - 1)
[2020-02-27 17:27] LABS: BACTERIA,URINE MANY /HPF
[2020-02-27 17:37] LABS: INR 0.98; PROTHROMBIN TIME 13.6 seconds (11.9-14.5)
[2020-02-27 17:38] LABS: PARTIAL THROMBOPLASTIN TIME 40.1 seconds (23.8-35.5)
[2020-02-27] MEDS: HEPARIN 25,000 UNIT 1,000 UNIT in DEXTROSE 5% 250ML 250 ML IV SCH (17:42)
[2020-02-27] MEDS ORDERED: HEPARIN 25,000 UNIT DRIP IV ONE (17:44)
[2020-02-27 18:46] LABS: CREATINE KINASE MB 5.9 ng/mL (0-5.0)
[2020-02-27] MEDS ORDERED: METOPROLOL TARTRATE INJ 1 MG/ML VIAL ONE (19:08)
[2020-02-27] MEDS ORDERED: HYDRALAZINE HCL 20 MG/ML VIAL ONE (19:14)
[2020-02-27] MEDS: DEXTROSE 50% SYRINGE 50 ML IV PRN (19:16)
[2020-02-27] MEDS ORDERED: DEXTROSE 50% SYRINGE 50 ML IV ONE (19:23)
[2020-02-27] MEDS: ACETAMINOPHEN 325 MG TAB PO PRN (19:35)
[2020-02-27] MEDS: CEFTRIAXONE SOD 1 GM/NS 50 ML 50 ML IV SCH (19:43)
[2020-02-27] MEDS ORDERED: DEXTROSE 50% SYRINGE 50 ML IV PRN (20:30)
[2020-02-27] MEDS: INSULIN LISPRO 100 UNIT/1 ML 3ML VIAL SQ SCH (21:30)
[2020-02-28] MEDS: HYDRALAZINE HCL 20 MG/ML VIAL IV PRN ×2 (00:43→09:54)
[2020-02-28] MEDS: AZITHROMYCIN 500MG/NS 250 ML 250 ML IV SCH ×2 (00:43→22:33)
[2020-02-28] MEDS: CRESTOR 10MG PO SCH ×2 (00:43→22:31)
[2020-02-28] MEDS: DEXAMETHASONE SOD PHOS INJ 4 MG/ML VIAL IV SCH ×2 (00:43→09:53)
[2020-02-28] MEDS: FAMOTIDINE 20 MG/2 ML VIAL IV SCH ×3 (00:43→22:22)
[2020-02-28] MEDS ORDERED: SODIUM CHLORIDE 0.9% 1000ML 1,000 ML IV ONE (01:45)
[2020-02-28] MEDS ORDERED: FUROSEMIDE INJ 10 MG/ML 4 ML VIAL IV ONE (02:15)
[2020-02-28 02:41] LABS: BASOPHILS % 0.2 % (0.0-1.0); HEMOGLOBIN 9.3 g/dL (14.0-18.0); LYMPHOCYTES # (AUTO) 0.2 (1.0-3.2); LYMPHOCYTES % 3.7 % (18.0-39.1); MEAN CORPUSCULAR HEMOGLOBIN 28.9 pg (28-32); MEAN CORPUSCULAR HGB CONC 32.1 g/dL (31-35); MEAN CORPUSCULAR VOLUME 90.1 fL (81-99); MONOCYTES # (AUTO) 0.2 (0.2-0.8); MONOCYTES % 5.1 % (4.4-11.3); NEUTROPHILS # (AUTO) 3.9 (2.1-6.9); NEUTROPHILS % 90.5 % (38.7-80.0); PLATELET COUNT 196 x10e3/uL (140-360); RED BLOOD COUNT 3.22 x10e6/uL (4.3-5.7); RED CELL DISTRIBUTION WIDTH 14.1 % (11.7-14.4)
[2020-02-28 02:43] LABS: ABG HCO3 14 mmol/L (22-26); ABG PCO2 19 mmHg (35-45); ABG PO2 67 mmHg (80-105); ABG TCO2 14
[2020-02-28 02:45] LABS: ABG PH 7.47 (7.35-7.45)
[2020-02-28 02:59] LABS: ALBUMIN 1.9 g/dL (3.5-5.0); ALBUMIN/GLOBULIN RATIO 0.6 (0.8-2.0); ANION GAP 15.4 mmol/L (8-16); CREATININE, SERUM 2.05 mg/dL (0.72-1.25); POTASSIUM 4.4 mmol/L (3.5-5.1)
[2020-02-28 03:02] LABS: CREATINE KINASE MB 4.2 ng/mL (0-5.0)
[2020-02-28] MEDS ORDERED: METOPROLOL TARTRATE 25 MG TAB PO SCH (09:00)
[2020-02-28] MEDS ORDERED: ALBUTEROL SULFATE HFA 8GM INHALATION AEROSOL INH PRN (09:00)
[2020-02-28] MEDS ORDERED: CLOPIDOGREL BISULFATE 75 MG TAB PO SCH (09:00)
[2020-02-28] MEDS: INSULIN LISPRO 100 UNIT/1 ML 3ML VIAL SQ SCH ×3 (09:22→22:43)
[2020-02-28] MEDS: ASPIRIN 81 MG ENTERIC COATED PO SCH (09:53)
[2020-02-28] MEDS: METOPROLOL TARTRATE 50 MG TAB PO SCH ×2 (09:53→22:31)
[2020-02-28] MEDS: CHOLECALCIFEROL 1,000 UNIT TAB PO SCH (09:54)
[2020-02-28] MEDS: ASCORBIC ACID 500 MG TAB PO SCH ×2 (09:54→22:31)
[2020-02-28] MEDS: CLOPIDOGREL BISULFATE 75 MG TAB PO SCH (13:45)
[2020-02-28] MEDS: HEPARIN 25,000 UNIT 1,000 UNIT in DEXTROSE 5% 250ML 250 ML IV SCH (15:43)
[2020-02-28 16:57] LABS: INR 1.08; PROTHROMBIN TIME 14.7 seconds (11.9-14.5)
[2020-02-28 17:01] LABS: PARTIAL THROMBOPLASTIN TIME 132.1 seconds (23.8-35.5)
[2020-02-28] MEDS ORDERED: ZIPRASIDONE 20 MG VIAL IM PRN (21:30)
[2020-02-28] MEDS ORDERED: ZIPRASIDONE 20 MG VIAL IM ONE (22:02)
[2020-02-28] MEDS: CEFTRIAXONE SOD 1 GM/NS 50 ML 50 ML IV SCH (22:16)
[2020-02-28 22:19] LABS: ABG HCO3 16 mmol/L (22-26); ABG PCO2 27 mmHg (35-45); ABG PH 7.38 (7.35-7.45); ABG PO2 16 mmHg (80-105); ABG TCO2 17
[2020-02-28] MEDS: FUROSEMIDE INJ 10 MG/ML 4 ML VIAL IV SCH (22:22)
[2020-02-29] MEDS: LORAZEPAM INJ 2 MG/ML VIAL IV PRN ×2 (00:11→18:16)
[2020-02-29] MEDS ORDERED: LORAZEPAM INJ 2 MG/ML VIAL ONE (00:14)
[2020-02-29] MEDS: NICOTINE 21 MG/EA PATCH TOP SCH ×2 (00:30→11:34)
[2020-02-29] MEDS ORDERED: NICOTINE 21 MG/EA PATCH ONE (00:31)
[2020-02-29 00:43] LABS: INR 1.05; PROTHROMBIN TIME 14.4 seconds (11.9-14.5)
[2020-02-29 00:44] LABS: PARTIAL THROMBOPLASTIN TIME 38.4 seconds (23.8-35.5)
[2020-02-29 01:23] LABS: ALBUMIN 1.9 g/dL (3.5-5.0); ALBUMIN/GLOBULIN RATIO 0.6 (0.8-2.0); ANION GAP 19.4 mmol/L (8-16); CALCIUM 7.3 mg/dL (8.4-10.2); CREATININE, SERUM 2.52 mg/dL (0.72-1.25); POTASSIUM 5.4 mmol/L (3.5-5.1)
[2020-02-29] MEDS: DEXTROSE 50% SYRINGE 50 ML IV PRN ×2 (01:35→06:11)
[2020-02-29] MEDS: ACETAMINOPHEN 325 MG TAB PO PRN ×2 (02:33→11:34)
[2020-02-29] MEDS ORDERED: DEXTROSE 5% 1,000 ML IV SCH (03:30)
[2020-02-29 06:13] LABS: BASOPHILS % 0.2 % (0.0-1.0); HEMATOCRIT 23.4 % (38.2-49.6); HEMOGLOBIN 7.6 g/dL (14.0-18.0); LYMPHOCYTES # (AUTO) 0.5 (1.0-3.2); LYMPHOCYTES % 8.5 % (18.0-39.1); MEAN CORPUSCULAR HEMOGLOBIN 29.6 pg (28-32); MEAN CORPUSCULAR HGB CONC 32.5 g/dL (31-35); MEAN CORPUSCULAR VOLUME 91.1 fL (81-99); MONOCYTES # (AUTO) 0.4 (0.2-0.8); MONOCYTES % 7.8 % (4.4-11.3); NEUTROPHILS # (AUTO) 4.5 (2.1-6.9); NEUTROPHILS % 82.8 % (38.7-80.0); PLATELET COUNT 246 x10e3/uL (140-360); RED BLOOD COUNT 2.57 x10e6/uL (4.3-5.7); RED CELL DISTRIBUTION WIDTH 14.5 % (11.7-14.4)
[2020-02-29 06:16] LABS: INR 0.97; PROTHROMBIN TIME 13.5 seconds (11.9-14.5)
[2020-02-29 06:18] LABS: PARTIAL THROMBOPLASTIN TIME 84.6 seconds (23.8-35.5)
[2020-02-29 06:23] LABS: ANION GAP 14.6 mmol/L (8-16); CALCIUM 7.2 mg/dL (8.4-10.2); CREATININE, SERUM 2.64 mg/dL (0.72-1.25); POTASSIUM 4.6 mmol/L (3.5-5.1)
[2020-02-29] MEDS: INSULIN LISPRO 100 UNIT/1 ML 3ML VIAL SQ SCH ×4 (08:00→22:37)
[2020-02-29] MEDS: DEXAMETHASONE SOD PHOS INJ 4 MG/ML VIAL IV SCH (11:33)
[2020-02-29] MEDS: ASPIRIN 81 MG ENTERIC COATED PO SCH (11:33)
[2020-02-29] MEDS: FAMOTIDINE 20 MG/2 ML VIAL IV SCH ×2 (11:33→17:24)
[2020-02-29] MEDS: FUROSEMIDE INJ 10 MG/ML 4 ML VIAL IV SCH ×2 (11:33→23:35)
[2020-02-29] MEDS: METOPROLOL TARTRATE 50 MG TAB PO SCH ×2 (11:33→17:24)
[2020-02-29] MEDS: ASCORBIC ACID 500 MG TAB PO SCH ×2 (11:34→17:25)
[2020-02-29] MEDS: CHOLECALCIFEROL 1,000 UNIT TAB PO SCH (11:34)
[2020-02-29] MEDS ORDERED: VANCOMYCIN 1GM/NS 250 ML 250 ML IV ONE (12:30)
[2020-02-29] MEDS ORDERED: SODIUM BICARBONATE 8.4% SYRING 150 ML in DEXTROSE 5% 1,000 ML IV ONE (12:30)
[2020-02-29 12:31] LABS: LYMPHOCYTES # (AUTO) 0.2 (1.0-3.2); LYMPHOCYTES % 3.4 % (18.0-39.1); MEAN CORPUSCULAR HEMOGLOBIN 28.3 pg (28-32); MEAN CORPUSCULAR HGB CONC 31.9 g/dL (31-35); MEAN CORPUSCULAR VOLUME 88.8 fL (81-99); MONOCYTES # (AUTO) 0.2 (0.2-0.8); MONOCYTES % 4.8 % (4.4-11.3); NEUTROPHILS # (AUTO) 4.6 (2.1-6.9); NEUTROPHILS % 91.4 % (38.7-80.0); PLATELET COUNT 239 x10e3/uL (140-360); RED BLOOD COUNT 2.33 x10e6/uL (4.3-5.7); RED CELL DISTRIBUTION WIDTH 14.6 % (11.7-14.4)
[2020-02-29 12:42] LABS: HEMATOCRIT 20.7 % (38.2-49.6); HEMOGLOBIN 6.6 g/dL (14.0-18.0)
[2020-02-29] MEDS ORDERED: SODIUM CHLORIDE 0.9% 250ML 250 ML IV ONE (12:45)
[2020-02-29] MEDS ORDERED: MORPHINE SULFATE INJ 2 MG/ML SYR IV PRN (21:30)
[2020-02-29] MEDS: CEFTRIAXONE SOD 1 GM/NS 50 ML 50 ML IV SCH (21:46)
[2020-02-29] MEDS ORDERED: SODIUM CHLORIDE 0.9% 250ML 250 ML ONE (22:15)
[2020-02-29] MEDS: CRESTOR 10MG PO SCH (22:27)
[2020-02-29] MEDS: AZITHROMYCIN 500MG/NS 250 ML 250 ML IV SCH (23:35)
[2020-03-01] MEDS: LORAZEPAM INJ 2 MG/ML VIAL IV PRN (00:06)
[2020-03-01] MEDS ORDERED: SODIUM CHLORIDE 0.9% 250ML 250 ML ONE (01:39)
[2020-03-01] MEDS ORDERED: FUROSEMIDE INJ 10 MG/ML 4 ML VIAL IV ONE (05:30)
[2020-03-01 06:17] LABS: HEMATOCRIT 25.5 % (38.2-49.6); HEMOGLOBIN 8.7 g/dL (14.0-18.0); LYMPHOCYTES # (AUTO) 0.2 (1.0-3.2); LYMPHOCYTES % 3.9 % (18.0-39.1); MEAN CORPUSCULAR HEMOGLOBIN 29.2 pg (28-32); MEAN CORPUSCULAR HGB CONC 34.1 g/dL (31-35); MEAN CORPUSCULAR VOLUME 85.6 fL (81-99); MONOCYTES # (AUTO) 0.3 (0.2-0.8); MONOCYTES % 5.7 % (4.4-11.3); NEUTROPHILS # (AUTO) 4.4 (2.1-6.9); NEUTROPHILS % 89.8 % (38.7-80.0); PLATELET COUNT 238 x10e3/uL (140-360); RED BLOOD COUNT 2.98 x10e6/uL (4.3-5.7); RED CELL DISTRIBUTION WIDTH 15.3 % (11.7-14.4)
[2020-03-01 06:44] LABS: CHOL/HDL RATIO 3.4 (3.9-4.7); MAGNESIUM 1.7 MG/DL (1.3-2.1); PHOSPHORUS 5.3 MG/DL (2.3-4.7)
[2020-03-01 07:12] LABS: ANION GAP 19.7 mmol/L (8-16); CREATININE, SERUM 2.7 mg/dL (0.72-1.25); POTASSIUM 4.7 mmol/L (3.5-5.1)
[2020-03-01 07:14] LABS: ABG HCO3 14 mmol/L (22-26); ABG PCO2 27 mmHg (35-45); ABG PH 7.34 (7.35-7.45); ABG PO2 51 mmHg (80-105); ABG TCO2 15
[2020-03-01 07:15] LABS: CALCIUM 6.5 mg/dL (8.4-10.2)
[2020-03-01 07:27] LABS: % IRON SATURATION 15 % (15-50); IRON 17 ug/dL (65-175); TOTAL IRON BINDING CAPACITY 115 ug/dL (261-478); TRANSFERRIN 82 mg/dL (174-364)
[2020-03-01] MEDS: INSULIN LISPRO 100 UNIT/1 ML 3ML VIAL SQ SCH ×4 (07:30→22:25)
[2020-03-01] MEDS ORDERED: ROCURONIUM BROMIDE 1 ML IV ONE (09:44)
[2020-03-01] MEDS: ASPIRIN 81 MG ENTERIC COATED PO SCH (10:00)
[2020-03-01] MEDS: CHOLECALCIFEROL 1,000 UNIT TAB PO SCH (10:00)
[2020-03-01] MEDS: METOPROLOL TARTRATE 50 MG TAB PO SCH ×2 (10:00→17:29)
[2020-03-01] MEDS: CLOPIDOGREL BISULFATE 75 MG TAB PO SCH (10:01)
[2020-03-01] MEDS: ASCORBIC ACID 500 MG TAB PO SCH ×2 (10:01→17:29)
[2020-03-01 10:11] LABS: ABG HCO3 16 mmol/L (22-26); ABG PCO2 28 mmHg (35-45); ABG PH 7.37 (7.35-7.45); ABG PO2 174 mmHg (80-105); ABG TCO2 17
[2020-03-01] MEDS: PROPOFOL IV EMULSION 10MG/ML 100 ML IV SCH (10:16)
[2020-03-01] MEDS: FAMOTIDINE 20 MG/2 ML VIAL IV SCH ×2 (10:16→17:35)
[2020-03-01] MEDS: DEXAMETHASONE SOD PHOS INJ 4 MG/ML VIAL IV SCH (10:16)
[2020-03-01] MEDS: FUROSEMIDE INJ 10 MG/ML 4 ML VIAL IV SCH (10:16)
[2020-03-01] MEDS: NICOTINE 21 MG/EA PATCH TOP SCH (10:22)
[2020-03-01] MEDS: FENTANYL 2000MCG/NS 250 250 ML IV PRN (11:44)
[2020-03-01] MEDS ORDERED: ETOMIDATE 2 MG/ML 10 ML INJ IV ONE (12:22)
[2020-03-01] MEDS: REMDESIVIR 100MG/NS 100ML 100 MG in SODIUM CHLORIDE 0.9% 100 ML 100 ML IV SCH (13:45)
[2020-03-01] MEDS ORDERED: ALBUMIN 5% 0.05 GM/ML BTL IV STA (14:42)
[2020-03-01] MEDS ORDERED: CALCIUM GLUCONATE 10% INJ 4.65 MEQ in SODIUM CHLORIDE 0.9% 50ML 50 ML IV ONE (15:30)
[2020-03-01] MEDS ORDERED: ALBUMIN 5% 250ML 500 ML IV ONE (15:45)
[2020-03-01 17:12] LABS: ABG PCO2 55 mmHg (35-45); ABG PH 7.16 (7.35-7.45); ABG PO2 302 mmHg (80-105)
[2020-03-01 17:13] LABS: ABG HCO3 20 mmol/L (22-26); ABG TCO2 21
[2020-03-01] MEDS: CEFTRIAXONE SOD 1 GM/NS 50 ML 50 ML IV SCH (21:30)
[2020-03-01] MEDS: CRESTOR 10MG PO SCH (21:56)
[2020-03-01] MEDS: AZITHROMYCIN 500MG/NS 250 ML 250 ML IV SCH (22:16)
[2020-03-02] VITALS (10 sets, daily range): BP systolic 106–123; BP diastolic 44–55
[2020-03-02] MEDS: NOREPINEPHRINE 8 MG/D5W 250 ML 250 ML IV SCH ×2 (01:00→14:50)
[2020-03-02 04:44] LABS: BASOPHILS % 0.2 % (0.0-1.0); HEMATOCRIT 27.7 % (38.2-49.6); HEMOGLOBIN 9.1 g/dL (14.0-18.0); LYMPHOCYTES # (AUTO) 0.2 (1.0-3.2); LYMPHOCYTES % 1.8 % (18.0-39.1); MEAN CORPUSCULAR HEMOGLOBIN 28.8 pg (28-32); MEAN CORPUSCULAR HGB CONC 32.9 g/dL (31-35); MEAN CORPUSCULAR VOLUME 87.7 fL (81-99); MONOCYTES # (AUTO) 0.5 (0.2-0.8); MONOCYTES % 3.5 % (4.4-11.3); NEUTROPHILS # (AUTO) 11.9 (2.1-6.9); NEUTROPHILS % 93.9 % (38.7-80.0); PLATELET COUNT 260 x10e3/uL (140-360); RED BLOOD COUNT 3.16 x10e6/uL (4.3-5.7); RED CELL DISTRIBUTION WIDTH 16.3 % (11.7-14.4)
[2020-03-02 04:58] LABS: CLARITY,URINE CLEAR (CLEAR); COLOR,URINE YELLOW (YELLOW); KETONES,URINE NEGATIVE (NEGATIVE); LEUKOCYTE ESTERASE ,URINE NEGATIVE (NEGATIVE); NITRITE,URINE NEGATIVE (NEGATIVE); PROTEIN,URINE DIPSTICK 2+ (NEGATIVE); URINE UROBILINOGEN 0.2 mg/dL (0.2 - 1)
[2020-03-02 05:06] LABS: ALBUMIN 1.7 g/dL (3.5-5.0); ALBUMIN/GLOBULIN RATIO 0.5 (0.8-2.0); ANION GAP 21.5 mmol/L (8-16); CREATININE, SERUM 3.55 mg/dL (0.72-1.25); POTASSIUM 4.5 mmol/L (3.5-5.1)
[2020-03-02 05:09] LABS: CALCIUM 6.8 mg/dL (8.4-10.2)
[2020-03-02 05:13] LABS: BACTERIA,URINE RARE /HPF; EPITHELIAL CELLS,URINE FEW /LPF
[2020-03-02 05:45] LABS: CREATININE,URINE RANDOM 56.33 mg/dL (63-166); TOTAL PROTEIN, URINE 72.6 mg/dL (1-14)
[2020-03-02] MEDS ORDERED: CALCIUM GLUCONATE 10% INJ 9.3 MEQ in SODIUM CHLORIDE 0.9% 100 ML 100 ML IV ONE (07:00)
[2020-03-02] MEDS: METOPROLOL TARTRATE 50 MG TAB PO SCH (07:20)
[2020-03-02] MEDS: ASPIRIN 81 MG ENTERIC COATED PO SCH (07:20)
[2020-03-02] MEDS: CLOPIDOGREL BISULFATE 75 MG TAB PO SCH (07:21)
[2020-03-02] MEDS: ASCORBIC ACID 500 MG TAB PO SCH ×2 (07:21→14:16)
[2020-03-02] MEDS: CHOLECALCIFEROL 1,000 UNIT TAB PO SCH (07:21)
[2020-03-02] MEDS: INSULIN LISPRO 100 UNIT/1 ML 3ML VIAL SQ SCH ×4 (07:47→21:18)
[2020-03-02] MEDS: DEXAMETHASONE SOD PHOS INJ 4 MG/ML VIAL IV SCH (08:49)
[2020-03-02] MEDS: FAMOTIDINE 20 MG/2 ML VIAL IV SCH ×2 (08:49→18:13)
[2020-03-02] MEDS: PROPOFOL IV EMULSION 10MG/ML 100 ML IV SCH ×2 (08:49→23:21)
[2020-03-02] MEDS: NICOTINE 21 MG/EA PATCH TOP SCH (09:06)
[2020-03-02] MEDS: IRON SUCROSE 100 MG in SODIUM CHLORIDE 0.9% 100 ML 100 ML IV SCH ×2 (09:13→14:15)
[2020-03-02 10:02] LABS: LYMPHOCYTES % (MANUAL) 3 % (19-48); MONOCYTES % (MANUAL) 4 % (3.4-9.0); NEUTROPHILS % (MANUAL) 93 % (40-74)
[2020-03-02 12:43] LABS: INR 1.15; PROTHROMBIN TIME 15.5 seconds (11.9-14.5)
[2020-03-02 12:44] LABS: PARTIAL THROMBOPLASTIN TIME 40.4 seconds (23.8-35.5)
[2020-03-02] MEDS: REMDESIVIR 100MG/NS 100ML 100 MG in SODIUM CHLORIDE 0.9% 100 ML 100 ML IV SCH (14:15)
[2020-03-02] MEDS ORDERED: ALBUMIN 5% 250ML 500 ML IV ONE (17:00)
[2020-03-02] MEDS: CRESTOR 10MG PO SCH (21:00)
[2020-03-02] MEDS: SODIUM BICARBONATE 8.4% 150 ML in DEXTROSE 5% 1,000 ML IV SCH (21:17)
[2020-03-02] MEDS: AZITHROMYCIN 500MG/NS 250 ML 250 ML IV SCH (21:17)
[2020-03-02] MEDS: CEFTRIAXONE SOD 1 GM/NS 50 ML 50 ML IV SCH (21:17)
[2020-03-03] VITALS (18 sets, daily range): BP systolic 96–166; BP diastolic 45–66
[2020-03-03 04:57] LABS: BASOPHILS % 0.1 % (0.0-1.0); HEMATOCRIT 22.7 % (38.2-49.6); HEMOGLOBIN 7.4 g/dL (14.0-18.0); LYMPHOCYTES # (AUTO) 0.2 (1.0-3.2); LYMPHOCYTES % 2.7 % (18.0-39.1); MEAN CORPUSCULAR HEMOGLOBIN 28.9 pg (28-32); MEAN CORPUSCULAR HGB CONC 32.6 g/dL (31-35); MEAN CORPUSCULAR VOLUME 88.7 fL (81-99); MONOCYTES # (AUTO) 0.4 (0.2-0.8); MONOCYTES % 4.1 % (4.4-11.3); NEUTROPHILS # (AUTO) 8.2 (2.1-6.9); NEUTROPHILS % 92.5 % (38.7-80.0); PLATELET COUNT 241 x10e3/uL (140-360); RED BLOOD COUNT 2.56 x10e6/uL (4.3-5.7); RED CELL DISTRIBUTION WIDTH 16.5 % (11.7-14.4)
[2020-03-03 05:03] LABS: ALBUMIN 2.3 g/dL (3.5-5.0); ALBUMIN/GLOBULIN RATIO 0.9 (0.8-2.0); ANION GAP 20.9 mmol/L (8-16); CREATININE, SERUM 3.8 mg/dL (0.72-1.25); POTASSIUM 4.9 mmol/L (3.5-5.1)
[2020-03-03 05:16] LABS: PHOSPHORUS 6.7 MG/DL (2.3-4.7)
[2020-03-03 05:20] LABS: CALCIUM 6.6 mg/dL (8.4-10.2)
[2020-03-03 06:47] LABS: BAND NEUTROPHILS % (MANUAL) 13 %; LYMPHOCYTES % (MANUAL) 4 % (19-48); MONOCYTES % (MANUAL) 1 % (3.4-9.0); NEUTROPHILS % (MANUAL) 82 % (40-74)
[2020-03-03 06:58] LABS: PLATELET ESTIMATE ADEQUATE; PLATELET MORPHOLOGY COMMENT NORMAL; RBC MORPHOLOGY COMMENT NORMAL
[2020-03-03] MEDS: INSULIN LISPRO 100 UNIT/1 ML 3ML VIAL SQ SCH ×4 (08:12→21:00)
[2020-03-03] MEDS: DEXAMETHASONE SOD PHOS INJ 4 MG/ML VIAL IV SCH (08:35)
[2020-03-03] MEDS: ASCORBIC ACID 500 MG TAB PO SCH ×2 (08:39→18:49)
[2020-03-03] MEDS: FAMOTIDINE 20 MG/2 ML VIAL IV SCH ×2 (08:39→18:49)
[2020-03-03] MEDS: CHOLECALCIFEROL 1,000 UNIT TAB PO SCH (08:39)
[2020-03-03] MEDS: CLOPIDOGREL BISULFATE 75 MG TAB PO SCH (08:42)
[2020-03-03] MEDS: NICOTINE 21 MG/EA PATCH TOP SCH (08:42)
[2020-03-03] MEDS: ASPIRIN 81 MG ENTERIC COATED PO SCH (09:11)
[2020-03-03] MEDS ORDERED: BUMETANIDE INJ 0.25MG/ML 4ML VIAL IV ONE (09:15)
[2020-03-03] MEDS: NOREPINEPHRINE 8 MG/D5W 250 ML 250 ML IV SCH (10:00)
[2020-03-03] MEDS ORDERED: CALCIUM GLUCONATE 10% INJ 4.65 MEQ in SODIUM CHLORIDE 0.9% 50ML 50 ML IV ONE (16:30)
[2020-03-03] MEDS: IRON SUCROSE 100 MG in SODIUM CHLORIDE 0.9% 100 ML 100 ML IV SCH (17:10)
[2020-03-03] MEDS ORDERED: SODIUM CHLORIDE 0.9% 1000ML 2,000 ML IV PRN (17:15)
[2020-03-03] MEDS ORDERED: HEPARIN SOD (PORCINE) 1000 UNIT/ML SDV IV PRN (17:15)
[2020-03-03] MEDS ORDERED: MANNITOL 25% 12.5GM/50 ML VIAL IV PRN (17:15)
[2020-03-03] MEDS ORDERED: SODIUM CHLORIDE 0.9% 1000ML 2,000 ML ONE (17:16)
[2020-03-03] MEDS: PROPOFOL IV EMULSION 10MG/ML 100 ML IV SCH (20:00)
[2020-03-03] MEDS: CEFTRIAXONE SOD 1 GM/NS 50 ML 50 ML IV SCH (20:45)
[2020-03-03] MEDS: CRESTOR 10MG PO SCH (20:45)
[2020-03-03] MEDS: SODIUM BICARBONATE 8.4% 150 ML in DEXTROSE 5% 1,000 ML IV SCH (20:45)
[2020-03-03] MEDS: AZITHROMYCIN 500MG/NS 250 ML 250 ML IV SCH (20:45)
[2020-03-04] VITALS (25 sets, daily range): BP systolic 86–158; BP diastolic 47–67
[2020-03-04 04:50] LABS: HEMATOCRIT 21.9 % (38.2-49.6); HEMOGLOBIN 7.1 g/dL (14.0-18.0); LYMPHOCYTES # (AUTO) 0.1 (1.0-3.2); LYMPHOCYTES % 2.1 % (18.0-39.1); MEAN CORPUSCULAR HEMOGLOBIN 28.4 pg (28-32); MEAN CORPUSCULAR HGB CONC 32.4 g/dL (31-35); MEAN CORPUSCULAR VOLUME 87.6 fL (81-99); MONOCYTES # (AUTO) 0.3 (0.2-0.8); MONOCYTES % 5.2 % (4.4-11.3); NEUTROPHILS # (AUTO) 5.6 (2.1-6.9); NEUTROPHILS % 92.2 % (38.7-80.0); PLATELET COUNT 207 x10e3/uL (140-360); RED CELL DISTRIBUTION WIDTH 16.3 % (11.7-14.4)
[2020-03-04] MEDS: SODIUM BICARBONATE 8.4% 150 ML in DEXTROSE 5% 1,000 ML IV SCH ×2 (04:58→20:57)
[2020-03-04 05:13] LABS: ALBUMIN 2.1 g/dL (3.5-5.0); ALBUMIN/GLOBULIN RATIO 0.8 (0.8-2.0); ANION GAP 16.2 mmol/L (8-16); CREATININE, SERUM 3.15 mg/dL (0.72-1.25); POTASSIUM 4.2 mmol/L (3.5-5.1)
[2020-03-04 05:18] LABS: CALCIUM 6.8 mg/dL (8.4-10.2)
[2020-03-04] MEDS: PROPOFOL IV EMULSION 10MG/ML 100 ML IV SCH ×2 (06:22→21:38)
[2020-03-04] MEDS: FENTANYL 2000MCG/NS 250 250 ML IV PRN ×2 (06:23→21:41)
[2020-03-04 07:17] LABS: ANISOCYTOSIS SLIGHT; LYMPHOCYTES % (MANUAL) 4 % (19-48); MONOCYTES % (MANUAL) 7 % (3.4-9.0); NEUTROPHILS % (MANUAL) 89 % (40-74); PLATELET ESTIMATE ADEQUATE; PLATELET MORPHOLOGY COMMENT NORMAL; RBC MORPHOLOGY COMMENT NORMAL
[2020-03-04] MEDS: ASCORBIC ACID 500 MG TAB PO SCH ×2 (07:46→16:27)
[2020-03-04] MEDS: ASPIRIN 81 MG ENTERIC COATED PO SCH (07:46)
[2020-03-04] MEDS: CHOLECALCIFEROL 1,000 UNIT TAB PO SCH (07:46)
[2020-03-04] MEDS: DEXAMETHASONE SOD PHOS INJ 4 MG/ML VIAL IV SCH (07:46)
[2020-03-04] MEDS: INSULIN LISPRO 100 UNIT/1 ML 3ML VIAL SQ SCH ×4 (07:46→21:37)
[2020-03-04] MEDS: FAMOTIDINE 20 MG/2 ML VIAL IV SCH ×2 (07:46→16:27)
[2020-03-04] MEDS: NICOTINE 21 MG/EA PATCH TOP SCH (08:17)
[2020-03-04] MEDS: CLOPIDOGREL BISULFATE 75 MG TAB PO SCH (08:17)
[2020-03-04] MEDS: NOREPINEPHRINE 8 MG/D5W 250 ML 250 ML IV SCH (10:00)
[2020-03-04] MEDS: CEFTRIAXONE SOD 1 GM/NS 50 ML 50 ML IV SCH (20:57)
[2020-03-04] MEDS: AZITHROMYCIN 500MG/NS 250 ML 250 ML IV SCH (20:57)
[2020-03-04] MEDS: CRESTOR 10MG PO SCH (20:57)
[2020-03-05] VITALS (22 sets, daily range): BP systolic 91–164; BP diastolic 43–84
[2020-03-05] MEDS: ACETAMINOPHEN 325 MG TAB PO PRN (01:10)
[2020-03-05 05:26] LABS: BASOPHILS % 0.2 % (0.0-1.0); HEMATOCRIT 22.7 % (38.2-49.6); HEMOGLOBIN 7.6 g/dL (14.0-18.0); LYMPHOCYTES # (AUTO) 0.2 (1.0-3.2); LYMPHOCYTES % 5.5 % (18.0-39.1); MEAN CORPUSCULAR HEMOGLOBIN 29.8 pg (28-32); MEAN CORPUSCULAR HGB CONC 33.5 g/dL (31-35); MONOCYTES # (AUTO) 0.2 (0.2-0.8); MONOCYTES % 3.9 % (4.4-11.3); NEUTROPHILS # (AUTO) 3.7 (2.1-6.9); PLATELET COUNT 182 x10e3/uL (140-360); RED BLOOD COUNT 2.55 x10e6/uL (4.3-5.7); RED CELL DISTRIBUTION WIDTH 15.8 % (11.7-14.4)
[2020-03-05 05:56] LABS: ALBUMIN 1.8 g/dL (3.5-5.0); ALBUMIN/GLOBULIN RATIO 0.6 (0.8-2.0); CREATININE, SERUM 2.76 mg/dL (0.72-1.25)
[2020-03-05 05:57] LABS: CALCIUM 6.6 mg/dL (8.4-10.2)
[2020-03-05 06:35] LABS: MAGNESIUM 1.8 MG/DL (1.3-2.1)
[2020-03-05] MEDS: INSULIN LISPRO 100 UNIT/1 ML 3ML VIAL SQ SCH ×4 (07:30→20:52)
[2020-03-05] MEDS: DEXAMETHASONE SOD PHOS INJ 4 MG/ML VIAL IV SCH (09:18)
[2020-03-05] MEDS: FAMOTIDINE 20 MG/2 ML VIAL IV SCH ×2 (09:18→16:25)
[2020-03-05] MEDS: CHOLECALCIFEROL 1,000 UNIT TAB PO SCH (09:18)
[2020-03-05] MEDS: CLOPIDOGREL BISULFATE 75 MG TAB PO SCH (09:18)
[2020-03-05] MEDS: NICOTINE 21 MG/EA PATCH TOP SCH (09:18)
[2020-03-05] MEDS: ASPIRIN 81 MG CHEW TAB PO SCH (09:18)
[2020-03-05] MEDS: ASCORBIC ACID 500 MG TAB PO SCH ×2 (09:18→16:26)
[2020-03-05] MEDS: NOREPINEPHRINE 8 MG/D5W 250 ML 250 ML IV SCH (09:20)
[2020-03-05] MEDS ORDERED: DEXMEDETOMIDINE 200MCG/NS 50ML 50 ML IV PRN (12:15)
[2020-03-05] MEDS ORDERED: CALCIUM GLUCONATE 10% INJ 9.3 MEQ in SODIUM CHLORIDE 0.9% 100 ML 100 ML IV ONE (14:15)
[2020-03-05] MEDS ORDERED: SODIUM CHLORIDE 0.9% 250ML 250 ML IV ONE (15:30)
[2020-03-05] MEDS: METOPROLOL TARTRATE 50 MG TAB PO SCH (16:25)
[2020-03-05] MEDS: AZITHROMYCIN 500MG/NS 250 ML 250 ML IV SCH (20:30)
[2020-03-05] MEDS: CEFTRIAXONE SOD 1 GM/NS 50 ML 50 ML IV SCH (20:35)
[2020-03-05] MEDS: CRESTOR 10MG PO SCH (20:39)
[2020-03-06] VITALS (21 sets, daily range): BP systolic 103–167; BP diastolic 49–69
[2020-03-06] MEDS: DEXMEDETOMIDINE 200MCG/NS 50ML 50 ML IV PRN ×2 (00:09→20:00)
[2020-03-06 05:42] LABS: BASOPHILS % 0.2 % (0.0-1.0); EOSINOPHILS % 0.7 % (0.0-6.0); HEMATOCRIT 23.1 % (38.2-49.6); HEMOGLOBIN 7.5 g/dL (14.0-18.0); LYMPHOCYTES # (AUTO) 0.3 (1.0-3.2); LYMPHOCYTES % 5.7 % (18.0-39.1); MEAN CORPUSCULAR HEMOGLOBIN 28.7 pg (28-32); MEAN CORPUSCULAR HGB CONC 32.5 g/dL (31-35); MEAN CORPUSCULAR VOLUME 88.5 fL (81-99); MONOCYTES # (AUTO) 0.2 (0.2-0.8); MONOCYTES % 4.1 % (4.4-11.3); NEUTROPHILS # (AUTO) 3.8 (2.1-6.9); NEUTROPHILS % 87.5 % (38.7-80.0); PLATELET COUNT 182 x10e3/uL (140-360); RED BLOOD COUNT 2.61 x10e6/uL (4.3-5.7); RED CELL DISTRIBUTION WIDTH 15.6 % (11.7-14.4)
[2020-03-06 06:05] LABS: ALBUMIN 1.5 g/dL (3.5-5.0); ALBUMIN/GLOBULIN RATIO 0.4 (0.8-2.0); CALCIUM 7.8 mg/dL (8.4-10.2); CREATININE, SERUM 2.47 mg/dL (0.72-1.25)
[2020-03-06] MEDS: INSULIN LISPRO 100 UNIT/1 ML 3ML VIAL SQ SCH ×4 (07:21→20:27)
[2020-03-06] MEDS: FENTANYL 2000MCG/NS 250 250 ML IV PRN (07:24)
[2020-03-06] MEDS ORDERED: ALBUMIN 25% 12.5GM 50ML 100 ML IV ONE (08:37)
[2020-03-06] MEDS: METOPROLOL TARTRATE 50 MG TAB PO SCH ×2 (09:00→14:59)
[2020-03-06] MEDS: NOREPINEPHRINE 8 MG/D5W 250 ML 250 ML IV SCH (10:00)
[2020-03-06] MEDS: FAMOTIDINE 20 MG/2 ML VIAL IV SCH ×2 (11:59→14:59)
[2020-03-06] MEDS: ASPIRIN 81 MG CHEW TAB PO SCH (11:59)
[2020-03-06] MEDS: DEXAMETHASONE SOD PHOS INJ 4 MG/ML VIAL IV SCH (11:59)
[2020-03-06] MEDS: CLOPIDOGREL BISULFATE 75 MG TAB PO SCH (12:00)
[2020-03-06] MEDS: CHOLECALCIFEROL 1,000 UNIT TAB PO SCH (12:00)
[2020-03-06] MEDS: ASCORBIC ACID 500 MG TAB PO SCH ×2 (12:00→15:00)
[2020-03-06] MEDS: NICOTINE 21 MG/EA PATCH TOP SCH (12:02)
[2020-03-06] MEDS: HEPARIN SOD (PORCINE) 5,000 UNIT/ML VIAL SC SCH ×2 (14:01→20:28)
[2020-03-06] MEDS: AZITHROMYCIN 500MG/NS 250 ML 250 ML IV SCH (20:12)
[2020-03-06] MEDS: CEFTRIAXONE SOD 1 GM/NS 50 ML 50 ML IV SCH (20:12)
[2020-03-06] MEDS: CRESTOR 10MG PO SCH (20:22)
[2020-03-06] MEDS: INSULIN GLARGINE 100 UNITS/ML VIAL SQ SCH (20:27)
[2020-03-07] VITALS (25 sets, daily range): BP systolic 121–181; BP diastolic 49–82
[2020-03-07] MEDS: DEXMEDETOMIDINE 200MCG/NS 50ML 50 ML IV PRN ×2 (00:40→05:28)
[2020-03-07 04:50] LABS: BASOPHILS % 0.2 % (0.0-1.0); EOSINOPHILS % 0.6 % (0.0-6.0); HEMATOCRIT 22.6 % (38.2-49.6); HEMOGLOBIN 7.3 g/dL (14.0-18.0); LYMPHOCYTES # (AUTO) 0.3 (1.0-3.2); LYMPHOCYTES % 5.2 % (18.0-39.1); MEAN CORPUSCULAR HEMOGLOBIN 28.9 pg (28-32); MEAN CORPUSCULAR HGB CONC 32.3 g/dL (31-35); MEAN CORPUSCULAR VOLUME 89.3 fL (81-99); MONOCYTES # (AUTO) 0.3 (0.2-0.8); MONOCYTES % 5.4 % (4.4-11.3); NEUTROPHILS # (AUTO) 4.5 (2.1-6.9); NEUTROPHILS % 86.5 % (38.7-80.0); PLATELET COUNT 190 x10e3/uL (140-360); RED BLOOD COUNT 2.53 x10e6/uL (4.3-5.7); RED CELL DISTRIBUTION WIDTH 15.6 % (11.7-14.4)
[2020-03-07 05:09] LABS: ALBUMIN 1.5 g/dL (3.5-5.0); ALBUMIN/GLOBULIN RATIO 0.5 (0.8-2.0); ANION GAP 12.2 mmol/L (8-16); CALCIUM 7.5 mg/dL (8.4-10.2); CREATININE, SERUM 1.93 mg/dL (0.72-1.25); POTASSIUM 4.2 mmol/L (3.5-5.1)
[2020-03-07] MEDS: HEPARIN SOD (PORCINE) 5,000 UNIT/ML VIAL SC SCH ×3 (05:14→22:13)
[2020-03-07 08:27] LABS: PHOSPHORUS 2.8 MG/DL (2.3-4.7)
[2020-03-07] MEDS: METOPROLOL TARTRATE 50 MG TAB PO SCH ×2 (08:44→16:28)
[2020-03-07] MEDS: CLOPIDOGREL BISULFATE 75 MG TAB PO SCH (09:21)
[2020-03-07] MEDS: ASCORBIC ACID 500 MG TAB PO SCH ×2 (09:21→16:30)
[2020-03-07] MEDS: DEXAMETHASONE SOD PHOS INJ 4 MG/ML VIAL IV SCH (09:21)
[2020-03-07] MEDS: ASPIRIN 81 MG CHEW TAB PO SCH (09:21)
[2020-03-07] MEDS: FAMOTIDINE 20 MG/2 ML VIAL IV SCH ×2 (09:21→16:28)
[2020-03-07] MEDS: NICOTINE 21 MG/EA PATCH TOP SCH (09:21)
[2020-03-07] MEDS: CHOLECALCIFEROL 1,000 UNIT TAB PO SCH (09:21)
[2020-03-07] MEDS: NOREPINEPHRINE 8 MG/D5W 250 ML 250 ML IV SCH (10:00)
[2020-03-07] MEDS: INSULIN LISPRO 100 UNIT/1 ML 3ML VIAL SQ SCH ×2 (11:49→18:38)
[2020-03-07] MEDS ORDERED: CLOPIDOGREL BISULFATE 75 MG TAB PO ONE (17:00)
[2020-03-07] MEDS: FENTANYL 2000MCG/NS 250 250 ML IV PRN (19:14)
[2020-03-07] MEDS: CEFTRIAXONE SOD 1 GM/NS 50 ML 50 ML IV SCH (20:05)
[2020-03-07] MEDS: AZITHROMYCIN 500MG/NS 250 ML 250 ML IV SCH (21:46)
[2020-03-07] MEDS: CRESTOR 10MG PO SCH (21:47)
[2020-03-07] MEDS: INSULIN GLARGINE 100 UNITS/ML VIAL SQ SCH (21:47)
[2020-03-08] VITALS (23 sets, daily range): BP systolic 88–173; BP diastolic 46–78
[2020-03-08] MEDS: INSULIN LISPRO 100 UNIT/1 ML 3ML VIAL SQ SCH ×4 (00:17→18:00)
[2020-03-08] MEDS: FENTANYL 2000MCG/NS 250 250 ML IV PRN ×2 (03:24→23:09)
[2020-03-08] MEDS: HEPARIN SOD (PORCINE) 5,000 UNIT/ML VIAL SC SCH ×3 (04:18→21:11)
[2020-03-08 05:50] LABS: BASOPHILS % 0.4 % (0.0-1.0); EOSINOPHILS # (AUTO) 0.1 (0.0-0.4); EOSINOPHILS % 1.1 % (0.0-6.0); HEMATOCRIT 22.9 % (38.2-49.6); HEMOGLOBIN 7.3 g/dL (14.0-18.0); LYMPHOCYTES # (AUTO) 0.4 (1.0-3.2); LYMPHOCYTES % 7.3 % (18.0-39.1); MEAN CORPUSCULAR HEMOGLOBIN 28.9 pg (28-32); MEAN CORPUSCULAR HGB CONC 31.9 g/dL (31-35); MEAN CORPUSCULAR VOLUME 90.5 fL (81-99); MONOCYTES # (AUTO) 0.5 (0.2-0.8); NEUTROPHILS # (AUTO) 4.1 (2.1-6.9); NEUTROPHILS % 78.9 % (38.7-80.0); PLATELET COUNT 212 x10e3/uL (140-360); RED BLOOD COUNT 2.53 x10e6/uL (4.3-5.7); RED CELL DISTRIBUTION WIDTH 15.7 % (11.7-14.4)
[2020-03-08 06:03] LABS: INR 0.96; PROTHROMBIN TIME 13.3 seconds (11.9-14.5)
[2020-03-08 06:04] LABS: PARTIAL THROMBOPLASTIN TIME 42.1 seconds (23.8-35.5)
[2020-03-08 06:16] LABS: ALBUMIN 1.5 g/dL (3.5-5.0); ALBUMIN/GLOBULIN RATIO 0.5 (0.8-2.0); ANION GAP 13.2 mmol/L (8-16); CALCIUM 7.4 mg/dL (8.4-10.2); CREATININE, SERUM 2.53 mg/dL (0.72-1.25); POTASSIUM 4.2 mmol/L (3.5-5.1)
[2020-03-08] MEDS: METOPROLOL TARTRATE 50 MG TAB PO SCH ×2 (09:00→17:00)
[2020-03-08] MEDS: FAMOTIDINE 20 MG/2 ML VIAL IV SCH ×2 (09:04→18:05)
[2020-03-08] MEDS: ASPIRIN 81 MG CHEW TAB PO SCH (09:04)
[2020-03-08] MEDS: DEXAMETHASONE SOD PHOS INJ 4 MG/ML VIAL IV SCH (09:04)
[2020-03-08] MEDS: CLOPIDOGREL BISULFATE 75 MG TAB PO SCH (09:05)
[2020-03-08] MEDS: ASCORBIC ACID 500 MG TAB PO SCH ×2 (09:05→18:05)
[2020-03-08] MEDS: NICOTINE 21 MG/EA PATCH TOP SCH (09:05)
[2020-03-08] MEDS: CHOLECALCIFEROL 1,000 UNIT TAB PO SCH (09:05)
[2020-03-08] MEDS: NOREPINEPHRINE 8 MG/D5W 250 ML 250 ML IV SCH ×2 (09:06→19:31)
[2020-03-08] MEDS: DEXMEDETOMIDINE 200MCG/NS 50ML 50 ML IV PRN ×2 (09:40→23:10)
[2020-03-08] MEDS ORDERED: FENTANYL 2,000 MCG/250 ML BAG ONE (13:42)
[2020-03-08] MEDS ORDERED: LIDOCAINE HCL 2% LOCAL 20 ML VIAL ONE (14:09)
[2020-03-08] MEDS ORDERED: HEPARIN SOD/SOD CHLORIDE 2,000 ML ONE (14:09)
[2020-03-08] MEDS ORDERED: FENTANYL CITRATE/PF 100MCG/2 ML INJ ONE (14:09)
[2020-03-08] MEDS ORDERED: MIDAZOLAM HCL 2 MG/2 ML VIAL ONE (14:09)
[2020-03-08] MEDS ORDERED: SODIUM CHLORIDE 0.9% 1000ML 1,000 ML ONE (14:10)
[2020-03-08] MEDS ORDERED: ASPIRIN 325 MG TAB ONE (16:02)
[2020-03-08] MEDS ORDERED: CLOPIDOGREL BISULFATE 75 MG TAB ONE (16:02)
[2020-03-08] MEDS ORDERED: NOREPINEPHRINE 8 MG/D5W 250 ML 250 ML ONE (16:07)
[2020-03-08] MEDS: INSULIN GLARGINE 100 UNITS/ML VIAL SQ SCH (21:10)
[2020-03-09] VITALS (27 sets, daily range): BP systolic 83–180; BP diastolic 42–92
[2020-03-09] MEDS: INSULIN LISPRO 100 UNIT/1 ML 3ML VIAL SQ SCH ×4 (00:29→18:00)
[2020-03-09] MEDS: DEXMEDETOMIDINE 200MCG/NS 50ML 50 ML IV PRN (02:07)
[2020-03-09 05:18] LABS: BASOPHILS % 0.2 % (0.0-1.0); LYMPHOCYTES # (AUTO) 0.6 (1.0-3.2); LYMPHOCYTES % 3.4 % (18.0-39.1); MEAN CORPUSCULAR HEMOGLOBIN 27.9 pg (28-32); MEAN CORPUSCULAR HGB CONC 31.2 g/dL (31-35); MEAN CORPUSCULAR VOLUME 89.4 fL (81-99); MONOCYTES # (AUTO) 1.8 (0.2-0.8); MONOCYTES % 11.1 % (4.4-11.3); NEUTROPHILS # (AUTO) 13.1 (2.1-6.9); NEUTROPHILS % 82.2 % (38.7-80.0); PLATELET COUNT 315 x10e3/uL (140-360); RED BLOOD COUNT 2.26 x10e6/uL (4.3-5.7); RED CELL DISTRIBUTION WIDTH 15.9 % (11.7-14.4)
[2020-03-09 05:22] LABS: HEMATOCRIT 20.2 % (38.2-49.6); HEMOGLOBIN 6.3 g/dL (14.0-18.0)
[2020-03-09 05:54] LABS: ALBUMIN 1.5 g/dL (3.5-5.0); ALBUMIN/GLOBULIN RATIO 0.5 (0.8-2.0); ANION GAP 20.4 mmol/L (8-16); CREATININE, SERUM 3.17 mg/dL (0.72-1.25); POTASSIUM 5.4 mmol/L (3.5-5.1)
[2020-03-09 05:59] LABS: CALCIUM 6.5 mg/dL (8.4-10.2)
[2020-03-09] MEDS: HEPARIN SOD (PORCINE) 5,000 UNIT/ML VIAL SC SCH (06:00)
[2020-03-09] MEDS: NOREPINEPHRINE 8 MG/D5W 250 ML 250 ML IV SCH (06:58)
[2020-03-09] MEDS ORDERED: SODIUM CHLORIDE 0.9% 250ML 250 ML IV ONE (07:00)
[2020-03-09] MEDS ORDERED: CALCIUM GLUCONATE 10% INJ 4.65 MEQ in SODIUM CHLORIDE 0.9% 50ML 50 ML IV ONE (07:00)
[2020-03-09] MEDS: CLOPIDOGREL BISULFATE 75 MG TAB PO SCH (08:06)
[2020-03-09] MEDS: CHOLECALCIFEROL 1,000 UNIT TAB PO SCH (08:06)
[2020-03-09] MEDS: DEXAMETHASONE SOD PHOS INJ 4 MG/ML VIAL IV SCH (08:06)
[2020-03-09] MEDS: ASPIRIN 81 MG CHEW TAB PO SCH (08:06)
[2020-03-09] MEDS: FAMOTIDINE 20 MG/2 ML VIAL IV SCH ×2 (08:06→17:03)
[2020-03-09] MEDS: ASCORBIC ACID 500 MG TAB PO SCH ×2 (08:06→17:03)
[2020-03-09] MEDS: METOPROLOL TARTRATE 50 MG TAB PO SCH ×2 (08:10→17:00)
[2020-03-09] MEDS: NICOTINE 21 MG/EA PATCH TOP SCH (08:10)
[2020-03-09] MEDS ORDERED: VASOPRESSIN 60 UNIT in DEXTROSE 5% 50ML 57 ML IV PRN (10:00)
[2020-03-09] MEDS ORDERED: HEPARIN SOD (PORCINE) 1000 UNIT/ML SDV IV PRN (11:00)
[2020-03-09 11:22] LABS: HYPOCHROMASIA SLIGHT; LYMPHOCYTES % (MANUAL) 7 % (19-48); METAMYELOCYTES % (MANUAL) 1 % (0-0); MONOCYTES % (MANUAL) 6 % (3.4-9.0); NEUTROPHILS % (MANUAL) 86 % (40-74); NUCLEATED RED BLOOD CELLS 4
[2020-03-09 11:23] LABS: ANISOCYTOSIS SLIGHT; PLATELET ESTIMATE ADEQUATE; PLATELET MORPHOLOGY COMMENT FEW LARGE; RBC MORPHOLOGY COMMENT NORMAL
[2020-03-09 11:25] LABS: GIANT PLATELETS FEW
[2020-03-09 15:01] LABS: ABG HCO3 23 mmol/L (22-26); ABG PCO2 27 mmHg (35-45); ABG PH 7.53 (7.35-7.45); ABG PO2 153 mmHg (80-105); ABG TCO2 24
[2020-03-09] MEDS ORDERED: ALBUMIN 25% 25GM 100ML 200 ML ONE (17:21)
[2020-03-09] MEDS: INSULIN GLARGINE 100 UNITS/ML VIAL SQ SCH (21:00)
[2020-03-10] VITALS (21 sets, daily range): BP systolic 95–198; BP diastolic 36–90
[2020-03-10] MEDS: DEXMEDETOMIDINE 200MCG/NS 50ML 50 ML IV PRN ×2 (00:12→20:29)
[2020-03-10] MEDS: INSULIN LISPRO 100 UNIT/1 ML 3ML VIAL SQ SCH ×4 (05:25→17:20)
[2020-03-10 05:45] LABS: BASOPHILS % 0.3 % (0.0-1.0); HEMATOCRIT 27.6 % (38.2-49.6); HEMOGLOBIN 9.5 g/dL (14.0-18.0); LYMPHOCYTES # (AUTO) 0.6 (1.0-3.2); LYMPHOCYTES % 4.4 % (18.0-39.1); MEAN CORPUSCULAR HEMOGLOBIN 30.4 pg (28-32); MEAN CORPUSCULAR HGB CONC 34.4 g/dL (31-35); MEAN CORPUSCULAR VOLUME 88.5 fL (81-99); MONOCYTES # (AUTO) 1.5 (0.2-0.8); MONOCYTES % 10.2 % (4.4-11.3); NEUTROPHILS % 83.1 % (38.7-80.0); PLATELET COUNT 225 x10e3/uL (140-360); RED BLOOD COUNT 3.12 x10e6/uL (4.3-5.7); RED CELL DISTRIBUTION WIDTH 14.9 % (11.7-14.4)
[2020-03-10 06:03] LABS: ALBUMIN 1.7 g/dL (3.5-5.0); ALBUMIN/GLOBULIN RATIO 0.5 (0.8-2.0); CREATININE, SERUM 2.71 mg/dL (0.72-1.25)
[2020-03-10 06:04] LABS: CALCIUM 6.7 mg/dL (8.4-10.2)
[2020-03-10] MEDS: NICOTINE 21 MG/EA PATCH TOP SCH (08:05)
[2020-03-10] MEDS: ASCORBIC ACID 500 MG TAB PO SCH ×2 (08:05→17:19)
[2020-03-10] MEDS: METOPROLOL TARTRATE 50 MG TAB PO SCH ×2 (08:05→17:24)
[2020-03-10] MEDS: CLOPIDOGREL BISULFATE 75 MG TAB PO SCH (08:05)
[2020-03-10] MEDS: ASPIRIN 81 MG CHEW TAB PO SCH (08:05)
[2020-03-10] MEDS: CHOLECALCIFEROL 1,000 UNIT TAB PO SCH (08:05)
[2020-03-10] MEDS: DEXAMETHASONE SOD PHOS INJ 4 MG/ML VIAL IV SCH (08:05)
[2020-03-10] MEDS: FAMOTIDINE 20 MG/2 ML VIAL IV SCH ×2 (08:05→17:18)
[2020-03-10] MEDS: NOREPINEPHRINE 8 MG/D5W 250 ML 250 ML IV SCH (10:00)
[2020-03-10 15:40] LABS: HEMOGLOBIN 9.1 g/dL (14.0-18.0)
[2020-03-10] MEDS ORDERED: SODIUM CHLORIDE 0.9% 250ML 250 ML IV ONE (15:45)
[2020-03-10] MEDS: INSULIN GLARGINE 100 UNITS/ML VIAL SQ SCH (19:40)
[2020-03-11] VITALS (23 sets, daily range): BP systolic 87–190; BP diastolic 42–82
[2020-03-11 05:52] LABS: BASOPHILS % 0.1 % (0.0-1.0); HEMATOCRIT 28.4 % (38.2-49.6); HEMOGLOBIN 9.5 g/dL (14.0-18.0); LYMPHOCYTES # (AUTO) 0.4 (1.0-3.2); LYMPHOCYTES % 2.3 % (18.0-39.1); MEAN CORPUSCULAR HEMOGLOBIN 29.7 pg (28-32); MEAN CORPUSCULAR HGB CONC 33.5 g/dL (31-35); MEAN CORPUSCULAR VOLUME 88.8 fL (81-99); MONOCYTES # (AUTO) 1.6 (0.2-0.8); MONOCYTES % 9.5 % (4.4-11.3); NEUTROPHILS # (AUTO) 14.4 (2.1-6.9); PLATELET COUNT 277 x10e3/uL (140-360); RED CELL DISTRIBUTION WIDTH 15.4 % (11.7-14.4)
[2020-03-11] MEDS: INSULIN LISPRO 100 UNIT/1 ML 3ML VIAL SQ SCH ×4 (06:00→23:59)
[2020-03-11 06:19] LABS: ALBUMIN 1.8 g/dL (3.5-5.0); ALBUMIN/GLOBULIN RATIO 0.5 (0.8-2.0); ANION GAP 23.6 mmol/L (8-16); CREATININE, SERUM 3.41 mg/dL (0.72-1.25); POTASSIUM 4.6 mmol/L (3.5-5.1)
[2020-03-11 06:22] LABS: CALCIUM 6.7 mg/dL (8.4-10.2)
[2020-03-11] MEDS: FAMOTIDINE 20 MG/2 ML VIAL IV SCH ×2 (08:30→17:00)
[2020-03-11] MEDS: NICOTINE 21 MG/EA PATCH TOP SCH (08:30)
[2020-03-11] MEDS: ASCORBIC ACID 500 MG TAB PO SCH ×2 (08:30→17:00)
[2020-03-11] MEDS: ASPIRIN 81 MG CHEW TAB PO SCH (08:30)
[2020-03-11] MEDS: DEXAMETHASONE SOD PHOS INJ 4 MG/ML VIAL IV SCH (08:30)
[2020-03-11] MEDS: METOPROLOL TARTRATE 50 MG TAB PO SCH ×2 (08:30→17:00)
[2020-03-11] MEDS: CLOPIDOGREL BISULFATE 75 MG TAB PO SCH (08:30)
[2020-03-11] MEDS: CHOLECALCIFEROL 1,000 UNIT TAB PO SCH (08:30)
[2020-03-11] MEDS: NOREPINEPHRINE 8 MG/D5W 250 ML 250 ML IV SCH (10:00)
[2020-03-11] MEDS: INSULIN GLARGINE 100 UNITS/ML VIAL SQ SCH (21:25)
[2020-03-11] MEDS: DEXMEDETOMIDINE 200MCG/NS 50ML 50 ML IV PRN (23:21)
[2020-03-12] VITALS (25 sets, daily range): BP systolic 122–208; BP diastolic 56–104
[2020-03-12] MEDS: INSULIN LISPRO 100 UNIT/1 ML 3ML VIAL SQ SCH ×4 (06:00→17:48)
[2020-03-12 06:48] LABS: BASOPHILS % 0.1 % (0.0-1.0); HEMATOCRIT 27.5 % (38.2-49.6); HEMOGLOBIN 9.1 g/dL (14.0-18.0); LYMPHOCYTES # (AUTO) 0.4 (1.0-3.2); LYMPHOCYTES % 2.8 % (18.0-39.1); MEAN CORPUSCULAR HEMOGLOBIN 29.8 pg (28-32); MEAN CORPUSCULAR HGB CONC 33.1 g/dL (31-35); MEAN CORPUSCULAR VOLUME 90.2 fL (81-99); MONOCYTES # (AUTO) 0.5 (0.2-0.8); MONOCYTES % 3.7 % (4.4-11.3); NEUTROPHILS # (AUTO) 13.2 (2.1-6.9); NEUTROPHILS % 92.6 % (38.7-80.0); PLATELET COUNT 333 x10e3/uL (140-360); RED BLOOD COUNT 3.05 x10e6/uL (4.3-5.7); RED CELL DISTRIBUTION WIDTH 15.8 % (11.7-14.4)
[2020-03-12] MEDS: DEXMEDETOMIDINE 200MCG/NS 50ML 50 ML IV PRN ×2 (06:56→09:20)
[2020-03-12 07:45] LABS: PLATELET ESTIMATE ADEQUATE; PLATELET MORPHOLOGY COMMENT NORMAL; RBC MORPHOLOGY COMMENT NORMAL
[2020-03-12] MEDS: ASPIRIN 81 MG CHEW TAB PO SCH (08:17)
[2020-03-12] MEDS: FAMOTIDINE 20 MG/2 ML VIAL IV SCH ×2 (08:17→16:59)
[2020-03-12] MEDS: CLOPIDOGREL BISULFATE 75 MG TAB PO SCH (08:18)
[2020-03-12] MEDS: CHOLECALCIFEROL 1,000 UNIT TAB PO SCH (08:18)
[2020-03-12] MEDS: ASCORBIC ACID 500 MG TAB PO SCH ×2 (08:18→16:52)
[2020-03-12] MEDS: NICOTINE 21 MG/EA PATCH TOP SCH (08:18)
[2020-03-12] MEDS: METOPROLOL TARTRATE 50 MG TAB PO SCH ×2 (08:19→16:52)
[2020-03-12] MEDS: NOREPINEPHRINE 8 MG/D5W 250 ML 250 ML IV SCH (09:20)
[2020-03-12] MEDS ORDERED: PANTOPRAZOLE 40 MG 10ML VIAL IV ONE (11:30)
[2020-03-12 11:39] LABS: ANION GAP 20.5 mmol/L (8-16); CREATININE, SERUM 3.51 mg/dL (0.72-1.25); POTASSIUM 4.5 mmol/L (3.5-5.1)
[2020-03-12 12:02] LABS: CALCIUM 6.9 mg/dL (8.4-10.2)
[2020-03-12] MEDS: DEXTROSE 50% SYRINGE 50 ML IV PRN (12:30)
[2020-03-12] MEDS: PANTOPRAZOL 40MG/SOD CHL 0.9% 50 ML IV SCH ×3 (13:10→22:04)
[2020-03-12] MEDS: HYDRALAZINE HCL 20 MG/ML VIAL IV PRN (13:55)
[2020-03-12] MEDS: NITROGLYCERIN/D5W 200 MCG/ML 250 ML IV SCH (16:57)
[2020-03-12 17:49] LABS: ABG HCO3 24 mmol/L (22-26); ABG PCO2 27 mmHg (35-45); ABG PH 7.57 (7.35-7.45); ABG PO2 58 mmHg (80-105); ABG TCO2 25
[2020-03-12] MEDS: INSULIN GLARGINE 100 UNITS/ML VIAL SQ SCH (21:56)
[2020-03-13] VITALS (24 sets, daily range): BP systolic 84–171; BP diastolic 48–88
[2020-03-13] MEDS: PANTOPRAZOL 40MG/SOD CHL 0.9% 50 ML IV SCH ×5 (03:03→23:00)
[2020-03-13] MEDS: INSULIN LISPRO 100 UNIT/1 ML 3ML VIAL SQ SCH ×4 (06:00→18:00)
[2020-03-13 08:17] LABS: BASOPHILS % 0.2 % (0.0-1.0); EOSINOPHILS % 0.1 % (0.0-6.0); HEMATOCRIT 23.3 % (38.2-49.6); HEMOGLOBIN 7.6 g/dL (14.0-18.0); LYMPHOCYTES # (AUTO) 0.3 (1.0-3.2); LYMPHOCYTES % 2.1 % (18.0-39.1); MEAN CORPUSCULAR HEMOGLOBIN 29.8 pg (28-32); MEAN CORPUSCULAR HGB CONC 32.6 g/dL (31-35); MEAN CORPUSCULAR VOLUME 91.4 fL (81-99); MONOCYTES # (AUTO) 0.4 (0.2-0.8); MONOCYTES % 2.8 % (4.4-11.3); NEUTROPHILS # (AUTO) 12.4 (2.1-6.9); PLATELET COUNT 307 x10e3/uL (140-360); RED BLOOD COUNT 2.55 x10e6/uL (4.3-5.7)
[2020-03-13 08:36] LABS: ALBUMIN 1.7 g/dL (3.5-5.0); ALBUMIN/GLOBULIN RATIO 0.5 (0.8-2.0); CREATININE, SERUM 4.03 mg/dL (0.72-1.25)
[2020-03-13 08:42] LABS: CALCIUM 6.5 mg/dL (8.4-10.2)
[2020-03-13] MEDS: CLOPIDOGREL BISULFATE 75 MG TAB PO SCH ×2 (09:00→10:26)
[2020-03-13] MEDS: METOPROLOL TARTRATE 50 MG TAB PO SCH ×3 (09:00→16:51)
[2020-03-13] MEDS: ASCORBIC ACID 500 MG TAB PO SCH ×3 (09:00→16:51)
[2020-03-13] MEDS: CHOLECALCIFEROL 1,000 UNIT TAB PO SCH ×2 (09:00→10:26)
[2020-03-13] MEDS: ASPIRIN 81 MG CHEW TAB PO SCH ×2 (09:00→10:26)
[2020-03-13] MEDS ORDERED: AMIODARONE HCL 150 MG/100 ML BAG IV NR (09:45)
[2020-03-13] MEDS ORDERED: AMIODARONE HCL 900 MG in DEXTROSE 5% 500ML 500 ML IV SCH (09:45)
[2020-03-13] MEDS: NOREPINEPHRINE 8 MG/D5W 250 ML 250 ML IV SCH (10:00)
[2020-03-13] MEDS: NICOTINE 21 MG/EA PATCH TOP SCH (10:26)
[2020-03-13] MEDS: FAMOTIDINE 20 MG/2 ML VIAL IV SCH ×2 (10:27→17:16)
[2020-03-13] MEDS: NITROGLYCERIN/D5W 200 MCG/ML 250 ML IV SCH (10:50)
[2020-03-13 11:52] LABS: BAND NEUTROPHILS % (MANUAL) 3 %; LYMPHOCYTES % (MANUAL) 5 % (19-48); NEUTROPHILS % (MANUAL) 92 % (40-74); TOXIC GRANULATION SLIGHT
[2020-03-13 11:53] LABS: ANISOCYTOSIS SLIGHT; HYPOCHROMASIA SLIGHT; PLATELET ESTIMATE SLIGHTLY INCREASED; POIKILOCYTOSIS SLIGHT; RBC MORPHOLOGY COMMENT ABNORMAL
[2020-03-13 11:54] LABS: PLATELET MORPHOLOGY COMMENT NORMAL
[2020-03-13 18:01] LABS: HEMATOCRIT 23.5 % (38.2-49.6); HEMOGLOBIN 7.8 g/dL (14.0-18.0)
[2020-03-13] MEDS: INSULIN GLARGINE 100 UNITS/ML VIAL SQ SCH (21:00)
[2020-03-14] VITALS (24 sets, daily range): BP systolic 114–167; BP diastolic 59–85
[2020-03-14] MEDS: PANTOPRAZOL 40MG/SOD CHL 0.9% 50 ML IV SCH ×4 (04:00→19:00)
[2020-03-14 05:54] LABS: BASOPHILS % 0.2 % (0.0-1.0); EOSINOPHILS % 0.1 % (0.0-6.0); HEMOGLOBIN 7.2 g/dL (14.0-18.0); LYMPHOCYTES # (AUTO) 0.3 (1.0-3.2); LYMPHOCYTES % 2.3 % (18.0-39.1); MEAN CORPUSCULAR HEMOGLOBIN 30.4 pg (28-32); MEAN CORPUSCULAR HGB CONC 32.7 g/dL (31-35); MEAN CORPUSCULAR VOLUME 92.8 fL (81-99); MONOCYTES # (AUTO) 0.4 (0.2-0.8); MONOCYTES % 3.2 % (4.4-11.3); NEUTROPHILS # (AUTO) 10.2 (2.1-6.9); NEUTROPHILS % 93.2 % (38.7-80.0); PLATELET COUNT 276 x10e3/uL (140-360); RED BLOOD COUNT 2.37 x10e6/uL (4.3-5.7); RED CELL DISTRIBUTION WIDTH 16.1 % (11.7-14.4)
[2020-03-14] MEDS: INSULIN LISPRO 100 UNIT/1 ML 3ML VIAL SQ SCH ×4 (06:00→17:51)
[2020-03-14 06:19] LABS: ANION GAP 19.8 mmol/L (8-16); CREATININE, SERUM 3.27 mg/dL (0.72-1.25); POTASSIUM 3.8 mmol/L (3.5-5.1)
[2020-03-14 06:36] LABS: CALCIUM 6.7 mg/dL (8.4-10.2)
[2020-03-14] MEDS: ASPIRIN 81 MG CHEW TAB PO SCH (08:35)
[2020-03-14] MEDS: METOPROLOL TARTRATE 50 MG TAB PO SCH ×2 (08:35→16:05)
[2020-03-14] MEDS: CHOLECALCIFEROL 1,000 UNIT TAB PO SCH (08:35)
[2020-03-14] MEDS: CLOPIDOGREL BISULFATE 75 MG TAB PO SCH (08:35)
[2020-03-14] MEDS: ASCORBIC ACID 500 MG TAB PO SCH ×2 (08:35→16:05)
[2020-03-14] MEDS: FAMOTIDINE 20 MG/2 ML VIAL IV SCH ×2 (08:59→16:05)
[2020-03-14] MEDS: NICOTINE 21 MG/EA PATCH TOP SCH (08:59)
[2020-03-14] MEDS: NOREPINEPHRINE 8 MG/D5W 250 ML 250 ML IV SCH (09:07)
[2020-03-14] MEDS ORDERED: CALCIUM CHLORIDE 13.6 MEQ in SODIUM CHLORIDE 0.9% 100 ML 100 ML IV ONE (15:00)
[2020-03-14] MEDS: NITROGLYCERIN/D5W 200 MCG/ML 250 ML IV SCH (15:10)
[2020-03-14] MEDS: INSULIN GLARGINE 100 UNITS/ML VIAL SQ SCH (21:00)
[2020-03-15] VITALS (27 sets, daily range): BP systolic 101–173; BP diastolic 63–115
[2020-03-15] MEDS: PANTOPRAZOL 40MG/SOD CHL 0.9% 50 ML IV SCH ×4 (05:11→15:41)
[2020-03-15] MEDS: INSULIN LISPRO 100 UNIT/1 ML 3ML VIAL SQ SCH ×4 (06:00→17:23)
[2020-03-15] MEDS: NITROGLYCERIN/D5W 200 MCG/ML 250 ML IV SCH ×2 (06:55→22:30)
[2020-03-15 07:51] LABS: EOSINOPHILS % 0.3 % (0.0-6.0); LYMPHOCYTES # (AUTO) 0.2 (1.0-3.2); LYMPHOCYTES % 3.4 % (18.0-39.1); MEAN CORPUSCULAR HEMOGLOBIN 29.5 pg (28-32); MEAN CORPUSCULAR HGB CONC 31.7 g/dL (31-35); MEAN CORPUSCULAR VOLUME 93.2 fL (81-99); MONOCYTES # (AUTO) 0.3 (0.2-0.8); MONOCYTES % 3.8 % (4.4-11.3); NEUTROPHILS # (AUTO) 6.5 (2.1-6.9); NEUTROPHILS % 91.9 % (38.7-80.0); PLATELET COUNT 283 x10e3/uL (140-360); RED BLOOD COUNT 2.34 x10e6/uL (4.3-5.7); RED CELL DISTRIBUTION WIDTH 15.9 % (11.7-14.4)
[2020-03-15 08:03] LABS: HEMATOCRIT 21.8 % (38.2-49.6); HEMOGLOBIN 6.9 g/dL (14.0-18.0)
[2020-03-15 08:17] LABS: CREATININE, SERUM 3.85 mg/dL (0.72-1.25)
[2020-03-15] MEDS: ASPIRIN 81 MG CHEW TAB PO SCH ×2 (08:19→15:41)
[2020-03-15] MEDS: FAMOTIDINE 20 MG/2 ML VIAL IV SCH ×2 (08:19→16:45)
[2020-03-15] MEDS: METOPROLOL TARTRATE 50 MG TAB PO SCH ×3 (08:19→16:45)
[2020-03-15] MEDS: CLOPIDOGREL BISULFATE 75 MG TAB PO SCH ×2 (08:19→15:41)
[2020-03-15] MEDS: ASCORBIC ACID 500 MG TAB PO SCH ×2 (08:20→16:45)
[2020-03-15] MEDS: NOREPINEPHRINE 8 MG/D5W 250 ML 250 ML IV SCH (08:20)
[2020-03-15] MEDS: CHOLECALCIFEROL 1,000 UNIT TAB PO SCH (08:20)
[2020-03-15] MEDS: NICOTINE 21 MG/EA PATCH TOP SCH (08:20)
[2020-03-15 08:42] LABS: CALCIUM 6.9 mg/dL (8.4-10.2)
[2020-03-15] MEDS ORDERED: DEXAMETHASONE SOD PHOS 10 MG/1 ML VIAL IV ONE (10:00)
[2020-03-15] MEDS ORDERED: SODIUM CHLORIDE 0.9% 250ML 250 ML IV ONE (10:00)
[2020-03-15] MEDS ORDERED: FUROSEMIDE INJ 10 MG/ML 2 ML VIAL IV ONE (10:00)
[2020-03-15] MEDS ORDERED: FAMOTIDINE 20 MG/2 ML VIAL IV ONE (10:00)
[2020-03-15] MEDS ORDERED: WATER STERILE 10 ML VIAL INJ PRN (10:15)
[2020-03-15] MEDS ORDERED: DEXAMETHASONE SOD PHOS 10 MG/1 ML VIAL ONE (14:54)
[2020-03-15] MEDS ORDERED: PANTOPRAZOLE 40 MG 10ML VIAL IV ONE (17:45)
[2020-03-15] MEDS ORDERED: CALCIUM CHLORIDE 13.6 MEQ in SODIUM CHLORIDE 0.9% 100 ML 100 ML IV ONE (21:00)
[2020-03-15] MEDS: INSULIN GLARGINE 100 UNITS/ML VIAL SQ SCH (22:01)
[2020-03-15] MEDS ORDERED: CALCIUM CHLORIDE 10% SYRINGE 10 ML IV ONE (23:30)
[2020-03-15] MEDS ORDERED: SODIUM CHLORIDE 0.9% 100 ML ONE (23:33)
[2020-03-16] VITALS (31 sets, daily range): BP systolic 102–192; BP diastolic 65–121
[2020-03-16] MEDS: INSULIN LISPRO 100 UNIT/1 ML 3ML VIAL SQ SCH ×4 (00:02→18:00)
[2020-03-16 04:33] LABS: BASOPHILS % 0.2 % (0.0-1.0); HEMATOCRIT 26.3 % (38.2-49.6); HEMOGLOBIN 8.4 g/dL (14.0-18.0); LYMPHOCYTES # (AUTO) 0.2 (1.0-3.2); LYMPHOCYTES % 3.3 % (18.0-39.1); MEAN CORPUSCULAR HEMOGLOBIN 29.2 pg (28-32); MEAN CORPUSCULAR HGB CONC 31.9 g/dL (31-35); MEAN CORPUSCULAR VOLUME 91.3 fL (81-99); MONOCYTES # (AUTO) 0.1 (0.2-0.8); MONOCYTES % 2.4 % (4.4-11.3); NEUTROPHILS # (AUTO) 4.2 (2.1-6.9); NEUTROPHILS % 93.7 % (38.7-80.0); PLATELET COUNT 289 x10e3/uL (140-360); RED BLOOD COUNT 2.88 x10e6/uL (4.3-5.7); RED CELL DISTRIBUTION WIDTH 15.1 % (11.7-14.4)
[2020-03-16 04:51] LABS: ANION GAP 23.1 mmol/L (8-16); CALCIUM 7.5 mg/dL (8.4-10.2); CREATININE, SERUM 4.3 mg/dL (0.72-1.25); POTASSIUM 4.1 mmol/L (3.5-5.1)
[2020-03-16] MEDS: ASCORBIC ACID 500 MG TAB PO SCH ×2 (09:00→16:57)
[2020-03-16] MEDS: ASPIRIN 81 MG CHEW TAB PO SCH (09:00)
[2020-03-16] MEDS ORDERED: PRAMIPEXOLE DIHYDROCHLORIDE 0.25 MG TAB PO SCH (09:00)
[2020-03-16] MEDS: CHOLECALCIFEROL 1,000 UNIT TAB PO SCH (09:00)
[2020-03-16] MEDS: METOPROLOL TARTRATE 50 MG TAB PO SCH ×2 (09:00→16:58)
[2020-03-16] MEDS: CLOPIDOGREL BISULFATE 75 MG TAB PO SCH (09:00)
[2020-03-16] MEDS: NOREPINEPHRINE 8 MG/D5W 250 ML 250 ML IV SCH (10:00)
[2020-03-16] MEDS: FAMOTIDINE 20 MG/2 ML VIAL IV SCH ×2 (11:27→16:57)
[2020-03-16] MEDS: PANTOPRAZOLE 40 MG 10ML VIAL IV SCH (11:27)
[2020-03-16] MEDS: NICOTINE 21 MG/EA PATCH TOP SCH (11:27)
[2020-03-16] MEDS ORDERED: HEPARIN SOD (PORCINE) 1000 UNIT/ML SDV IV PRN (11:30)
[2020-03-16] MEDS: AMIODARONE HCL 200 MG TAB NG SCH (16:58)
[2020-03-16] MEDS: HYDRALAZINE HCL 20 MG/ML VIAL IV PRN (20:38)
[2020-03-16] MEDS: NITROGLYCERIN/D5W 200 MCG/ML 250 ML IV SCH (21:00)
[2020-03-16] MEDS: INSULIN GLARGINE 100 UNITS/ML VIAL SQ SCH (21:07)
[2020-03-17] VITALS (28 sets, daily range): BP systolic 113–167; BP diastolic 57–77
[2020-03-17] MEDS: INSULIN LISPRO 100 UNIT/1 ML 3ML VIAL SQ SCH ×4 (00:28→17:44)
[2020-03-17] MEDS: NITROGLYCERIN/D5W 200 MCG/ML 250 ML IV SCH ×2 (02:16→12:30)
[2020-03-17] MEDS: HYDRALAZINE HCL 20 MG/ML VIAL IV PRN (03:31)
[2020-03-17] MEDS: NICOTINE 21 MG/EA PATCH TOP SCH (08:37)
[2020-03-17] MEDS: FAMOTIDINE 20 MG/2 ML VIAL IV SCH ×2 (08:37→17:19)
[2020-03-17] MEDS: ASPIRIN 81 MG CHEW TAB PO SCH (08:37)
[2020-03-17] MEDS: CLOPIDOGREL BISULFATE 75 MG TAB PO SCH (08:37)
[2020-03-17] MEDS: PANTOPRAZOLE 40 MG 10ML VIAL IV SCH (08:37)
[2020-03-17] MEDS: AMIODARONE HCL 200 MG TAB NG SCH ×2 (08:37→17:19)
[2020-03-17] MEDS: ASCORBIC ACID 500 MG TAB PO SCH ×2 (08:37→17:19)
[2020-03-17] MEDS: CHOLECALCIFEROL 1,000 UNIT TAB PO SCH (08:37)
[2020-03-17] MEDS: PRAMIPEXOLE DIHYDROCHLORIDE 0.25 MG TAB PO SCH (08:37)
[2020-03-17] MEDS: METOPROLOL TARTRATE 50 MG TAB PO SCH ×2 (08:38→17:19)
[2020-03-17] MEDS: NOREPINEPHRINE 8 MG/D5W 250 ML 250 ML IV SCH (08:39)
[2020-03-17] MEDS: FUROSEMIDE INJ 10 MG/ML 4 ML VIAL IV SCH (15:58)
[2020-03-17] MEDS: INSULIN GLARGINE 100 UNITS/ML VIAL SQ SCH (20:49)
[2020-03-18] VITALS (23 sets, daily range): BP systolic 135–176; BP diastolic 59–82
[2020-03-18] MEDS: NITROGLYCERIN/D5W 200 MCG/ML 250 ML IV SCH ×4 (04:35→20:16)
[2020-03-18] MEDS: HYDRALAZINE HCL 20 MG/ML VIAL IV PRN (05:07)
[2020-03-18] MEDS: INSULIN LISPRO 100 UNIT/1 ML 3ML VIAL SQ SCH ×4 (06:00→16:07)
[2020-03-18 06:16] LABS: BASOPHILS % 0.4 % (0.0-1.0); EOSINOPHILS % 0.7 % (0.0-6.0); HEMATOCRIT 25.2 % (38.2-49.6); HEMOGLOBIN 8.2 g/dL (14.0-18.0); LYMPHOCYTES # (AUTO) 0.2 (1.0-3.2); LYMPHOCYTES % 7.9 % (18.0-39.1); MEAN CORPUSCULAR HEMOGLOBIN 29.2 pg (28-32); MEAN CORPUSCULAR HGB CONC 32.5 g/dL (31-35); MEAN CORPUSCULAR VOLUME 89.7 fL (81-99); MONOCYTES # (AUTO) 0.2 (0.2-0.8); MONOCYTES % 7.2 % (4.4-11.3); NEUTROPHILS # (AUTO) 2.3 (2.1-6.9); NEUTROPHILS % 83.4 % (38.7-80.0); PLATELET COUNT 220 x10e3/uL (140-360); RED BLOOD COUNT 2.81 x10e6/uL (4.3-5.7); RED CELL DISTRIBUTION WIDTH 14.8 % (11.7-14.4)
[2020-03-18 06:50] LABS: ALBUMIN 1.5 g/dL (3.5-5.0); ALBUMIN/GLOBULIN RATIO 0.5 (0.8-2.0); ANION GAP 16.1 mmol/L (8-16); CREATININE, SERUM 2.92 mg/dL (0.72-1.25); POTASSIUM 3.1 mmol/L (3.5-5.1)
[2020-03-18 06:57] LABS: CALCIUM 6.6 mg/dL (8.4-10.2)
[2020-03-18] MEDS ORDERED: CALCIUM GLUCONATE 10% INJ 4.65 MEQ in SODIUM CHLORIDE 0.9% 50ML 50 ML IV ONE (09:00)
[2020-03-18 09:17] LABS: ANISOCYTOSIS SLIGHT; EOSINOPHILS % (MANUAL) 4 % (0-7); LYMPHOCYTES % (MANUAL) 4 % (19-48); METAMYELOCYTES % (MANUAL) 1 % (0-0); MONOCYTES % (MANUAL) 5 % (3.4-9.0); NEUTROPHILS % (MANUAL) 86 % (40-74); PLATELET ESTIMATE ADEQUATE; PLATELET MORPHOLOGY COMMENT NORMAL; RBC MORPHOLOGY COMMENT NORMAL
[2020-03-18] MEDS: AMIODARONE HCL 200 MG TAB NG SCH ×2 (09:55→17:08)
[2020-03-18] MEDS: BALSAM PERU/CASTOR OIL 60 GM OINT...G. TP SCH (09:55)
[2020-03-18] MEDS: CLOPIDOGREL BISULFATE 75 MG TAB PO SCH (09:55)
[2020-03-18] MEDS: ASPIRIN 81 MG CHEW TAB PO SCH (09:55)
[2020-03-18] MEDS: FAMOTIDINE 20 MG/2 ML VIAL IV SCH ×2 (09:55→17:08)
[2020-03-18] MEDS: PRAMIPEXOLE DIHYDROCHLORIDE 0.25 MG TAB PO SCH (09:55)
[2020-03-18] MEDS: CHOLECALCIFEROL 1,000 UNIT TAB PO SCH (09:55)
[2020-03-18] MEDS: ASCORBIC ACID 500 MG TAB PO SCH ×2 (09:55→17:08)
[2020-03-18] MEDS: PANTOPRAZOLE 40 MG 10ML VIAL IV SCH (09:55)
[2020-03-18] MEDS: NICOTINE 21 MG/EA PATCH TOP SCH (09:55)
[2020-03-18] MEDS: FUROSEMIDE INJ 10 MG/ML 4 ML VIAL IV SCH (09:56)
[2020-03-18] MEDS: NOREPINEPHRINE 8 MG/D5W 250 ML 250 ML IV SCH (10:00)
[2020-03-18] MEDS: METOPROLOL TARTRATE 50 MG TAB PO SCH ×2 (10:18→17:08)
[2020-03-18] MEDS ORDERED: POTASSIUM CHLORIDE 20MEQ/100ML 100 ML IV ONE (11:45)
[2020-03-18] MEDS: INSULIN GLARGINE 100 UNITS/ML VIAL SQ SCH (21:00)
[2020-03-19] VITALS (19 sets, daily range): BP systolic 127–192; BP diastolic 56–111
[2020-03-19] MEDS: INSULIN LISPRO 100 UNIT/1 ML 3ML VIAL SQ SCH ×4 (05:53→17:14)
[2020-03-19 06:04] LABS: EOSINOPHILS # (AUTO) 0.1 (0.0-0.4); EOSINOPHILS % 1.6 % (0.0-6.0); HEMATOCRIT 24.9 % (38.2-49.6); HEMOGLOBIN 8.2 g/dL (14.0-18.0); LYMPHOCYTES # (AUTO) 0.2 (1.0-3.2); LYMPHOCYTES % 5.9 % (18.0-39.1); MEAN CORPUSCULAR HEMOGLOBIN 29.1 pg (28-32); MEAN CORPUSCULAR HGB CONC 32.9 g/dL (31-35); MEAN CORPUSCULAR VOLUME 88.3 fL (81-99); MONOCYTES # (AUTO) 0.2 (0.2-0.8); MONOCYTES % 6.9 % (4.4-11.3); NEUTROPHILS # (AUTO) 2.7 (2.1-6.9); NEUTROPHILS % 85.3 % (38.7-80.0); PLATELET COUNT 201 x10e3/uL (140-360); RED BLOOD COUNT 2.82 x10e6/uL (4.3-5.7); RED CELL DISTRIBUTION WIDTH 14.8 % (11.7-14.4)
[2020-03-19 06:36] LABS: CREATININE, SERUM 3.14 mg/dL (0.72-1.25)
[2020-03-19 06:41] LABS: CALCIUM 6.5 mg/dL (8.4-10.2)
[2020-03-19 08:04] LABS: EOSINOPHILS % (MANUAL) 1 % (0-7); LYMPHOCYTES % (MANUAL) 4 % (19-48); MONOCYTES % (MANUAL) 6 % (3.4-9.0); NEUTROPHILS % (MANUAL) 89 % (40-74)
[2020-03-19 08:05] LABS: PLATELET ESTIMATE ADEQUATE; PLATELET MORPHOLOGY COMMENT NORMAL; RBC MORPHOLOGY COMMENT NORMAL
[2020-03-19] MEDS: FUROSEMIDE INJ 10 MG/ML 4 ML VIAL IV SCH (08:32)
[2020-03-19] MEDS: FAMOTIDINE 20 MG/2 ML VIAL IV SCH ×2 (08:32→16:28)
[2020-03-19] MEDS: PANTOPRAZOLE 40 MG 10ML VIAL IV SCH (08:32)
[2020-03-19] MEDS: ASPIRIN 81 MG CHEW TAB PO SCH ×2 (08:32→15:56)
[2020-03-19] MEDS: AMIODARONE HCL 200 MG TAB NG SCH ×3 (08:32→16:28)
[2020-03-19] MEDS: CLOPIDOGREL BISULFATE 75 MG TAB PO SCH ×2 (08:34→15:56)
[2020-03-19] MEDS: PRAMIPEXOLE DIHYDROCHLORIDE 0.25 MG TAB PO SCH ×2 (08:34→15:56)
[2020-03-19] MEDS: ASCORBIC ACID 500 MG TAB PO SCH ×3 (08:34→16:29)
[2020-03-19] MEDS: CHOLECALCIFEROL 1,000 UNIT TAB PO SCH ×2 (08:35→15:56)
[2020-03-19] MEDS: NICOTINE 21 MG/EA PATCH TOP SCH (08:35)
[2020-03-19] MEDS: METOPROLOL TARTRATE 50 MG TAB PO SCH ×2 (09:00→16:29)
[2020-03-19] MEDS ORDERED: CALCIUM GLUCONATE 10% INJ 4.65 MEQ in SODIUM CHLORIDE 0.9% 50ML 50 ML IV PRN (09:45)
[2020-03-19] MEDS ORDERED: POTASSIUM CHLORIDE 20MEQ/100ML 200 ML IV ONE (09:45)
[2020-03-19] MEDS: NOREPINEPHRINE 8 MG/D5W 250 ML 250 ML IV SCH (10:00)
[2020-03-19] MEDS ORDERED: DEXAMETHASONE SOD PHOS 10 MG/1 ML VIAL IV SCH (12:00)
[2020-03-19] MEDS: ENOXAPARIN SOD INJ 40 MG/0.4 ML SYR SC SCH (12:42)
[2020-03-19] MEDS: BALSAM PERU/CASTOR OIL 60 GM OINT...G. TP SCH (14:53)
[2020-03-19] MEDS: INSULIN GLARGINE 100 UNITS/ML VIAL SQ SCH (20:43)
[2020-03-19] MEDS: HYDRALAZINE HCL 20 MG/ML VIAL IV PRN (21:00)
[2020-03-20] VITALS (16 sets, daily range): BP systolic 94–166; BP diastolic 46–88
[2020-03-20] MEDS: INSULIN LISPRO 100 UNIT/1 ML 3ML VIAL SQ SCH ×4 (05:46→17:07)
[2020-03-20 06:20] LABS: BASOPHILS % 0.3 % (0.0-1.0); EOSINOPHILS % 0.3 % (0.0-6.0); HEMATOCRIT 27.7 % (38.2-49.6); HEMOGLOBIN 9.1 g/dL (14.0-18.0); LYMPHOCYTES # (AUTO) 0.2 (1.0-3.2); LYMPHOCYTES % 5.1 % (18.0-39.1); MEAN CORPUSCULAR HEMOGLOBIN 29.2 pg (28-32); MEAN CORPUSCULAR HGB CONC 32.9 g/dL (31-35); MEAN CORPUSCULAR VOLUME 88.8 fL (81-99); MONOCYTES # (AUTO) 0.3 (0.2-0.8); MONOCYTES % 8.1 % (4.4-11.3); NEUTROPHILS # (AUTO) 3.2 (2.1-6.9); NEUTROPHILS % 85.7 % (38.7-80.0); PLATELET COUNT 183 x10e3/uL (140-360); RED BLOOD COUNT 3.12 x10e6/uL (4.3-5.7); RED CELL DISTRIBUTION WIDTH 14.9 % (11.7-14.4)
[2020-03-20 06:51] LABS: ANION GAP 18.5 mmol/L (8-16); CREATININE, SERUM 3.31 mg/dL (0.72-1.25); POTASSIUM 3.5 mmol/L (3.5-5.1)
[2020-03-20 06:53] LABS: CALCIUM 6.9 mg/dL (8.4-10.2)
[2020-03-20] MEDS: AMIODARONE HCL 200 MG TAB NG SCH ×2 (08:10→17:06)
[2020-03-20] MEDS: FUROSEMIDE INJ 10 MG/ML 4 ML VIAL IV SCH (08:10)
[2020-03-20] MEDS: FAMOTIDINE 20 MG/2 ML VIAL IV SCH ×2 (08:10→17:06)
[2020-03-20] MEDS: PANTOPRAZOLE 40 MG 10ML VIAL IV SCH (08:10)
[2020-03-20] MEDS: ASPIRIN 81 MG CHEW TAB PO SCH (08:10)
[2020-03-20] MEDS: ASCORBIC ACID 500 MG TAB PO SCH ×2 (08:10→17:07)
[2020-03-20] MEDS: PRAMIPEXOLE DIHYDROCHLORIDE 0.25 MG TAB PO SCH (08:10)
[2020-03-20] MEDS: CHOLECALCIFEROL 1,000 UNIT TAB PO SCH (08:11)
[2020-03-20] MEDS: NICOTINE 21 MG/EA PATCH TOP SCH (08:11)
[2020-03-20 08:23] LABS: BAND NEUTROPHILS % (MANUAL) 6 %; LYMPHOCYTES % (MANUAL) 6 % (19-48); MONOCYTES % (MANUAL) 7 % (3.4-9.0); NEUTROPHILS % (MANUAL) 81 % (40-74)
[2020-03-20 08:24] LABS: PLATELET ESTIMATE ADEQUATE; PLATELET MORPHOLOGY COMMENT NORMAL; RBC MORPHOLOGY COMMENT NORMAL
[2020-03-20] MEDS: NOREPINEPHRINE 8 MG/D5W 250 ML 250 ML IV SCH (10:00)
[2020-03-20] MEDS: METOPROLOL TARTRATE 50 MG TAB PO SCH ×2 (10:17→17:07)
[2020-03-20] MEDS: BALSAM PERU/CASTOR OIL 60 GM OINT...G. TP SCH (10:23)
[2020-03-20] MEDS: ENOXAPARIN SOD INJ 40 MG/0.4 ML SYR SC SCH (12:45)
[2020-03-20] MEDS: NITROGLYCERIN/D5W 200 MCG/ML 250 ML IV SCH (13:46)
[2020-03-20] MEDS: CLOPIDOGREL BISULFATE 75 MG TAB PO SCH (13:46)
[2020-03-20] MEDS ORDERED: CENTRAL TPN FORMULA 1 BAG IV SCH (20:00)
[2020-03-20] MEDS: ATORVASTATIN 20 MG TAB PO SCH (20:16)
[2020-03-20] MEDS: INSULIN GLARGINE 100 UNITS/ML VIAL SQ SCH (21:36)
[2020-03-21] VITALS (23 sets, daily range): BP systolic 102–140; BP diastolic 45–83
[2020-03-21] MEDS: INSULIN LISPRO 100 UNIT/1 ML 3ML VIAL SQ SCH ×4 (01:09→16:34)
[2020-03-21 06:14] LABS: BASOPHILS # (AUTO) 0.1 (0.0-0.1); BASOPHILS % 1.2 % (0.0-1.0); HEMATOCRIT 29.6 % (38.2-49.6); HEMOGLOBIN 9.9 g/dL (14.0-18.0); LYMPHOCYTES # (AUTO) 0.2 (1.0-3.2); LYMPHOCYTES % 5.4 % (18.0-39.1); MEAN CORPUSCULAR HEMOGLOBIN 30.3 pg (28-32); MEAN CORPUSCULAR HGB CONC 33.4 g/dL (31-35); MEAN CORPUSCULAR VOLUME 90.5 fL (81-99); MONOCYTES # (AUTO) 0.3 (0.2-0.8); MONOCYTES % 5.8 % (4.4-11.3); NEUTROPHILS # (AUTO) 3.7 (2.1-6.9); NEUTROPHILS % 85.5 % (38.7-80.0); PLATELET COUNT 167 x10e3/uL (140-360); RED BLOOD COUNT 3.27 x10e6/uL (4.3-5.7)
[2020-03-21 06:35] LABS: ALBUMIN 1.4 g/dL (3.5-5.0); ALBUMIN/GLOBULIN RATIO 0.4 (0.8-2.0); ANION GAP 18.9 mmol/L (8-16); CALCIUM 7.1 mg/dL (8.4-10.2); CREATININE, SERUM 3.94 mg/dL (0.72-1.25); POTASSIUM 3.9 mmol/L (3.5-5.1)
[2020-03-21] MEDS: PANTOPRAZOLE 40 MG 10ML VIAL IV SCH (08:20)
[2020-03-21] MEDS: ASPIRIN 81 MG CHEW TAB PO SCH (08:20)
[2020-03-21] MEDS: NICOTINE 21 MG/EA PATCH TOP SCH (08:20)
[2020-03-21] MEDS: FUROSEMIDE INJ 10 MG/ML 4 ML VIAL IV SCH ×2 (08:20→21:10)
[2020-03-21] MEDS: METOPROLOL TARTRATE 50 MG TAB PO SCH ×2 (08:20→16:34)
[2020-03-21] MEDS: ASCORBIC ACID 500 MG TAB PO SCH ×2 (08:20→16:34)
[2020-03-21] MEDS: CHOLECALCIFEROL 1,000 UNIT TAB PO SCH (08:20)
[2020-03-21] MEDS: CLOPIDOGREL BISULFATE 75 MG TAB PO SCH (08:20)
[2020-03-21] MEDS: BALSAM PERU/CASTOR OIL 60 GM OINT...G. TP SCH (08:20)
[2020-03-21] MEDS: AMIODARONE HCL 200 MG TAB NG SCH ×2 (08:20→16:33)
[2020-03-21] MEDS: FAMOTIDINE 20 MG/2 ML VIAL IV SCH (08:20)
[2020-03-21] MEDS: PRAMIPEXOLE DIHYDROCHLORIDE 0.25 MG TAB PO SCH (08:20)
[2020-03-21] MEDS: NOREPINEPHRINE 8 MG/D5W 250 ML 250 ML IV SCH (10:00)
[2020-03-21 11:40] LABS: BAND NEUTROPHILS % (MANUAL) 8 %; LYMPHOCYTES % (MANUAL) 3 % (19-48); NEUTROPHILS % (MANUAL) 86 % (40-74); PROMYELOCYTES % (MANUAL) 3 % (0-0)
[2020-03-21 11:41] LABS: ANISOCYTOSIS SLIGHT; HYPOCHROMASIA SLIGHT; PLATELET ESTIMATE ADEQUATE; PLATELET MORPHOLOGY COMMENT NORMAL
[2020-03-21] MEDS: NITROGLYCERIN/D5W 200 MCG/ML 250 ML IV SCH (14:30)
[2020-03-21] MEDS: ENOXAPARIN SOD INJ 40 MG/0.4 ML SYR SC SCH (14:40)
[2020-03-21] MEDS ORDERED: CENTRAL TPN FORMULA 1 BAG IV SCH (20:00)
[2020-03-21] MEDS: ATORVASTATIN 20 MG TAB PO SCH (20:43)
[2020-03-21] MEDS: INSULIN GLARGINE 100 UNITS/ML VIAL SQ SCH (20:44)
[2020-03-22] VITALS (23 sets, daily range): BP systolic 101–148; BP diastolic 45–90
[2020-03-22] MEDS: INSULIN LISPRO 100 UNIT/1 ML 3ML VIAL SQ SCH ×4 (00:09→17:00)
[2020-03-22] MEDS: FUROSEMIDE INJ 10 MG/ML 4 ML VIAL IV SCH ×3 (05:08→22:02)
[2020-03-22 06:09] LABS: BASOPHILS % 0.2 % (0.0-1.0); EOSINOPHILS % 0.5 % (0.0-6.0); HEMATOCRIT 28.4 % (38.2-49.6); HEMOGLOBIN 9.3 g/dL (14.0-18.0); LYMPHOCYTES # (AUTO) 0.2 (1.0-3.2); LYMPHOCYTES % 4.9 % (18.0-39.1); MEAN CORPUSCULAR HEMOGLOBIN 28.8 pg (28-32); MEAN CORPUSCULAR HGB CONC 32.7 g/dL (31-35); MEAN CORPUSCULAR VOLUME 87.9 fL (81-99); MONOCYTES # (AUTO) 0.2 (0.2-0.8); MONOCYTES % 5.9 % (4.4-11.3); NEUTROPHILS # (AUTO) 3.6 (2.1-6.9); NEUTROPHILS % 87.5 % (38.7-80.0); PLATELET COUNT 167 x10e3/uL (140-360); RED BLOOD COUNT 3.23 x10e6/uL (4.3-5.7); RED CELL DISTRIBUTION WIDTH 15.1 % (11.7-14.4)
[2020-03-22 06:56] LABS: ANION GAP 20.9 mmol/L (8-16); CALCIUM 7.2 mg/dL (8.4-10.2); POTASSIUM 3.9 mmol/L (3.5-5.1)
[2020-03-22] MEDS: PRAMIPEXOLE DIHYDROCHLORIDE 0.25 MG TAB PO SCH (08:22)
[2020-03-22] MEDS: CLOPIDOGREL BISULFATE 75 MG TAB PO SCH (08:22)
[2020-03-22] MEDS: BALSAM PERU/CASTOR OIL 60 GM OINT...G. TP SCH (08:22)
[2020-03-22] MEDS: AMIODARONE HCL 200 MG TAB NG SCH ×2 (08:22→16:23)
[2020-03-22] MEDS: PANTOPRAZOLE 40 MG 10ML VIAL IV SCH (08:22)
[2020-03-22] MEDS: ASCORBIC ACID 500 MG TAB PO SCH ×2 (08:22→16:23)
[2020-03-22] MEDS: ENOXAPARIN 30 MG/0.3 ML SYR SC SCH (08:22)
[2020-03-22] MEDS: ASPIRIN 81 MG CHEW TAB PO SCH (08:22)
[2020-03-22] MEDS: CHOLECALCIFEROL 1,000 UNIT TAB PO SCH (08:22)
[2020-03-22] MEDS: METOPROLOL TARTRATE 50 MG TAB PO SCH ×2 (08:24→16:24)
[2020-03-22] MEDS: NOREPINEPHRINE 8 MG/D5W 250 ML 250 ML IV SCH (08:52)
[2020-03-22] MEDS ORDERED: FAMOTIDINE 20 MG/2 ML VIAL IV SCH (09:00)
[2020-03-22] MEDS: NITROGLYCERIN/D5W 200 MCG/ML 250 ML IV SCH (13:07)
[2020-03-22] MEDS ORDERED: FENTANYL 2,000 MCG/250 ML BAG ONE (14:09)
[2020-03-22 19:19] LABS: ABG HCO3 18 mmol/L (22-26); ABG PCO2 28 mmHg (35-45); ABG PH 7.42 (7.35-7.45); ABG PO2 74 mmHg (80-105)
[2020-03-22] MEDS ORDERED: CENTRAL TPN FORMULA 1 BAG IV SCH (20:00)
[2020-03-22] MEDS: ATORVASTATIN 40 MG TAB PO SCH (21:01)
[2020-03-22] MEDS: INSULIN GLARGINE 100 UNITS/ML VIAL SQ SCH (21:02)
[2020-03-23] VITALS (20 sets, daily range): BP systolic 76–156; BP diastolic 38–79
[2020-03-23] MEDS: INSULIN LISPRO 100 UNIT/1 ML 3ML VIAL SQ SCH ×5 (00:09→23:48)
[2020-03-23 05:22] LABS: ABG PCO2 30 mmHg (35-45); ABG PH 7.38 (7.35-7.45)
[2020-03-23 05:23] LABS: ABG HCO3 18 mmol/L (22-26); ABG PO2 41 mmHg (80-105); ABG TCO2 18
[2020-03-23] MEDS: NOREPINEPHRINE 8 MG/D5W 250 ML 250 ML IV SCH ×4 (05:32→22:44)
[2020-03-23] MEDS: FENTANYL CITRATE INJ 2,000 MCG in SODIUM CHLORIDE 0.9% 250ML 210 ML IV PRN ×2 (05:32→16:49)
[2020-03-23] MEDS: MIDAZOLAM HCL 50 MG in SODIUM CHLORIDE 0.9% 100 ML 90 ML IV PRN ×3 (05:33→22:44)
[2020-03-23 05:50] LABS: BASOPHILS % 1.2 % (0.0-1.0); EOSINOPHILS % 0.4 % (0.0-6.0); HEMATOCRIT 29.4 % (38.2-49.6); HEMOGLOBIN 9.5 g/dL (14.0-18.0); LYMPHOCYTES # (AUTO) 0.1 (1.0-3.2); LYMPHOCYTES % 4.7 % (18.0-39.1); MEAN CORPUSCULAR HEMOGLOBIN 29.7 pg (28-32); MEAN CORPUSCULAR HGB CONC 32.3 g/dL (31-35); MEAN CORPUSCULAR VOLUME 91.9 fL (81-99); MONOCYTES # (AUTO) 0.1 (0.2-0.8); MONOCYTES % 4.3 % (4.4-11.3); NEUTROPHILS # (AUTO) 2.3 (2.1-6.9); NEUTROPHILS % 88.6 % (38.7-80.0); PLATELET COUNT 160 x10e3/uL (140-360); RED CELL DISTRIBUTION WIDTH 15.6 % (11.7-14.4)
[2020-03-23] MEDS: FUROSEMIDE INJ 10 MG/ML 4 ML VIAL IV SCH ×3 (05:58→22:00)
[2020-03-23 06:07] LABS: ANION GAP 21.2 mmol/L (8-16); CALCIUM 7.1 mg/dL (8.4-10.2); CREATININE, SERUM 4.41 mg/dL (0.72-1.25); PHOSPHORUS 6.6 MG/DL (2.3-4.7); POTASSIUM 4.2 mmol/L (3.5-5.1)
[2020-03-23 08:16] LABS: ABG HCO3 21 mmol/L (22-26); ABG PCO2 67 mmHg (35-45); ABG PO2 262 mmHg (80-105); ABG TCO2 23
[2020-03-23] MEDS: CHOLECALCIFEROL 1,000 UNIT TAB PO SCH (08:45)
[2020-03-23] MEDS: ASPIRIN 81 MG CHEW TAB PO SCH (08:45)
[2020-03-23] MEDS: METOPROLOL TARTRATE 50 MG TAB PO SCH ×2 (08:45→16:55)
[2020-03-23] MEDS: AMIODARONE HCL 200 MG TAB NG SCH ×2 (08:45→16:55)
[2020-03-23] MEDS: PANTOPRAZOLE 40 MG 10ML VIAL IV SCH (08:45)
[2020-03-23] MEDS: PRAMIPEXOLE DIHYDROCHLORIDE 0.25 MG TAB PO SCH (08:45)
[2020-03-23] MEDS: BALSAM PERU/CASTOR OIL 60 GM OINT...G. TP SCH (08:45)
[2020-03-23] MEDS: ENOXAPARIN 30 MG/0.3 ML SYR SC SCH (08:45)
[2020-03-23] MEDS: ASCORBIC ACID 500 MG TAB PO SCH ×2 (08:45→16:55)
[2020-03-23] MEDS: CLOPIDOGREL BISULFATE 75 MG TAB PO SCH (08:45)
[2020-03-23 10:51] LABS: BAND NEUTROPHILS % (MANUAL) 4 %; LYMPHOCYTES % (MANUAL) 4 % (19-48); METAMYELOCYTES % (MANUAL) 1 % (0-0); MONOCYTES % (MANUAL) 2 % (3.4-9.0); NEUTROPHILS % (MANUAL) 88 % (40-74)
[2020-03-23 10:53] LABS: TOXIC GRANULATION SLIGHT
[2020-03-23 10:54] LABS: ANISOCYTOSIS SLIGHT; PLATELET ESTIMATE ADEQUATE; PLATELET MORPHOLOGY COMMENT NORMAL; POIKILOCYTOSIS SLIGHT; RBC MORPHOLOGY COMMENT NORMAL
[2020-03-23] MEDS ORDERED: ALBUMIN 25% 12.5GM 0.25 GM/ML BTL IV PRN (12:45)
[2020-03-23] MEDS: CENTRAL TPN FORMULA 1 BAG IV SCH (21:12)
[2020-03-23] MEDS: ATORVASTATIN 40 MG TAB PO SCH (21:12)
[2020-03-23] MEDS: INSULIN GLARGINE 100 UNITS/ML VIAL SQ SCH (21:13)
[2020-03-24] VITALS (20 sets, daily range): BP systolic 83–132; BP diastolic 35–63
[2020-03-24] MEDS: MIDAZOLAM HCL 50 MG in SODIUM CHLORIDE 0.9% 100 ML 90 ML IV PRN (05:16)
[2020-03-24] MEDS: FUROSEMIDE INJ 10 MG/ML 4 ML VIAL IV SCH ×3 (06:00→21:49)
[2020-03-24] MEDS: INSULIN LISPRO 100 UNIT/1 ML 3ML VIAL SQ SCH ×4 (06:07→23:32)
[2020-03-24 06:26] LABS: BASOPHILS % 0.5 % (0.0-1.0); EOSINOPHILS # (AUTO) 0.1 (0.0-0.4); EOSINOPHILS % 1.3 % (0.0-6.0); HEMATOCRIT 26.8 % (38.2-49.6); HEMOGLOBIN 8.4 g/dL (14.0-18.0); LYMPHOCYTES # (AUTO) 0.4 (1.0-3.2); LYMPHOCYTES % 4.7 % (18.0-39.1); MEAN CORPUSCULAR HEMOGLOBIN 28.9 pg (28-32); MEAN CORPUSCULAR HGB CONC 31.3 g/dL (31-35); MEAN CORPUSCULAR VOLUME 92.1 fL (81-99); MONOCYTES # (AUTO) 0.3 (0.2-0.8); MONOCYTES % 3.9 % (4.4-11.3); NEUTROPHILS # (AUTO) 6.9 (2.1-6.9); NEUTROPHILS % 87.3 % (38.7-80.0); PLATELET COUNT 97 x10e3/uL (140-360); RED BLOOD COUNT 2.91 x10e6/uL (4.3-5.7); RED CELL DISTRIBUTION WIDTH 15.6 % (11.7-14.4)
[2020-03-24 06:38] LABS: ALBUMIN 1.4 g/dL (3.5-5.0); ALBUMIN/GLOBULIN RATIO 0.4 (0.8-2.0); CALCIUM 7.4 mg/dL (8.4-10.2); CREATININE, SERUM 2.91 mg/dL (0.72-1.25)
[2020-03-24 06:51] LABS: MAGNESIUM 2.1 MG/DL (1.3-2.1); PHOSPHORUS 5.1 MG/DL (2.3-4.7)
[2020-03-24] MEDS: PANTOPRAZOLE 40 MG 10ML VIAL IV SCH (08:26)
[2020-03-24] MEDS: CHOLECALCIFEROL 1,000 UNIT TAB PO SCH (08:26)
[2020-03-24] MEDS: ASPIRIN 81 MG CHEW TAB PO SCH (08:26)
[2020-03-24] MEDS: PRAMIPEXOLE DIHYDROCHLORIDE 0.25 MG TAB PO SCH (08:26)
[2020-03-24] MEDS: METOPROLOL TARTRATE 50 MG TAB PO SCH ×2 (08:26→17:00)
[2020-03-24] MEDS: ENOXAPARIN 30 MG/0.3 ML SYR SC SCH (08:26)
[2020-03-24] MEDS: ASCORBIC ACID 500 MG TAB PO SCH ×2 (08:26→17:02)
[2020-03-24] MEDS: BALSAM PERU/CASTOR OIL 60 GM OINT...G. TP SCH (08:26)
[2020-03-24] MEDS: CLOPIDOGREL BISULFATE 75 MG TAB PO SCH (08:26)
[2020-03-24] MEDS: AMIODARONE HCL 200 MG TAB NG SCH ×2 (08:26→17:01)
[2020-03-24] MEDS ORDERED: MIDAZOLAM HCL 5MG/ML 10ML VIAL 100 ML BAG IV ONE (13:08)
[2020-03-24] MEDS ORDERED: FENTANYL 2,000 MCG/250 ML BAG ONE (13:08)
[2020-03-24 19:09] LABS: ABG PH 7.15 (7.35-7.45)
[2020-03-24 19:10] LABS: ABG HCO3 23 mmol/L (22-26); ABG PCO2 68 mmHg (35-45); ABG PO2 120 mmHg (80-105); ABG TCO2 25
[2020-03-24] MEDS: CENTRAL TPN FORMULA 1 BAG IV SCH (20:00)
[2020-03-24] MEDS: ATORVASTATIN 40 MG TAB PO SCH (21:03)
[2020-03-24] MEDS: INSULIN GLARGINE 100 UNITS/ML VIAL SQ SCH (21:06)
[2020-03-24] MEDS: NOREPINEPHRINE 8 MG/D5W 250 ML 250 ML IV SCH (22:26)
[2020-03-25] VITALS (18 sets, daily range): BP systolic 83–179; BP diastolic 49–97
[2020-03-25] MEDS: NOREPINEPHRINE 8 MG/D5W 250 ML 250 ML IV SCH (03:30)
[2020-03-25 05:36] LABS: BASOPHILS # (AUTO) 0.1 (0.0-0.1); BASOPHILS % 0.4 % (0.0-1.0); EOSINOPHILS % 0.2 % (0.0-6.0); HEMATOCRIT 27.7 % (38.2-49.6); HEMOGLOBIN 8.5 g/dL (14.0-18.0); LYMPHOCYTES # (AUTO) 0.3 (1.0-3.2); LYMPHOCYTES % 2.3 % (18.0-39.1); MEAN CORPUSCULAR HEMOGLOBIN 28.8 pg (28-32); MEAN CORPUSCULAR HGB CONC 30.7 g/dL (31-35); MEAN CORPUSCULAR VOLUME 93.9 fL (81-99); MONOCYTES # (AUTO) 0.6 (0.2-0.8); MONOCYTES % 5.2 % (4.4-11.3); NEUTROPHILS # (AUTO) 10.8 (2.1-6.9); PLATELET COUNT 110 x10e3/uL (140-360); RED BLOOD COUNT 2.95 x10e6/uL (4.3-5.7); RED CELL DISTRIBUTION WIDTH 16.2 % (11.7-14.4)
[2020-03-25 06:00] LABS: ALBUMIN 1.3 g/dL (3.5-5.0); ALBUMIN/GLOBULIN RATIO 0.4 (0.8-2.0); ANION GAP 22.3 mmol/L (8-16); CALCIUM 7.7 mg/dL (8.4-10.2); CREATININE, SERUM 3.7 mg/dL (0.72-1.25); POTASSIUM 5.3 mmol/L (3.5-5.1)
[2020-03-25] MEDS: FUROSEMIDE INJ 10 MG/ML 4 ML VIAL IV SCH ×3 (06:10→22:36)
[2020-03-25] MEDS: INSULIN LISPRO 100 UNIT/1 ML 3ML VIAL SQ SCH ×3 (06:11→18:00)
[2020-03-25 08:10] LABS: BAND NEUTROPHILS % (MANUAL) 1 %; LYMPHOCYTES % (MANUAL) 1 % (19-48); MONOCYTES % (MANUAL) 3 % (3.4-9.0); NEUTROPHILS % (MANUAL) 95 % (40-74)
[2020-03-25 08:11] LABS: ANISOCYTOSIS SLIGHT; PLATELET ESTIMATE SLIGHTLY DECREASED; PLATELET MORPHOLOGY COMMENT FEW LARGE; RBC MORPHOLOGY COMMENT NORMAL
[2020-03-25] MEDS: PANTOPRAZOLE 40 MG 10ML VIAL IV SCH (08:47)
[2020-03-25] MEDS: AMIODARONE HCL 200 MG TAB NG SCH ×2 (08:47→17:24)
[2020-03-25] MEDS: METOPROLOL TARTRATE 50 MG TAB PO SCH ×2 (08:47→17:00)
[2020-03-25] MEDS: ASPIRIN 81 MG CHEW TAB PO SCH (08:47)
[2020-03-25] MEDS: ASCORBIC ACID 500 MG TAB PO SCH ×2 (08:49→17:24)
[2020-03-25] MEDS: BALSAM PERU/CASTOR OIL 60 GM OINT...G. TP SCH (08:49)
[2020-03-25] MEDS: ENOXAPARIN 30 MG/0.3 ML SYR SC SCH (08:49)
[2020-03-25] MEDS: CLOPIDOGREL BISULFATE 75 MG TAB PO SCH (08:49)
[2020-03-25] MEDS: CHOLECALCIFEROL 1,000 UNIT TAB PO SCH (08:49)
[2020-03-25] MEDS: PRAMIPEXOLE DIHYDROCHLORIDE 0.25 MG TAB PO SCH (08:49)
[2020-03-25] MEDS: CITRIC ACID/SODIUM CITRATE 30 ML UDC NG SCH ×2 (11:11→17:24)
[2020-03-25] MEDS ORDERED: HEPARIN SOD (PORCINE) 1000 UNIT/ML SDV IV PRN (14:15)
[2020-03-25] MEDS ORDERED: ALBUMIN 25% 25GM 100ML 200 ML ONE (14:52)
[2020-03-25] MEDS: ATORVASTATIN 40 MG TAB PO SCH (20:19)
[2020-03-25] MEDS: INSULIN GLARGINE 100 UNITS/ML VIAL SQ SCH (20:20)
[2020-03-26] VITALS (24 sets, daily range): BP systolic 94–157; BP diastolic 43–89
[2020-03-26] MEDS: NOREPINEPHRINE 8 MG/D5W 250 ML 250 ML IV SCH ×2 (02:35→15:52)
[2020-03-26 04:42] LABS: BASOPHILS % 0.2 % (0.0-1.0); EOSINOPHILS # (AUTO) 0.1 (0.0-0.4); EOSINOPHILS % 0.4 % (0.0-6.0); HEMATOCRIT 23.2 % (38.2-49.6); HEMOGLOBIN 7.4 g/dL (14.0-18.0); LYMPHOCYTES # (AUTO) 0.3 (1.0-3.2); LYMPHOCYTES % 2.5 % (18.0-39.1); MEAN CORPUSCULAR HEMOGLOBIN 28.7 pg (28-32); MEAN CORPUSCULAR HGB CONC 31.9 g/dL (31-35); MEAN CORPUSCULAR VOLUME 89.9 fL (81-99); MONOCYTES # (AUTO) 0.6 (0.2-0.8); MONOCYTES % 4.6 % (4.4-11.3); NEUTROPHILS # (AUTO) 12.3 (2.1-6.9); NEUTROPHILS % 91.6 % (38.7-80.0); PLATELET COUNT 76 x10e3/uL (140-360); RED BLOOD COUNT 2.58 x10e6/uL (4.3-5.7); RED CELL DISTRIBUTION WIDTH 16.1 % (11.7-14.4)
[2020-03-26 05:01] LABS: ALBUMIN 1.6 g/dL (3.5-5.0); ALBUMIN/GLOBULIN RATIO 0.5 (0.8-2.0); ANION GAP 15.9 mmol/L (8-16); CALCIUM 7.4 mg/dL (8.4-10.2); CREATININE, SERUM 2.43 mg/dL (0.72-1.25); POTASSIUM 3.9 mmol/L (3.5-5.1)
[2020-03-26] MEDS: FUROSEMIDE INJ 10 MG/ML 4 ML VIAL IV SCH ×3 (06:01→22:05)
[2020-03-26] MEDS: INSULIN LISPRO 100 UNIT/1 ML 3ML VIAL SQ SCH ×4 (06:03→18:27)
[2020-03-26] MEDS: PANTOPRAZOLE 40 MG 10ML VIAL IV SCH (08:27)
[2020-03-26] MEDS: CITRIC ACID/SODIUM CITRATE 30 ML UDC NG SCH (08:27)
[2020-03-26] MEDS: ASPIRIN 81 MG CHEW TAB PO SCH (08:27)
[2020-03-26] MEDS: AMIODARONE HCL 200 MG TAB NG SCH ×2 (08:27→15:52)
[2020-03-26] MEDS: METOPROLOL TARTRATE 50 MG TAB PO SCH ×2 (08:27→15:51)
[2020-03-26] MEDS: CLOPIDOGREL BISULFATE 75 MG TAB PO SCH (08:28)
[2020-03-26] MEDS: CHOLECALCIFEROL 1,000 UNIT TAB PO SCH (08:28)
[2020-03-26] MEDS: BALSAM PERU/CASTOR OIL 60 GM OINT...G. TP SCH (08:28)
[2020-03-26] MEDS: ASCORBIC ACID 500 MG TAB PO SCH ×2 (08:28→15:52)
[2020-03-26] MEDS: ENOXAPARIN 30 MG/0.3 ML SYR SC SCH (08:28)
[2020-03-26] MEDS: PRAMIPEXOLE DIHYDROCHLORIDE 0.25 MG TAB PO SCH (08:28)
[2020-03-26] MEDS: INSULIN GLARGINE 100 UNITS/ML VIAL SQ SCH (20:49)
[2020-03-26] MEDS: ATORVASTATIN 40 MG TAB PO SCH (20:54)
[2020-03-27] VITALS (22 sets, daily range): BP systolic 93–156; BP diastolic 43–75
[2020-03-27] MEDS: INSULIN LISPRO 100 UNIT/1 ML 3ML VIAL SQ SCH ×4 (00:08→17:19)
[2020-03-27] MEDS: NOREPINEPHRINE 8 MG/D5W 250 ML 250 ML IV SCH (01:42)
[2020-03-27] MEDS: FUROSEMIDE INJ 10 MG/ML 4 ML VIAL IV SCH ×3 (06:15→22:22)
[2020-03-27] MEDS ORDERED: ALBUMIN 25% 25GM 100ML 200 ML ONE (07:51)
[2020-03-27 08:06] LABS: BASOPHILS % 0.3 % (0.0-1.0); EOSINOPHILS # (AUTO) 0.2 (0.0-0.4); EOSINOPHILS % 1.2 % (0.0-6.0); LYMPHOCYTES # (AUTO) 0.3 (1.0-3.2); LYMPHOCYTES % 2.6 % (18.0-39.1); MEAN CORPUSCULAR HEMOGLOBIN 28.7 pg (28-32); MEAN CORPUSCULAR HGB CONC 31.6 g/dL (31-35); MEAN CORPUSCULAR VOLUME 90.7 fL (81-99); MONOCYTES # (AUTO) 0.6 (0.2-0.8); NEUTROPHILS % 89.9 % (38.7-80.0); PLATELET COUNT 78 x10e3/uL (140-360); RED BLOOD COUNT 2.37 x10e6/uL (4.3-5.7); RED CELL DISTRIBUTION WIDTH 16.3 % (11.7-14.4)
[2020-03-27] MEDS: AMIODARONE HCL 200 MG TAB NG SCH ×2 (08:15→15:56)
[2020-03-27] MEDS: ASPIRIN 81 MG CHEW TAB PO SCH (08:15)
[2020-03-27] MEDS: PANTOPRAZOLE 40 MG 10ML VIAL IV SCH (08:15)
[2020-03-27] MEDS: METOPROLOL TARTRATE 50 MG TAB PO SCH ×2 (08:16→15:56)
[2020-03-27 08:17] LABS: HEMATOCRIT 21.5 % (38.2-49.6); HEMOGLOBIN 6.8 g/dL (14.0-18.0)
[2020-03-27] MEDS ORDERED: SODIUM CHLORIDE 0.9% 250ML 250 ML IV ONE (08:30)
[2020-03-27 08:33] LABS: ALBUMIN 1.4 g/dL (3.5-5.0); ALBUMIN/GLOBULIN RATIO 0.5 (0.8-2.0); ANION GAP 15.7 mmol/L (8-16); CALCIUM 7.4 mg/dL (8.4-10.2); CREATININE, SERUM 3.12 mg/dL (0.72-1.25); POTASSIUM 3.7 mmol/L (3.5-5.1)
[2020-03-27] MEDS: ASCORBIC ACID 500 MG TAB PO SCH ×2 (08:41→15:56)
[2020-03-27] MEDS: CLOPIDOGREL BISULFATE 75 MG TAB PO SCH (08:41)
[2020-03-27] MEDS: ENOXAPARIN 30 MG/0.3 ML SYR SC SCH (08:41)
[2020-03-27] MEDS: CHOLECALCIFEROL 1,000 UNIT TAB PO SCH (08:41)
[2020-03-27] MEDS: BALSAM PERU/CASTOR OIL 60 GM OINT...G. TP SCH (09:09)
[2020-03-27] MEDS ORDERED: SUCCINYLCHOLINE CHLORIDE 20 MG/ML 10ML VIAL ONE (14:02)
[2020-03-27] MEDS ORDERED: ETOMIDATE 2 MG/ML 10 ML INJ IV ONE (14:02)
[2020-03-27 20:51] LABS: ABG PCO2 51 mmHg (35-45); ABG PH 7.34 (7.35-7.45)
[2020-03-27 20:52] LABS: ABG HCO3 28 mmol/L (22-26); ABG PO2 57 mmHg (80-105); ABG TCO2 29
[2020-03-27] MEDS: INSULIN GLARGINE 100 UNITS/ML VIAL SQ SCH (21:01)
[2020-03-27] MEDS: ATORVASTATIN 40 MG TAB PO SCH (21:20)
[2020-03-28] VITALS (25 sets, daily range): BP systolic 96–180; BP diastolic 47–92
[2020-03-28] MEDS: INSULIN LISPRO 100 UNIT/1 ML 3ML VIAL SQ SCH ×4 (06:00→17:26)
[2020-03-28] MEDS: FUROSEMIDE INJ 10 MG/ML 4 ML VIAL IV SCH ×3 (06:05→21:53)
[2020-03-28 06:33] LABS: BASOPHILS % 0.1 % (0.0-1.0); EOSINOPHILS # (AUTO) 0.1 (0.0-0.4); EOSINOPHILS % 0.8 % (0.0-6.0); HEMATOCRIT 22.2 % (38.2-49.6); HEMOGLOBIN 7.2 g/dL (14.0-18.0); LYMPHOCYTES # (AUTO) 0.3 (1.0-3.2); LYMPHOCYTES % 2.6 % (18.0-39.1); MEAN CORPUSCULAR HEMOGLOBIN 29.6 pg (28-32); MEAN CORPUSCULAR HGB CONC 32.4 g/dL (31-35); MEAN CORPUSCULAR VOLUME 91.4 fL (81-99); MONOCYTES # (AUTO) 0.4 (0.2-0.8); MONOCYTES % 3.7 % (4.4-11.3); NEUTROPHILS # (AUTO) 9.6 (2.1-6.9); NEUTROPHILS % 91.9 % (38.7-80.0); PLATELET COUNT 53 x10e3/uL (140-360); RED BLOOD COUNT 2.43 x10e6/uL (4.3-5.7); RED CELL DISTRIBUTION WIDTH 15.5 % (11.7-14.4)
[2020-03-28 07:04] LABS: ALBUMIN 1.9 g/dL (3.5-5.0); ALBUMIN/GLOBULIN RATIO 0.7 (0.8-2.0); CALCIUM 7.2 mg/dL (8.4-10.2); CREATININE, SERUM 2.06 mg/dL (0.72-1.25)
[2020-03-28] MEDS: ASPIRIN 81 MG CHEW TAB PO SCH (08:05)
[2020-03-28] MEDS: METOPROLOL TARTRATE 50 MG TAB PO SCH ×2 (08:05→17:00)
[2020-03-28] MEDS: AMIODARONE HCL 200 MG TAB NG SCH ×2 (08:05→17:25)
[2020-03-28] MEDS: PANTOPRAZOLE 40 MG 10ML VIAL IV SCH (08:05)
[2020-03-28] MEDS: CLOPIDOGREL BISULFATE 75 MG TAB PO SCH (08:06)
[2020-03-28] MEDS: ENOXAPARIN 30 MG/0.3 ML SYR SC SCH (08:06)
[2020-03-28] MEDS: BALSAM PERU/CASTOR OIL 60 GM OINT...G. TP SCH (08:06)
[2020-03-28] MEDS: ASCORBIC ACID 500 MG TAB PO SCH ×2 (08:06→17:25)
[2020-03-28] MEDS: CHOLECALCIFEROL 1,000 UNIT TAB PO SCH (08:06)
[2020-03-28] MEDS: NOREPINEPHRINE 8 MG/D5W 250 ML 250 ML IV SCH (10:09)
[2020-03-28] MEDS ORDERED: POTASSIUM CHLORIDE 20MEQ/100ML 100 ML IV ONE (15:30)
[2020-03-28] MEDS: INSULIN GLARGINE 100 UNITS/ML VIAL SQ SCH (20:55)
[2020-03-28] MEDS: ATORVASTATIN 40 MG TAB PO SCH (21:20)
[2020-03-29] VITALS (22 sets, daily range): BP systolic 94–134; BP diastolic 41–81
[2020-03-29] MEDS: INSULIN LISPRO 100 UNIT/1 ML 3ML VIAL SQ SCH ×4 (06:00→18:00)
[2020-03-29] MEDS: FUROSEMIDE INJ 10 MG/ML 4 ML VIAL IV SCH ×3 (06:01→21:43)
[2020-03-29 06:31] LABS: BASOPHILS % 0.3 % (0.0-1.0); EOSINOPHILS # (AUTO) 0.1 (0.0-0.4); EOSINOPHILS % 0.7 % (0.0-6.0); HEMATOCRIT 22.3 % (38.2-49.6); HEMOGLOBIN 7.2 g/dL (14.0-18.0); LYMPHOCYTES # (AUTO) 0.2 (1.0-3.2); LYMPHOCYTES % 2.3 % (18.0-39.1); MEAN CORPUSCULAR HEMOGLOBIN 28.9 pg (28-32); MEAN CORPUSCULAR HGB CONC 32.3 g/dL (31-35); MEAN CORPUSCULAR VOLUME 89.6 fL (81-99); MONOCYTES # (AUTO) 0.3 (0.2-0.8); MONOCYTES % 3.3 % (4.4-11.3); NEUTROPHILS # (AUTO) 8.3 (2.1-6.9); NEUTROPHILS % 92.6 % (38.7-80.0); PLATELET COUNT 51 x10e3/uL (140-360); RED BLOOD COUNT 2.49 x10e6/uL (4.3-5.7); RED CELL DISTRIBUTION WIDTH 15.7 % (11.7-14.4)
[2020-03-29 06:43] LABS: ALBUMIN 1.7 g/dL (3.5-5.0); ALBUMIN/GLOBULIN RATIO 0.6 (0.8-2.0); ANION GAP 14.2 mmol/L (8-16); CALCIUM 7.4 mg/dL (8.4-10.2); CREATININE, SERUM 2.63 mg/dL (0.72-1.25); POTASSIUM 3.2 mmol/L (3.5-5.1)
[2020-03-29] MEDS: METOPROLOL TARTRATE 50 MG TAB PO SCH ×2 (07:32→17:00)
[2020-03-29] MEDS: BALSAM PERU/CASTOR OIL 60 GM OINT...G. TP SCH (08:02)
[2020-03-29] MEDS: PANTOPRAZOLE 40 MG 10ML VIAL IV SCH (08:02)
[2020-03-29] MEDS: AMIODARONE HCL 200 MG TAB NG SCH ×2 (08:02→17:09)
[2020-03-29] MEDS: ASPIRIN 81 MG CHEW TAB PO SCH (08:02)
[2020-03-29] MEDS: CLOPIDOGREL BISULFATE 75 MG TAB PO SCH (08:02)
[2020-03-29] MEDS: NOREPINEPHRINE 8 MG/D5W 250 ML 250 ML IV SCH (10:00)
[2020-03-29] MEDS ORDERED: DEXTROSE 50% SYRINGE 50 ML IV PRN (12:15)
[2020-03-29] MEDS: INSULIN GLARGINE 100 UNITS/ML VIAL SQ SCH (21:00)
[2020-03-29] MEDS: ATORVASTATIN 40 MG TAB PO SCH (21:07)
[2020-03-30] VITALS (10 sets, daily range): BP systolic 102–147; BP diastolic 43–73
[2020-03-30] MEDS: INSULIN LISPRO 100 UNIT/1 ML 3ML VIAL SQ SCH ×2 (00:40→05:46)
[2020-03-30] MEDS: FUROSEMIDE INJ 10 MG/ML 4 ML VIAL IV SCH (05:46)
[2020-03-30] MEDS: METOPROLOL TARTRATE 50 MG TAB PO SCH (07:53)
[2020-03-30] MEDS: BALSAM PERU/CASTOR OIL 60 GM OINT...G. TP SCH (09:00)
[2020-03-30] MEDS: PANTOPRAZOLE 40 MG 10ML VIAL IV SCH (09:00)
[2020-03-30] MEDS: CLOPIDOGREL BISULFATE 75 MG TAB PO SCH (09:00)
[2020-03-30] MEDS: ASPIRIN 81 MG CHEW TAB PO SCH (09:00)
[2020-03-30] MEDS: AMIODARONE HCL 200 MG TAB NG SCH (09:00)
[2020-03-30] MEDS ORDERED: LORAZEPAM INJ 2 MG/ML VIAL IV PRN (10:30)
[2020-03-30] MEDS ORDERED: MORPHINE SULFATE INJ 2 MG/ML SYR IV PRN (10:30)
[2020-03-30] MEDS ORDERED: MORPHINE SULFATE INJ 2 MG/ML SYR ONE (10:39)
[2020-03-30] MEDS ORDERED: LORAZEPAM INJ 2 MG/ML VIAL ONE (10:40)
== END 2020-03-30 19:00 | disposition expired | DRG 981 ==
LOC: ER 12:17 → ERHOLD 14:25 → UNDOADMIN 14:25 → ERHOLD 17:35 → IMCU 03-02 16:32 → COVIDICU 03-05 20:23 → IMCU 03-30 11:58
PROVIDERS: ADMIT Internal Medicine; ATTEND Internal Medicine
PROC: 8E0ZXY6 Isolation (ICD-10-PCS; 2020-02-27)
PROC: 02HV33Z Insertion of Infusion Device into Superior Vena Cava, Percutaneous Approach (ICD-10-PCS; 2020-02-28)
PROC: B548ZZA Ultrasonography of Superior Vena Cava, Guidance (ICD-10-PCS; 2020-02-28)
PROC: 30233N1 Transfusion of Nonautologous Red Blood Cells into Peripheral Vein, Percutaneous Approach (ICD-10-PCS; 2020-02-29)
PROC: 5A1955Z Respiratory Ventilation, Greater than 96 Consecutive Hours (ICD-10-PCS; principal; 2020-03-01)
PROC: 0BH18EZ Insertion of Endotracheal Airway into Trachea, Via Natural or Artificial Opening Endoscopic (ICD-10-PCS; 2020-03-01)
PROC: 05HM33Z Insertion of Infusion Device into Right Internal Jugular Vein, Percutaneous Approach (ICD-10-PCS; 2020-03-03)
PROC: B543ZZA Ultrasonography of Right Jugular Veins, Guidance (ICD-10-PCS; 2020-03-03)
PROC: 027036Z Dilation of Coronary Artery, One Artery with Three Drug-eluting Intraluminal Devices, Percutaneous Approach (ICD-10-PCS; 2020-03-08)
PROC: 4A023N7 Measurement of Cardiac Sampling and Pressure, Left Heart, Percutaneous Approach (ICD-10-PCS; 2020-03-08)
PROC: B2111ZZ Fluoroscopy of Multiple Coronary Arteries using Low Osmolar Contrast (ICD-10-PCS; 2020-03-08)
PROC: B2151ZZ Fluoroscopy of Left Heart using Low Osmolar Contrast (ICD-10-PCS; 2020-03-08)
PROC: 5A1935Z Respiratory Ventilation, Less than 24 Consecutive Hours (ICD-10-PCS; 2020-03-23)
PROC: 0BH17EZ Insertion of Endotracheal Airway into Trachea, Via Natural or Artificial Opening (ICD-10-PCS; 2020-03-23)
DX: U07.1 COVID-19 (principal); J12.82 Pneumonia due to coronavirus disease 2019; I21.A1 Myocardial infarction type 2; N17.0 Acute kidney failure with tubular necrosis; J96.21 Acute and chronic respiratory failure with hypoxia; A41.9 Sepsis, unspecified organism; R65.21 Severe sepsis with septic shock; I50.21 Acute systolic (congestive) heart failure; G93.1 Anoxic brain damage, not elsewhere classified; D62 Acute posthemorrhagic anemia; M62.82 Rhabdomyolysis; N17.9 Acute kidney failure, unspecified; N39.0 Urinary tract infection, site not specified; K92.2 Gastrointestinal hemorrhage, unspecified; E87.2 Acidosis; R57.9 Shock, unspecified; I13.0 Hypertensive heart and chronic kidney disease with heart failure and stage 1 through stage 4 chronic kidney disease, or unspecified chronic kidney disease; D50.0 Iron deficiency anemia secondary to blood loss (chronic); E78.5 Hyperlipidemia, unspecified; E11.22 Type 2 diabetes mellitus with diabetic chronic kidney disease; I25.10 Atherosclerotic heart disease of native coronary artery without angina pectoris; Z79.4 Long term (current) use of insulin; F17.210 Nicotine dependence, cigarettes, uncomplicated; Z82.49 Family history of ischemic heart disease and other diseases of the circulatory system; Z80.9 Family history of malignant neoplasm, unspecified; I16.0 Hypertensive urgency; E11.649 Type 2 diabetes mellitus with hypoglycemia without coma; N18.30 Chronic kidney disease, stage 3 unspecified; E83.51 Hypocalcemia; I48.91 Unspecified atrial fibrillation; E83.39 Other disorders of phosphorus metabolism; Z66 Do not resuscitate
CPT/HCPCS: 31500; 36415; 36569; 36600; 70450; 71045; 74018; 74176; 74470; 76770; 80048; 80053; 80061; 81001; 82140; 82270; 82550; 82553; 82570; 82607; 82746; 82805; 82948; 83036; 83540; 83735; 83880; 84100; 84156; 84443; 84466; 84484; 84550; 85014; 85018; 85025; 85610; 85730; 86704; 86705; 86706; 86850; 86870; 86880; 86900; 86905; 86920; 86922; 87040; 87070; 87071; 87205; 87340; 90962; 92928; 93005; 93306; 93458; 94002; 94003; 94660; 95812; 96372; 97139; 99001; 99152; 99153; 99251; 99285; C1725; C1760; C1769; C1874; C1887; J0330; J0360; J0456; J0610; J0696; J1100; J1644; J1650; J1756; J1815; J1940; J2001; J2060; J2150; J2250; J2270; J3010; J3370; J3480; J3486; J7030; J7050; J7060; J7070; J7799; P9016; P9045; P9047; U0002